=== PATIENT | female | born 1960 | race Caucasian/White ===

== ENCOUNTER 2023-03-20 16:30 | Emergency (ER) | payer OTHER, SELFPAY ==
[2023-03-20 16:32] VITALS: BP 151/98; PULSE 101; RESP 16; TEMP 36.8; O2SAT 97; BMI 30.4
--- NOTE | 2023-03-20 17:05 | EDS_ITS ---
HPI History of Present Illness HPI Narrative: Patient presents with pain in her left hip that has been getting progressively worse over the last 2 months. Patient states it came on gradually. Patient states it is constant. Patient describes her pain as aching. Patient states it is worse with ambulation and movement. Patient states he gets a little better with Epsom salt baths. Patient denies any paresthesias or weakness. Patient denies any trauma or injury. Patient states she has been taking Aleve with minimal relief. Chief Complaint: Lower Extremity Injury Informant: patient Onset/Context/Timing Onset: Month(s) (2) Context: Gradual Onset Timing: Continuous Quality of Pain: Aching Location: Left hip Worsened by: Ambulation Relieved by: Epsom salt baths Associated Symptoms Associated Symptoms: Negative for Parasthesia, Weakness or Loss of Funtion PFSH PFSH Medical History no medical history no medical history Home Medications hydrocodone-acetaminophen 5-325mg 5mg-325mg 1 tab PO Q6H PRN PRN Pain 3 days #10 TABLETS 03/20/23 [Rx Last Taken Unknown] Allergy/AdvReac Type Severity Reaction Status Date / Time No Known Allergies Allergy Verified 03/20/23 16:32 Surgical History (Updated 03/20/23 @ 17:[address] Kirill Mcgarry DO) History of colon resection History of hysterectomy Hx of inguinal herniorrhaphy Hx of resection of small bowel Social History Smoking Status: Never smoker ROS ROS ED Constitutional Constitutional ED: Denies chills or fever(s) Eyes Eyes: Denies blurry vision or change in vision ENT ENT ED: Denies rhinorrhea or sore throat Cardiovascular Cardiovascular: Denies chest pain or palpitations Respiratory/Chest Respiratory/Chest: Denies cough or dyspnea Gastrointestinal Gastrointestinal: Reports nausea; Denies vomiting Genitourinary Genitourinary ED: Denies dysuria or hematuria Musculoskeletal Musculoskeletal: Denies back pain or neck pain Integumentary Denies abscess or rash Neurologic Neurologic: Denies headache(s) or weakness Allergic/Immunologic Allergic/Immunologic ED: Denies mouth swelling or urticaria EXAM Physical Exam Const Vital Signs: 03/20/23 16:32 Temperature 98.2 F Temperature Source Temporal Pulse Rate 101 H Respiratory Rate 16 Blood Pressure 151/98 H Blood Pressure Mean 115 Pulse Ox 97 Oxygen Delivery Method Room Air Positive well nourished and well developed General Appearance ED: well developed and NAD HEENT Reports moist mucous membranes Neck full ROM and supple Extremity Extremity Narrative: There is tenderness over the anterior lateral aspect of the left hip. There is no bony crepitance or step-off. There is no obvious deformity noted. There is pain with internal and external rotation. There is some pain with resistive abduction and flexion. There is no calf tenderness or edema. Strength is 5/5 bilaterally in lower extremities. There are no sensory deficits noted. Pulses are equal bilaterally. Neuro oriented x3, CN's II-XII intact bilaterally, moves all extremities and no sensory deficits noted Sensorium / Orientation: alert Motor Exam: strength 5/5 throughout Psych mental status grossly normal MDM MDM MDM Narrative Medical decision making narrative: Differential diagnosis includes degenerative arthritis, occult fracture, and DVT. X-rays of the left hip will be obtained to assess for fracture and degenerative arthritis. Venous duplex of the left lower extremity will be obtained to assess for DVT. Radiography Diagnostic Testing: Clinical Impression(s) from Imaging Studies Hip/Pelvis X-Ray 03/20/23 17:56 IMPRESSION: No fracture Electronically Signed: Levon Gruber MD at 18:28 EST , X-rays of the left hip were obtained. There are 3 views. On my independent interpretation, there is no acute fracture. There are no degenerative changes noted. There is no soft tissue swelling noted. Radiologist also interpreted the x-rays and agrees. Venous duplex of the left lower extremity was obtained. There is no evidence of DVT. Treatment and Re-Evaluation Narrative: Patient was given a dose of morphine and Norflex. Patient states she is feeling somewhat better. Patient was given crutches. Patient was given a prescription for short course of [place]. Patient was instructed to continue using ice to the area. Patient was instructed to follow-up with her primary care physician in 5 to 7 days for further evaluation. Patient understood and was agreeable with the plan. All questions were answered. Discharge Plan Triage Chief Complaint: Lower Extremity Injury ED Provider: Kirill Mcgarry Dx/Rx/DC Orders Clinical Impression: Acute pain of left hip Instructions: ED Hip Strain Prescriptions: New hydrocodone-acetaminophen [hydrocodone-acetaminophen] 5-325 mg tablet 1 tab PO Q6H PRN PRN (Reason: Pain) 3 Days Qty: 10 0RF Primary Care Provider: Tiffany Pressley Referrals: Tiffany Pressley, [Primary Care Provider] - 5-7 Days Disposition Disposition: Home, Self Care
[2023-03-20] MEDS: Orphenadrine 60 MG/2 ML Ampul IM (17:45)
[2023-03-20] MEDS: Morphine 4 MG/ML Syringe IM (17:45)
--- NOTE | 2023-03-20 17:54 | US_ITS ---
STUDY: VENOUS DOPPLER ULTRASOUND - LEFT LOWER EXTREMITY REASON FOR EXAM: Female, 62 years old. LEFT HIP PAIN TECHNIQUE: Ultrasound evaluation of the deep vein system to include bone-scale imaging and compression was performed. Bone-scale imaging and Doppler sonographic evaluation, including duplex spectral analysis and qualitative color flow sonography, was performed. COMPARISON: None. FINDINGS: Common Femoral Vein: Normal compression, spontaneity and augmentation. Normal color Doppler. Common Femoral Vein/Greater Saphenous Junction: Normal compression, spontaneity and augmentation. Normal color Doppler. Deep Femoral Vein: Normal compression, spontaneity and augmentation. Normal color Doppler. Femoral Proximal: Normal compression, spontaneity and augmentation. Normal color Doppler. Femoral Middle: Normal compression, spontaneity and augmentation. Normal color Doppler. Femoral Distal: Normal compression, spontaneity and augmentation. Normal color Doppler. Popliteal Vein: Normal compression, spontaneity and augmentation. Normal color Doppler. Posterior Tibial Vein: Normal compression, spontaneity and augmentation. Normal color Doppler. Peroneal Vein: Normal compression, spontaneity and augmentation. Normal color Doppler. US/Venous Duplex Imag/Limited/Uni IMPRESSION: Normal venous Doppler ultrasound of the lower extremity. Electronically Signed: Levon Gruber MD at 20:36 EST ,
--- NOTE | 2023-03-20 17:56 | RAD_ITS ---
STUDY: X-RAY - PELVIS AND LEFT HIP REASON FOR EXAM: Female, 62 years old. Injury/Pain TECHNIQUE: 3 views of the pelvis and hip. COMPARISON: None. FINDINGS: There is a non-specific bowel gas pattern. Normal visualized soft tissue structures. Scoliosis. Normal bilateral iliac wings, sacroiliac joints and visualized sacrum. Normal bilateral superior and inferior pubic rami. Normal pubic symphysis. Normal bilateral ischial tuberosities. Normal visualized femoral head. Normal acetabulum. Normal hip joint. RAD/HIP, UNI W/ Pelvis 2-3 Views IMPRESSION: No fracture Electronically Signed: eLvon Gruber MD at 18:28 EST ,
--- NOTE | 2023-03-20 20:17 | ED.RN ---
Pt instructed not to leave waiting room until 2144 because of morphine. Pt agreeing with plan.
== END 2023-03-20 20:17 | disposition home or self-care (01) ==
PROVIDERS: Emergency Provider Emergency Medicine; PCP Family Medicine; Visit Provider Emergency Medicine
DX: M25.552 Pain in left hip (principal)
CPT/HCPCS: 73502; 93971; 96372; 99283

== ENCOUNTER → 2023-08-11 | Outpatient (CLI) | payer BC, SELFPAY ==
[2023-08-11 12:04] LABS: Absolute Lymphocyte Count 2.03 X10^3/uL (0.83-4.51); Basophil# 0.04 X10^3/uL; Basophil% 0.7 % (0-1); Eosinophils% 3.5 % (0-5); Hematocrit 41.3 % (37-47); Hemoglobin 13.4 g/dL (12.0-15.0); Lymphocyte # 2.03 X10^3/ul (0.83-4.51); Lymphocyte % 35.2 % (19-41); Mean Corp Hgb Conc 32.4 g/dL (32-36); Mean Corpuscular Volume 95.6 fL (81-99); Mean Platelet Vol. 9.7 fl (6.2-12.0); Monocyte# 0.46 X10^3/uL; NRBC Flagged by Analyzer 0 % (0-5); Neutrophil # 3.02 X10^3/uL (2.7-7.7); Neutrophil % 52.3 % (47-70); Platelet Count 323 K/mm3 (150-450); RBC Distribution Width CV 12.2 % (11.6-14.6); RBC Distribution Width SD 42.3 fl (35.1-43.9); Red Blood Count 4.32 M/mm3 (4.2-5.4); White Blood Count 5.8 K/mm3 (4.4-11.0)
[2023-08-11 12:27] LABS: AST(SGOT) 23 U/L (15-37); Alanine Aminotransfer ALT/SGPT 22 U/L (13-56); Albumin, Serum 3.4 g/dL (3.2-5.0); Alkaline Phosphatase 75 U/L (45-117); Anion Gap 9 (5-15); BUN 6 mg/dL (7-18); BUN/Creat Ratio 5.5 RATIO (10-20); Chloride 108 mmol/L (98-107); Cholesterol 344 mg/dL (200); EST Glomerular Filtration Rate 53 mL/min (>60); Est Glom Filt Rate - Afr Amer 65 mL/min (>60); Globulin 3.4 g/dL (2.2-4.2); Glucose 86 mg/dL (74-106); High Density Lipoprotein 56 mg/dL; Potassium 4.2 mmol/L (3.5-5.1); Protein, Total 6.8 g/dL (6.4-8.2); Sodium Level 142 mmol/L (136-145); Thyroid Stim Hormone (TSH) 1.97 uIU/mL (0.358-3.74); Triglycerides 323 mg/dL; Very Low Density Lipoprotein 65 mg/dL (5-40)
[2023-08-13 13:54] LABS: Vitamin D,25 Hydroxy 18.4 ng/mL
== END | disposition home or self-care (01) ==
PROVIDERS: PCP Family Medicine; Referring Provider Family Medicine; Visit Provider Family Medicine
DX: F32.A Depression, unspecified (principal); Z13.220 Encounter for screening for lipoid disorders; Z13.1 Encounter for screening for diabetes mellitus
CPT/HCPCS: 36415; 80053; 80061; 82306; 84443; 85025

== ENCOUNTER → 2023-12-31 | Outpatient (CLI) | payer BC, SELFPAY ==
[2023-12-31 10:02] LABS: Absolute Neutrophil Count 4.4 X10^3/uL (2.0-7.7); Basophil# 0.04 X10^3/uL; Basophil% 0.6 % (0-1); Eosinophil# 0.12 X10^3/uL; Eosinophils% 1.7 % (0-5); Hematocrit 40.3 % (37-47); Hemoglobin 13.5 g/dL (12.0-15.0); Lymphocyte % 29.6 % (19-41); Mean Corp Hgb Conc 33.5 g/dL (32-36); Mean Corpuscular Hgb 31.5 pg (27.0-32.0); Mean Corpuscular Volume 93.9 fL (81-99); Mean Platelet Vol. 9.3 fl (6.2-12.0); Monocyte% 5.6 % (0-10); NRBC Flagged by Analyzer 0 % (0-5); Neutrophil # 4.41 X10^3/uL (2.7-7.7); Neutrophil % 62.2 % (47-70); Platelet Count 315 K/mm3 (150-450); RBC Distribution Width CV 12.1 % (11.6-14.6); RBC Distribution Width SD 41.9 fl (35.1-43.9); Red Blood Count 4.29 M/mm3 (4.2-5.4); White Blood Count 7.1 K/mm3 (4.4-11.0)
[2023-12-31 10:09] LABS: Erythrocyte Sedimentation Rate 5 mm/hr (0-30)
[2023-12-31 10:45] LABS: AST(SGOT) 17 U/L (15-37); Alanine Aminotransfer ALT/SGPT 25 U/L (13-56); Albumin, Serum 3.4 g/dL (3.2-5.0); Alkaline Phosphatase 78 U/L (45-117); Amylase 33 U/L (25-115); Anion Gap 7 (5-15); BUN 10 mg/dL (7-18); BUN/Creat Ratio 10.1 RATIO (10-20); Calcium,Total 9.1 mg/dL (8.5-10.1); Chloride 106 mmol/L (98-107); Creatinine, Serum 0.99 mg/dL (0.55-1.02); EST Glomerular Filtration Rate 60 mL/min (>60); Est Glom Filt Rate - Afr Amer 73 mL/min (>60); Globulin 3.4 g/dL (2.2-4.2); Glucose 107 mg/dL (74-106); Lipase 31 U/L (13-75); Potassium 3.9 mmol/L (3.5-5.1); Protein, Total 6.8 g/dL (6.4-8.2); Sodium Level 139 mmol/L (136-145)
== END | disposition home or self-care (01) ==
LOC: MTLAB 07:42
PROVIDERS: PCP Family Medicine; Referring Provider Nurse Practitioner Adult Health; Visit Provider Nurse Practitioner Adult Health
DX: R10.32 Left lower quadrant pain (principal); K62.89 Other specified diseases of anus and rectum; R19.7 Diarrhea, unspecified; R11.0 Nausea; R53.83 Other fatigue
CPT/HCPCS: 36415; 80053; 82150; 83690; 83735; 85025; 85652

== ENCOUNTER → 2024-01-01 | Outpatient (CLI) | payer BC, SELFPAY | END | disposition home or self-care (01) | PROVIDERS: PCP Family Medicine; Referring Provider Nurse Practitioner Adult Health; Visit Provider Nurse Practitioner Adult Health | DX: R10.32 Left lower quadrant pain (principal); K62.89 Other specified diseases of anus and rectum; R19.7 Diarrhea, unspecified; R11.0 Nausea; R53.83 Other fatigue | CPT/HCPCS: 82274; 83630; 87177; 87209; 87493; 87506 ==

== ENCOUNTER → 2024-05-26 | Outpatient (CLI) | payer BC, SELFPAY ==
--- NOTE | 2024-05-26 10:13 | RAD_ITS ---
PROCEDURE: LUMBAR SPINE 2 OR 3 VIEWS 05/26/2024 REASON FOR EXAM: NEW PAIN WITH SCIATICA TECHNIQUE: 3 view(s) of the lumbar spine COMPARISON: None FINDINGS: Vertebrae: Pain vertebral body heights without findings. Discs: Advanced multilevel disc space narrowing with endplate osteophytes. Alignment: [id number] lumbar levoscoliosis. Mild leftward subluxation of L3 on L4. Facet arthrosis increases from superior to inferior. RAD/Lumbar Spine 2 or 3 Views IMPRESSION: ADVANCED DEGENERATIVE CHANGES OF THE LUMBAR SPINE. Reading Location: [facility]
--- NOTE | 2024-05-26 10:13 | RAD_ITS ---
PROCEDURE: HIP, UNI W/ PELVIS 2-3 VIEWS 05/26/2024 REASON FOR EXAM: PAIN, NEW TECHNIQUE: Three views of the left hip COMPARISON: None FINDINGS: Bones: Unremarkable. Joints: Mild degree of left hip joint space narrowing. Sclerosis of the symphysis pubis. Soft tissues: Calcified phleboliths in the left hemipelvis. Other: RAD/HIP, UNI W/ Pelvis 2-3 Views IMPRESSION: Mild degree of joint space narrowing of the left hip joint as well as narrowing and sclerosis of the symphysis pubis. Reading Location: [place] [id number]
[2024-05-26 13:01] LABS: Absolute Lymphocyte Count 2.04 X10^3/uL (0.83-4.51); Absolute Neutrophil Count 4.9 X10^3/uL (2.0-7.7); Basophil# 0.03 X10^3/uL; Basophil% 0.4 % (0-1); Eosinophil# 0.15 X10^3/uL; Hematocrit 39.9 % (37-47); Hemoglobin 13.1 g/dL (12.0-15.0); Lymphocyte # 2.04 X10^3/ul (0.83-4.51); Lymphocyte % 26.8 % (19-41); Mean Corp Hgb Conc 32.8 g/dL (32-36); Mean Corpuscular Volume 94.5 fL (81-99); Mean Platelet Vol. 9.9 fl (6.2-12.0); Monocyte# 0.42 X10^3/uL; Monocyte% 5.5 % (0-10); NRBC Flagged by Analyzer 0 % (0-5); Neutrophil # 4.94 X10^3/uL (2.7-7.7); Platelet Count 323 K/mm3 (150-450); RBC Distribution Width CV 12.3 % (11.6-14.6); RBC Distribution Width SD 42.7 fl (35.1-43.9); Red Blood Count 4.22 M/mm3 (4.2-5.4); White Blood Count 7.6 K/mm3 (4.4-11.0)
[2024-05-26 13:59] LABS: ALB/GLOB Ratio 1.6 RATIO (0.9-2.4); AST(SGOT) 27 U/L (<=31); Alanine Aminotransfer ALT/SGPT 32 U/L (<=34); Albumin, Serum 4.2 g/dL (3.4-4.8); Alkaline Phosphatase 78 U/L (35-104); Anion Gap 15 (5-15); BUN 13 mg/dL (4-19); Calcium,Total 9.6 mg/dL (7.6-11.0); Chloride 103 mmol/L (98-108); Cholesterol 328 mg/dL (<=200); Creatinine, Serum 1.11 mg/dL (0.70-1.20); EST Glomerular Filtration Rate 56 (>60); Globulin 2.6 g/dL (2.2-4.2); Glucose 94 mg/dL (70-99); High Density Lipoprotein 53 mg/dL; Low Density Lipoprotein Calc. 222 mg/dL; Potassium 3.9 mmol/L (3.3-5.1); Protein, Total 6.8 g/dL (5.9-8.4); Sodium Level 141 mmol/L (133-145); Triglycerides 265 mg/dL; Very Low Density Lipoprotein 53 mg/dL (5-40); cholesterol:hdl ratio screen 6.14
== END | disposition home or self-care (01) ==
PROVIDERS: PCP Family Medicine; Referring Provider Family Medicine; Visit Provider Family Medicine
DX: Z13.220 Encounter for screening for lipoid disorders (principal); R53.83 Other fatigue; R03.0 Elevated blood-pressure reading, without diagnosis of hypertension; M25.552 Pain in left hip; M54.50 Low back pain, unspecified
CPT/HCPCS: 36415; 72100; 73502; 80053; 80061; 82306; 84443; 85025

== ENCOUNTER → 2024-06-14 | Outpatient (CLI) | payer BC, SELFPAY ==
--- NOTE | 2024-06-14 10:25 | BD_ITS ---
PROCEDURE: DEXA BONE DENSITY STUDY 06/14/2024 REASON FOR EXAM: F, age 64 y/o . Postmenopausal. TECHNIQUE: DEXA scan of sites with data reported below. Scanner utilized: [employer] REFERENCE LINKS: [facility] Position[facility] COMPARISON: None FINDINGS: BMD and T-SCORES Lumbar spine: 1.332 g/cm2, T-score 2.6 Levels: L1 through L4 Left femoral neck: 0.934 g/cm2, T-score 0.8 Left total hip: 1.135 g/cm2, T-score 1.6 Right femoral neck: 0.911 g/cm2, T-score 0.6 Right total hip: 1.119 g/cm2, T-score 1.5 The World Health Organization has defined the following categories based on bone density: Normal bone density: T-score equal to or greater than -1.0 Osteopenia: T-score between -1.0 and -2.5 Osteoporosis: T-score equal to or less than -2.5 FRAX (or Comparable) Fracture Risk Assessment: 10 Year Probability of Fracture: Major Osteoporotic Fracture: 5.7% Hip Fracture: 0.1% (Note: FRAX is not to be reported in setting of normal range bone density, osteoporosis on DEXA, known history of osteoporosis, prior osteoporotic hip or vertebral fracture, or for any patient undergoing pharmacological treatment for bone loss.) The National Osteoporosis Foundation (NOF) recommends pharmacological treatment for patients with a FRAX 10-year risk of 3% or higher for a hip fracture, or 20% or higher for a major osteoporotic fracture, to prevent osteoporosis and reduce fracture risk. The patient does not meet the pharmacological treatment recommendations for prevention of osteoporosis. BD/Dexa Bone Density Study IMPRESSION: NORMAL T-SCORES. Recommend follow-up as clinically warranted. Reading Location: [id number]
== END | disposition home or self-care (01) ==
LOC: OPBD 10:17
PROVIDERS: PCP Family Medicine; Referring Provider Family Medicine; Visit Provider Family Medicine
DX: Z78.0 Asymptomatic menopausal state (principal); M54.40 Lumbago with sciatica, unspecified side; G47.10 Hypersomnia, unspecified
CPT/HCPCS: 77080

== ENCOUNTER → 2024-07-26 | Outpatient (CLI) | payer BC, SELFPAY ==
--- OUTSIDE RECORDS SUMMARY | 2024-07-26 10:11 | XMS RPT_ITS | CCD ---
Author Organization [facility] CliniSyid Care Team Providers Care Rn Navigator Name Role Phone HOMER CASTANEDA Unavailable Unavailable HOMER CASTANEDA Unavailable Unavailable Pending Provider Unavailable Unavailable Unavailable Unavailable Beto Pressley DO Primary Care Provider [phone] BETO PRESSLEY Primary Care Unavailable CHATA, LUISITO P Referring Unavailable BETO PRESSLEY Primary Care Unavailable CHATA, LUISITO P Referring Unavailable BETO PRESSLEY Primary Care Unavailable CHATA, LUISITO P Referring Unavailable CHATA LUISITO P Attending Unavailable BETO PRESSLEY Primary Care Unavailable Hector JAVED, Naz Mohan Primary Care Provider [phone] Rupinder JAVED, Pretty Primary Care Provider [phone] Pretty Bucio MD Attending Provider [phone] Pretty Bucio MD Referring Provider Elisabeth Jackson Attending Provider Nikolay JAVED, Dr. Landis Attending Provider TRASKA, BIANCA Attending Unavailable Rupinder, Chalon Primary Care Unavailable TRASKA, BIANCA Referring Unavailable Rupinder, Chalon Primary Care Unavailable TRASKA, BIANCA Referring Unavailable TRASKA, BIANCA Attending Unavailable Rupinder, Chalon Referring Unavailable Rupinder, Chalon Attending Unavailable Rupinder, Chalon Primary Care Unavailable Rupinder, Chalon Primary Care Unavailable Rupinder, Chalon Referring Unavailable Rupinder, Chalon Attending Unavailable Rupinder, Chalon Primary Care Unavailable Rupinder, Chalon Referring Unavailable Rupinder, Chalon Attending Unavailable TRASKA, IBANCA Attending Unavailable Rupinder, Chalon Primary Care Unavailable TRASKA, BIANCA Referring Unavailable Rupinder, Chalon Primary Care Unavailable Rupinder, Chalon Referring Unavailable Rupinder, Chalon Attending Unavailable Rupinder, Chalon Primary Care Unavailable Vidhi, Elisabeth Referring Unavailable Vidhi, Elisabeth Attending Unavailable Rupinder, Chalon Primary Care Unavailable Boby Lnik Attending Unavailable Rupinder, Chalon Primary Care Unavailable Rupinder, Chalon Referring Unavailable Vidhi, Elisabeth Attending Unavailable Rupinder, Chalon Primary Care Unavailable Vidhi, Elisabeth Referring Unavailable Vidhi, Elisabeth Attending Unavailable Allergies Allergy Classification Reported Allergen(s) Allergy Type Date of Onset Reaction(s) Facility (7 sources) doxycycline; Translations: [DOXYCYCLINE] Drug Allergy 3 Unknown, Other [facility] (7 sources) propoxyphene; Translations: [PROPOXYPHENE] Drug Allergy 4 [facility] (6 sources) Sulfonamides (Antibiotic); Translations: [SULFA (SULFONAMIDE ANTIBIOTICS)] Propensity to adverse reactions to drug (disorder) 0 Unknown [facility] (6 sources) PROPOXYPHENE N-ACETAMINOPHEN; Translations: [PROPOXYPHENE N-ACETAMINOPHEN] Propensity to adverse reactions to drug (disorder) 3 Rash [facility] (1 source) Sulfonamides (Antibiotic); Translations: [Sulfa Drugs] Allergy to drug (finding) [facility] Work Phone: (1 source) Sulfonamides (Antibiotic) Drug Intolerance 0 Other, Unknown [facility] Medications Current Medications Medication Drug Class(es) Dates Sig (Normalized) Sig (Original) enteric contrast (will be provided with radiology test) (1 source) Start: 07-29-2022 End: 07-30-2022 enteric contrast (will be provided with radiology test) For CT ABD/PEL W IVCON Routine order Administer, As Directed One Time Only, via Oral, Rectal, both Oral and Rectal, Enteric Tube, Stoma or Indwelling Catheter, Enteric Contrast as designated per enteric contrast guidelines 1 Each 0 07/29/2022 07/30/2022 Active Comment on above: For CT ABD/PEL W IVC ON Routine order Administer, As Directed One Time Only, via Oral, Rectal, both Oral and Rectal, Enteric Tube, Stoma or Indwelling Catheter, Enteric Contrast as designated per enteric contrast guidelines escitalopram 20 mg oral tablet (6 sources) Serotonin Reuptake Inhibitor Start: 03-07-2022 End: 04-01-2022 take 1 tablet by mouth once daily escitalopram (Lexapro) 20 MG tablet Take 1 tablet (20 mg) by mouth daily. 90 tablet 0 04/02/2022 Active Comment on above: Take 20 mg by mouth once daily. ibuprofen 200 mg oral capsule (5 sources) Nonsteroidal Anti-inflammatory Drug Start: 06-14-2024 take 1 capsule by mouth every six hours as needed Ibuprofen 200 mg capsule Active 200 mg PO EVERY 6 HOURS as needed June 14, 2024 12:00am ibuprofen (MOTRI N) 200 mg tablet Take 200-600 mg by mouth once daily as needed for Pain. 0 Active Comment on above: Take 200-600 mg by m outh once daily as needed for Pain. iv contrast (will be provided with radiology test) (1 source) Start: 07-30-19 End: 07-31-19 iv contrast (will be provided with radiology test) CT ABD/PEL -Inject, intravenously, once for 1 dose.No IV access, insert saline lock prior to the beginning of sedation, infusion, injection of imaging exam. Discontinue saline lock post exam. If Pt. has a central line or IVAD, may access for administration according to line specific nursing protocol. Once exam is complete flush line and de-access according to line specific nursing protocol in the CT contrast administration guidelines link. 1 Each 0 07/29/2022 07/30/2022 Active Comment on above: CT ABD/PEL -Inject, intravenously, once for 1 dose.No IV access, insert saline lock prior to the beginning of sedation, infusion, injection of imaging exam. Discontinue saline lock post exam. If Pt. has a central line or IVAD, may access for administration according to line specific nursing protocol. Once exam is complete flush line and de-access according to line specific nursing protocol in the CT contrast administration guidelines link. meloxicam 15 mg oral tablet (1 source) Nonsteroidal Anti-inflammatory Drug Start: 06-15-19 25 take 1 tablet by mouth once daily Meloxicam 15 mg tablet Active 15 mg PO daily June 14, 2024 12:00am take once day Completed/Discontinued Medications Medication Drug Class(es) Dates Sig (Normalized) Sig (Original) acetaminophen 325 mg / HYDROcodone bitartrate 5 mg oral tablet (3 sources) Opioid Agonist Start: 03-20-2023 End: 06-14-2024 Hydrocodone-Acetami nophen 5-325 mg tablet Discontinued 1 {tbl} PO EVERY 6 HOURS NEEDED as needed for Pain 11 11March 20, 2023 June 14, 2024 1:24pm Start: 03-20-2023 take 1 tablet by aida every six hours as needed Hydrocodone-Acetaminophen Active 1 TABLE T PO EVERY 6 HOURS NEEDED 11 11March 20, 2023 aspirin 81 mg oral tablet (4 sources) Platelet Aggregation Inhibitor, Nonsteroidal Anti-inflammatory Drug take 81 mg by mouth once daily ASPIRIN (ASPIR-81 ORAL) Take 81 mg by mouth once daily. 0 Active Comment on above: Take 81 mg by mouth once daily. DULoxetine 30 mg delayed release oral capsule (1 source) Serotonin and Norepinephrine Reuptake Inhibitor Start: 2016 take 1 capsule by mouth once daily DULoxetine HCl - 30 MG Oral Capsule Delayed Release Particles TAKE 1 CAPSULE BY MOUTH DAILY Quantity: 30 Refills: 0 Ordered: 03-Jul-2016 DO Start : 03-Jul-2016 Active hydrOXYzine hydrochloride 50 mg oral tablet (4 sources) Antihistamine take 1 tablet by mouth every eight hours as needed hydrOXYzine HCl (ATARAX) 50 mg tablet Take 50 mg by mouth three times daily as needed. 0 Active Comment on above: Take 50 mg by mouth three times daily as needed. Lactobacillus acidophilus (4 sources) take 2 tablets by mouth once daily LACTOBACILLUS ACIDOPHILUS (PROBIOTIC ACIDOPHILUS ORAL) Take 2 tablets by mouth once daily. 0 Active Comment on above: Take 2 tablets by mo [facility] once daily. lisinopril 5 mg oral tablet (4 sources) Angiotensin Converting Enzyme Inhibitor Start: 2016 take 1 tablet by mouth once daily lisinopril (PRINIVIL) 5 mg tablet Take 1 tablet by mouth once daily. 30 tablet 1 07/03/2016 Active Comment on above: Take 1 tablet by aida once daily. methscopolamine bromide 5 mg oral tablet (1 source) Anticholinergic Start: 2016 take 1 tablet by mouth twice daily Methscopolamine [place] 5 MG Oral Tablet TAKE 1 TABLET BY MOUTH TWICE DAILY Quantity: 60 Refills: 0 Ordered: 19-Feb-2017 DO Start : 27-Nov-2016 Active metoclopramide 10 mg oral tablet (4 sources) Dopamine-2 Receptor Antagonist Start: 2019 take 1 tablet by mouth every six hours as needed metoclopramide HCl (REGLAN) 10 mg tablet Take 1 tablet by mouth four times daily as needed (Nausea or Vomiting). 20 tablet 0 12/27/2019 Active Comment on above: Take 1 tablet by aida th four times daily as needed (Nausea or Vomiting). PARoxetine hydrochloride 30 mg oral tablet (1 source) Serotonin Reuptake Inhibitor Start: 2016 take 1 tablet by mouth once daily PARoxetine HCl - 30 MG Oral Tablet TAKE 1 TABLET BY MOUTH EVERY DAY Quantity: 30 Refills: 0 Ordered: 30-Oct-2016 DO Start : 26-Sep-2016 Active predniSONE 20 mg oral tablet (1 source) Start: 2021 take 2 tablets by mouth once daily, then take 1 tablet by mouth once daily at mealtime predniSONE 20 MG Oral Tablet 2 tablets daily for 4 days and then one tablet daily for 4 days with food. Quantity: 12 Refills: 0 Ordered: 10-Jul-2021 Bruce Keen MD Start : 10-Jul-2021 Active RABEprazole sodium 20 mg delayed release oral tablet (5 sources) Proton Pump Inhibitor Start: 2016 take 1 tablet by mouth once daily RABEprazole Sodium 20 MG Oral Tablet Delayed Release TAKE 1 TABLET BY MOUTH EVERY DAY Quantity: 30 Refills: 0 Ordered: 30-Oct-2016 DO Start : 29-Jul-2016 Active Comment on above: Take 20 mg by mouth once daily. simvastatin 20 mg oral tablet (4 sources) HMG-CoA Reductase Inhibitor Start: 2016 take 1 tablet by mouth once daily simvastatin (ZOCOR) 20 mg tablet Take 1 tablet by mouth once daily. 90 tablet 3 07/03/2016 Active Comment on above: Take 1 tablet by aida th once daily. Problems Active Problems Problem Classification Problem Date Documented Date Episodic/Chronic Abdominal hernia (3 sources) Left inguinal hernia ; Translations: [Unilateral inguinal hernia, without obstruction or gangrene, not specified as recurrent] Onset: 08-04-2022 Episodic Allergic reactions (1 source) Contact dermatitis due to Genus Toxicodendron; Translations: [Contact dermatitis and other eczema due to plants [except food]] Episodic Anxiety disorders (5 sources) Anxiety disorder; Translations: [Anxiety disorder, unspecified] Onset: 05-24-2012 11-22-2021 Chronic Disorders of lipid metabolism (5 sources) Hypercholesterolemia; Translations: [Pure hypercholesterolemia, unspecified] Onset: 08-14-2016 08-14-2016 Chronic Esophageal disorders (6 sources) Calles's esophagus with dysplasia, unspecified; Translations: [Calles's esophagus] Onset: 04-04-2014 08-14-2016 Chronic Essential hypertension (6 sources) Essential (primary) hypertension; Translations: [Essential hypertension] Onset: 07-03-2016 08-14-2016 Chronic Mood disorders (1 source) Severe recurrent major depression without psychotic features; Translations: [Major depressive disorder, recurrent severe without psychotic features] Onset: 03-21-2021 11-22-2021 Chronic Mood disorders (2 sources) Mood disorders; Translations: [Depression, unspecified] Onset: 08-19-2023 11-10-2021 Noninfectious gastroenteritis (5 sources) Lymphocytic colitis; Translations: [Other and unspecified noninfectious gastroenteritis and colitis] Onset: 02-19-2016 02-19-2016 Chronic Other non-traumatic joint disorders (3 sources) Hip pain; Translations: [Pain in left hip] 03-20-2023 Episodic Other screening for suspected conditions (not mental disorders or infectious disease) (1 source) Encounter for screening for lipoid disorders; Translations: [Encounter for screening for lipoid disorders] Onset: 06-01-2024 Episodic Other upper respiratory infections (2 sources) Sore throat symptom; Translations: [Acute pharyngitis] Episodic Residual codes; unclassified (1 source) Hypersomnia, unspecified; Translations: [Hypersomnia, unspecified] Onset: 07-15-2024 Chronic Residual codes; unclassified (1 source) Asymptomatic menopausal state; Translations: [Asymptomatic menopausal state] Onset: 06-20-2024 Episodic Spondylosis; intervertebral disc disorders; other back problems (2 sources) Degeneration of lumbar intervertebral disc; Translations: [Degenerative disc disease (DDD) of lumbar region with discogenic back pain and leg pa] 06-14-2024 Chronic Spondylosis; intervertebral disc disorders; other back problems (4 sources) Lumbar radiculopathy; Translations: [Radiculopathy, lumbar region] Onset: 06-14-2024 06-14-2024 Episodic Unclassified (1 source) Pure hypercholesterolemia, unspecified; Translations: [Pure hypercholesterolemia, unspecified] Onset: 08-14-2016 Unclassified (1 source) M51.362 - Other intervertebral disc degeneration, lumbar region with discogenic back pain and lower extremity pain,M54.16 - Radiculopathy, lumbar region Unclassified (1 source) Other intervertebral disc degeneration, lumbar region with discogenic back pain and lower extremity pain; Translations: [Other intervertebral disc degeneration, lumbar region with discogenic back pain and lower extremity pain] Onset: 06-24-2024 Unclassified (1 source) Low back pain, unspecified; Translations: [Low back pain, unspecified] Onset: 06-14-2024 Past or Other Problems Problem Classification Problem Date Documented Da te Episodic/Chronic Abdominal pain (5 sources) Left inguinal pain; Translations: [Left lower quadrant pain] Onset: 08-04-2022 Episodic Nonspecific chest pain (1 source) Other chest pain; Translations: [Other chest pain] Onset: 08-14-2016 Episodic Suicide and intentional self-inflicted injury (1 source) Toxic effect of carbon monoxide; Translations: [Toxic effect of carbon monoxide from unspecified source, intentional self-harm, initial encounter] Onset: 08-28-2020 11-22-2021 Episodic Results Test Name Value Interpretation Reference Range Facility Bone density reportOrdered B y: Katie Brady on 06-14-2024 Study report Skeletal system DXA [facility] Imaging Services [address] [place], [place] [address] Dexa Bone Density Study MR#: [id number] Acct: [id number] Name: CARMEL GUILLEN Rep #: [id number] : 1960 F 64 From: Aldo Brady DO PCP: Dr. Pretty Bucio MD Status: REG CL I Study:Dexa Bone Density Study Date of Exam: 06/14/24 Exam# [id number] Ordering Dr: Mariela Bucio MD PROCEDURE: DEXA BONE DENSITY STUDY 06/14/2024 REASON FOR EXAM: F, age 64 y/o . Postmenopausal. TECHNIQUE: DEXA scan of sites with data reported below. Scanner utilized: GenSpera [facility] Positions COMPARISON: None FINDINGS: BMD and T-SCORES Lumbar spine: 1.332 g/cm2, T-score 2.6 Levels: L1 through L4 Left femoral neck: 0.934 g/cm2, T-score 0.8 Left total hip: 1.135 g/cm2, T-score 1.6 Right femoral neck: 0.911 g/cm2, T-score 0.6 Right total hip: 1.119 g/cm2, T-score 1.5 The World Health Organization has defined the following categories based on bonedensity: Normal bone density: T-score equal to or greater than -1.0 Osteopenia: T-score between -1.0 and -2.5 Osteoporosis: T-score equal to or less than -2.5 FRAX (or Comparable) Fracture Risk Assessment: 10 Year Probability of Fracture: Major Osteoporotic Fracture: 5.7% Hip Fracture: 0.1% (Note: FRAX is not to be reported in setting of normal range bone density, osteoporosis on DEXA, known history of osteoporosis, prior osteoporotic hip or vertebral fracture, or for any patient undergoing pharmacological treatment for bone loss.) The National Osteoporosis Foundation (NOF) recommends pharmacological treatment for patients with a FRAX 10-year risk of 3% or higher for a hip fracture, or 20% or higher for a major osteoporotic fracture, to prevent osteoporosis and reduce fracture risk. The patient does not meet the pharmacological treatment recommendations for prevention of osteoporosis. BD/Dexa Bone Density Study IMPRESSION: NORMAL T-SCORES. Recommend follow-up as clinically warranted. Reading Location: [id number] CC: Dr. Pretty Bucio MD ~ Vrt Mechanic: Signed [facility] Cerv Spine 4 or 5 Viewson Cerv Spine 4 or 5 Views [facility] Imaging Services [address] [place], [place] [id number] Cerv Spine 4 or 5 Views MR#: [id number] Acct: [id number] Name: CARMEL GUILLEN Rep #: [id number] : 1960 F 64 From: Denzel Elise MD PCP: Dr. Pretty Bucio MD Status: DEP AMB Study: Cerv Spine 4 or 5 Views Date of Exam: 06/14/24 Exam# [id number] Ordering Dr: Elisabeth Mosher PROCEDURE: CERV SPINE 4 OR 5 VIEWS 06/14/2024 REASON FOR EXAM: CHRONIC PAIN TECHNIQUE: 4 views of the cervical spine. AP, lateral and flexion-extension COMPARISON: None available FINDINGS: Cervical spine is visualized on the lateral view from the skull base to the bottom of C7. C7-T1 disc space is not adequately seen. Straightening may represent positioning or spasm. No prevertebral soft tissue swelling. No fracture or malalignment visualized spine. Multilevel spondylosis/discogenic change with degenerative endplate/uncovertebral change with eoakzqgo-lf-yfiadf disc space narrowing C3 through C7. No evidence of instability. Visualized apices appear clear. RAD/Cerv Spine 4 or 5 Views IMPRESSION: Cervical spine is visualized on the lateral view from the skull base to the bottom of C7. C7-T1 disc space is not adequately seen. Multilevel spondylosis/discogenic change C3 through C7 as above. Straightening may represent positioning or spasm. Reading Location: [id number] CC: MATEO Linda; Dr. Pretty Bucio MD Vrt Mechanic: Signed Normal [facility] Dexa Bone Density Studyon Dexa Bone Density Study [facility] Imaging Services [address] [place] [id number] Dexa Bone Density Study MR#: [id number] Acct: [id number] Name: WILMERCARMEL M Rep #: [id number] : 1960 F 64 From: Katie Manzo PCP: Dr. Pretty Bucio MD Status: REG CLI Study: Dexa Bone Density Study Date of Exam: 06/14/24 Exam# [id number] Ordering Dr: Pretty Bucio MD PROCEDURE: DEXA BONE DENSITY STUDY 06/14/2024 REASON FOR EXAM: F, age 64 y/o . Postmenopausal. TECHNIQUE: DEXA scan of sites with data reported below. Scanner utilized: GenSpera REFERENCE LINKS: [facility] Adult Positions COMPARISON: None FINDINGS: BMD and T-SCORES Lumbar spine: 1.332 g/cm2, T-score 2.6 Levels: L1 through L4 Left femoral neck: 0.934 g/cm2, T-score 0.8 Left total hip: 1.135 g/cm2, T-score 1.6 Right femoral neck: 0.911 g/cm2, T-score 0.6 Right total hip: 1.119 g/cm2, T-score 1.5 The World Health Organization has defined the following categories based on bone density: Normal bone density: T-score equal to or greater than -1.0 Osteopenia: T-score between -1.0 and -2.5 Osteoporosis: T-score equal to or less than -2.5 FRAX (or Comparable) Fracture Risk Assessment: 10 Year Probability of Fracture: Major Osteoporotic Fracture: 5.7% Hip Fracture: 0.1% (Note: FRAX is not to be reported in setting of normal range bone density, osteoporosis on DEXA, known history of osteoporosis, prior osteoporotic hip or vertebral fracture, or for any patient undergoing pharmacological treatment for bone loss.) The National Osteoporosis Foundation (NOF) recommends pharmacological treatment for patients with a FRAX 10-year risk of 3% or higher for a hip fracture, or 20% or higher for a major osteoporotic fracture, to prevent osteoporosis and reduce fracture risk. The patient does not meet the pharmacological treatment recommendations for prevention of osteoporosis. BD/Dexa Bone Density Study IMPRESSION: NORMAL T-SCORES. Recommend follow-up as clinically warranted. Reading Location: [facility] CC: Dr. Pretty Bucio MD Vrt Mechanic: Signed Normal [facility] L/S Spine Bending Flex/[place] 06-14-2024 L/S Spine Bending Flex/Ext [facility] Imaging Services [address] [place] [id number] L/S Spine Bending Flex/Ext MR#: [id number] Acct: [id number] Name: CARMEL GUILLEN Rep #: [id number] : 1960 F 64 From: Christopher patel MD PCP: Dr. Pretty Bucio MD Status: DEP AMB Study: L/S Spine Bending Flex/Ext Date of Exam: 06/14 Exam# [id number] Ordering Dr: Elisabeth Mosher PROCEDURE: L/S SPINE BENDING FLEX/EXT 06/14/2024 REASON FOR EXAM: CHRONIC PAIN TECHNIQUE: Standing AP view(s) of the thoracic and lumbar spine. COMPARISON: None FINDINGS: Lumbar lordosis is maintained. Vertebral body heights are within normal limits. Multilevel loss of disc spaces throughout the lumbar spine. No malalignment on the flexion and extension images. Moderate multilevel degenerative changes. RAD/L/S Spine Bending Flex/Ext IMPRESSION: No acute findings. Multilevel moderate degenerative changes. Reading Location: TON CC: MATEO Linda; Dr. Pretty Bucio MD Vrt Mechanic: Signed Normal [facility] Orthopedic Visit Reporton Orthopedic Visit Report [facility] [address] [place] [address] OFFICE VISIT Date of Service: 06/14/24 MR#: [id number] Acct: [id number] Name: CARMEL GUILLEN Rep #: [id number] : 1960 Provider: MATEO Linda Age/Sex: 64/F Location: [id number] Status: Signed Intake Vital Signs 03/20/23 16:32 06/14/24 13:21 Height 5 ft 6 in 5 ft 6 in Weight: 205 lb 6 oz BMI 33.1 Intake Visit Reasons: LUMBAR SPINE Chief Complaint: Lumbar spine pain Accompanied by: Self Is patient in pain?: Yes Pain scale (1-10): 6 Allergies No Known Allergies Allergy (Verified 06/14/24 13:24) Medications ???Medication ???Instructions ???Recorded ???Confirmed ???Type ibuprofen 200 mg capsule 200 mg PO Q6H PRN 06/14/24 5 History meloxicam 15 mg tablet 15 mg PO QDAY #30 tabs 06/14/24 Rx Have you fallen in the past year?: No PFSH Medical History High cholesterol Surgical History Hx of resection of small bowel History of colon resection History of hysterectomy Hx of inguinal herniorrhaphy Social History Smoking Status: Never smoker HPI LUMBAR SPINE Details: This documentation accurately reflects the service provided and the decisions made by me, MATEO Linda 06/14/24 1321. Part of today???s visit was documented by Alireza Jama MA, acting as scribe. CARMEL GUILLEN is a 64 year old F here today for lumbar spine pain. Numbness and tingling started 6 months ago and has been worsening since that time. The pain is like a shooting and pulsing pain. Patient states that her fingers and toes go numb. At night she feels like an electric shock that goes down the legs. Left sided groin pain and pain, numbness, and tingling that goes down the entire leg. The left side seems to be worse than the right however she does have symptoms on both. Standing and walking makes the symptoms worse. She says that she will use a crutch periodically which makes her more stable. Patient denies any surgeries in the back. Hx of hysterectomy. Sitting does make the symptoms more tolerable but it does cause muscle stiffness. Working, or moving in general makes the pain worse. The patient also says that she feels like she has had some urinary urgency related to the low back pain due to feeling a generalized numbness however this is not a consistent issue. Patient denies any injections, or doing any physical therapy. Patient denies any diabetes, or blood thinners. Denies any heart or lung issues. Patient denies any smoking. Patient does have to concentrate on holding something, because her fingers get numb. She denies dropping any things out of her hands. The numbness and tingling that she gets in her arms is just an occasional issue and is not as consistent as still low back pain and radicular symptoms in the legs. She says she will also get a burning sensation in her arms in different locations at different times, this is in both arms. This issue is also equal bilaterally. Sometimes she has to hold on to things, because her balance isn't very good due to the numbness she feels in her legs. Ortho Exam Spine SPINE TESTING CERVICAL THORACIC LUMBAR Musculoskeletal Strength 0=absent - 5=normal Details: Neurological exam of the upper and lower extremities shows 5X5 power. Normal sensation across all dermatomes. No hyperreflexia. There is mild midline and paraspinal tenderness. Coding Level of Care Code Off vis,new,level 4 Diagnoses Degenerative disc disease (DDD) of lumbar region with discogenic back pain and leg pain M51.362 Lumbar radiculopathy M54.16 Assessment and Plan Assessment and Plan (1) Degenerative disc disease (DDD) of lumbar region with discogenic back pain and leg pain: Status: Acute (2) Lumbar radiculopathy: Status: Acute Orders: Orders L/S Spine Bending Flex/Ext Today M54.50 - Low back pain, unspecified Cerv Spine 4 or 5 Views Today M54.2 - Cervicalgia Spine Lumbar (Routine) Today M51.362 - Other intervertebral disc degeneration, lumbar region with discogenic back pain and lower extremity pain, M54.16 - Radiculopathy, lumbar region Referrals Physical Therapy Referral 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 Normal [facility] Absolute lymphocyte countOrd ered By: Pretty Bucio on 05-26-2024 Lymphocytes Auto (Unsp spec) [#/Vol] 2.04 10*3/uL 0.83-4.51 [facility] Absolute neutrophil countOrd ered By: Pretty Bucio on 05-26-2024 Neutrophils (Bld) [#/Vol] 4.9 10*3/uL 2.0-7.7 [facility] Anion gap in Serum or Plasma Ordered By: Pretty Bucio on 05-26-2024 Anion gap [Moles/Vol] 15 mmol/L 5-15 [facility] Automated lymphocyte count a s percentage of total leukocytesOrdered By: Pretty Bucio on 05-26-2024 Lymphocytes/100 WBC Auto (Unsp spec) 26.8 % 19- [facility] BUN/creatinine ratioOrdered By: Pretty Bucio on 05-26-2024 Urea nitrogen/Creatinine [Mass ratio] 12.0 mg/mg 10-20 [facility] Basophil percentageOrdered B y: Prtety Bucio on 05-26-2024 Basophils/100 WBC (Bld) 0.4 % 0-1 [facility] Bilirubin, totalOrdered By: Pretty Bucio on 05-26-2024 Bilirubin [Mass/Vol] 0.20 mg/dL 0.00-1.30 [facility] CBC W/Diff, Automatedon 05-10 Absolute Lymph 2.04 X10 3/uL Normal 0.83-4.51 [facility] Comment on above: Order Comment: Order Date: 05/26/24 Order Info: 0184-1 - CBCD Performed By: #### L 500.4050, L501.9520, L500.4100, L100.0100 #### [facility] [address] [place], [address] Absolute Neut 4.9 X10 3/uL Normal 2.0-7.7 [facility] Comment on above: Order Comment: Order Date: 05/26/24 Order Info: 0184-1 - CBCD Performed By: #### L 500.4050, L501.9520, L500.4100, L100.0100 #### [facility] [address] [place], [address] Basophils/100 WBC (Bld) 0.4 % Normal 0-1 [facility] Comment on above: Order Comment: Order Date: 05/26/24 Order Info: 0184-1 - CBCD Performed By: #### L 500.4050, L501.9520, L500.4100, L100.0100 #### [facility] [address] [place], [address] Eosinophils/100 WBC (Bld) 2.0 % Normal 0-5 [facility] Comment on above: Order Comment: Order Date: 05/26/24 Order Info: 0184- - CBCD Performed By: #### L 500.4050, L501.9520, L500.4100, L100.0100 #### [facility] [address] [place], [address] Erythrocyte distribution width (RBC) [Ratio] 12.3 % Normal 11.6-14.6 [facility] Comment on above: Order Comment: Order Date: 05/26/24 Order Info: 018- - CBCD Performed By: #### L 500.4050, L501.9520, L500.4100, L100.0100 #### [facility] [address] [place], [address] Hematocrit (Bld) [Volume fraction] 39.9 % Normal 37-47 [facility] Comment on above: Order Comment: Order Date: 05/26/24 Order Info: 0184 - CBCD Performed By: #### L 500.4050, L501.9520, L500.4100, L100.0100 #### [facility] [address] [place], [address] Hemoglobin (Bld) [Mass/Vol] 13.1 g/dL Normal 12.0-15.0 [facility] Comment on above: Order Comment: Order Date: 05/26/24 Order Info: 0184- - CBCD Performed By: #### L 500.4050, L501.9520, L500.4100, L100.0100 #### [facility] [address] [place], [address] IG% 0.300 Normal 0.0-0.9 [facility] Comment on above: Order Comment: Order Date: 05/26/24 Order Info: 0184- - CBCD Result Comment: IG% - Immature Granulocytes (promyelocytes, myelocytes and metamyelocytes) > 1% indicates that a LEFT SHIFT is Present. Performed By: #### L 500.4050, L501.9520, L500.4100, L100.0100 #### [facility] [address] [place], [address] Lymphocytes/100 WBC (Bld) 26.8 % Normal 19-41 [facility] Comment on above: Order Comment: Order Date: 05/26/24 Order Info: 0184-1 - CBCD Performed By: #### L 500.4050, L501.9520, L500.4100, L100.0100 #### [facility] [address] [place], [address] MCH (RBC) [Entitic mass] 31.0 pg Normal 27.0-32.0 [facility] Comment on above: Order Comment: Order Date: 05/26/24 Order Info: 0184- - CBCD Performed By: #### L 500.4050, L501.9520, L500.4100, L100.0100 #### [facility] [address] [place], [address] MCHC (RBC) [Mass/Vol] 32.8 g/dL Normal 32-36 [facility] Comment on above: Order Comment: Order Date: 05/26/24 Order Info: 0184- - CBCD Performed By: #### L 500.4050, L501.9520, L500.4100, L100.0100 #### [facility] [address] [place], [address] MCV (RBC) [Entitic vol] 94.5 fL Normal 81-99 [facility] Comment on above: Order Comment: Order Date: 05/26/24 Order Info: 0184-1 - CBCD Performed By: #### L 500.4050, L501.9520, L500.4100, L100.0100 #### [facility] [address] [place], [address] Monocytes/100 WBC (Bld) 5.5 % Normal 0-10 [facility] Comment on above: Order Comment: Order Date: 05/26/24 Order Info: 0184-1 - CBCD Performed By: #### L 500.4050, L501.9520, L500.4100, L100.0100 #### [facility] [address] [place], [address] Neutrophils/100 WBC (Bld) 65.0 % Normal 47-70 [facility] Comment on above: Order Comment: Order Date: 05/26/24 Order Info: 0184-1 - CBCD Performed By: #### L 500.4050, L501.9520, L500.4100, L100.0100 #### [facility] [address] [place], [address] Nucleated RBC (Bld) [#/Vol] 0 10*3/uL Normal 0-5 [facility] Comment on above: Order Comment: Order Date: 05/26/24 Order Info: 0184-1 - CBCD Performed By: #### L 500.4050, L501.9520, L500.4100, L100.0100 #### [facility] [address] [place], [address] Platelet mean volume (Bld) [Entitic vol] 9.9 fL Normal 6.2-12.0 [facility] Comment on above: Order Comment: Order Date: 05/26/24 Order Info: 0184-1 - CBCD Performed By: #### L 500.4050, L501.9520, L500.4100, L100.0100 #### [facility] [address] [place], [address] Platelets (Bld) [#/Vol] 323 10*3/uL Normal 150-450 [facility] Comment on above: Order Comment: Order Date: 05/26/24 Order Info: 0184-1 - CBCD Performed By: #### L 500.4050, L501.9520, L500.4100, L100.0100 #### [facility] [address] [place], [address] RBC (Bld) [#/Vol] 4.22 10*6/uL Normal 4.2-5.4 [facility] Comment on above: Order Comment: Order Date: 05/26/24 Order Info: 0184-1 - CBCD Performed By: #### L 500.4050, L501.9520, L500.4100, L100.0100 #### [facility] [address] [place], [address] RDW SD 42.7 fl Normal 35.1-43.9 [facility] Comment on above: Order Comment: Order Date: 05/26/24 Order Info: 0184-1 - CBCD Performed By: #### L 500.4050, L501.9520, L500.4100, L100.0100 #### [facility] [address] [place], [address] WBC (Bld) [#/Vol] 7.6 10*3/uL Normal 4.4-11.0 [facility] Comment on above: Order Comment: Order Date: 05/26/24 Order Info: 0184-1 - CBCD Performed By: #### L 500.4050, L501.9520, L500.4100, L100.0100 #### [facility] [address] [place], [address] Calculated very low density lipoprotein (VLDL) cholesterol measurementOrdered By: Pretty Bucio on 05-26-2024 Calculated very low density lipoprotein (VLDL) cholesterol measurement 53 mg/dL High 5-40 [facility] VLDL Cholesterol 53 mg/dL High 5-40 [facility] Carbon dioxide, total [Moles /volume] in Central venous bloodOrdered By: Pretty Bucio on 05-26-2024 CO2 [Moles/Vol] 23.0 mmol/L 21.0-32.0 [facility] Chloride assayOrdered By: Shae Bucio on 05-26-2024 Chloride [Moles/Vol] 103 mmol/L 98-108 [facility] Comprehensive Metabolic Prof ilon 05-26-2024 Albumin [Mass/Vol] 4.2 g/dL Normal 3.4-4.8 [facility] Comment on above: Order Comment: Order Date: 05/26/24 Order Info: 785- - CMP Order Info: - LIPID Order Info: [id number] - TSH Performed By: #### L 500.4050, L501.9520, L500.4100, L100.0100 #### [facility] [address] [place], [address] Albumin/Globulin [Mass ratio] 1.6 {ratio} Normal 0.9-2.4 [facility] Comment on above: Order Comment: Order Date: 05/26/24 Order Info: 785-02 - CMP Order Info: - LIPID Order Info: [id number] - TSH Performed By: #### L 500.4050, L501.9520, L500.4100, L100.0100 #### [facility] [address] [place], [place], [address] ALK PHOS 78 U/L Normal 35-104 [facility] Comment on above: Order Comment: Order Date: 05/26/24 Order Info: [id number] - CMP Order Info: - LIPID Order Info: [id number] - TSH Performed By: #### L 500.4050, L501.9520, L500.4100, L100.0100 #### [facility] [address] [place], [address] ALT [Catalytic activity/Vol] 32 U/L Normal <=34 [facility] Comment on above: Order Comment: Order Date: 05/26/24 Order Info: 0786-1 - CMP Order Info: [id number] - LIPID Order Info: 3015-04 - TSH Performed By: #### L 500.4050, L501.9520, L500.4100, L100.0100 #### [facility] [address] [place], [address] AST [Catalytic activity/Vol] 27 U/L Normal <=31 [facility] Comment on above: Order Comment: Order Date: 05/26/24 Order Info: 0786-1 - CMP Order Info: [id number] - LIPID Order Info: 3015-04 - TSH Performed By: #### L 500.4050, L501.9520, L500.4100, L100.0100 #### [facility] [address] [place], [address] Bilirubin [Mass/Vol] 0.20 mg/dL Normal 0.00-1.30 [facility] Comment on above: Order Comment: Order Date: 05/26/24 Order Info: 07 - CMP Order Info: - LIPID Order Info: [id number] - TSH Performed By: #### L 500.4050, L501.9520, L500.4100, L100.0100 #### [facility] [address] [place], [address] BUN/CRE 12.0 RATIO Normal 10-20 [facility] Comment on above: Order Comment: Order Date: 05/26/24 Order Info: 0786- - CMP Order Info: - LIPID Order Info: [id number] - TSH Performed By: #### L 500.4050, L501.9520, L500.4100, L100.0100 #### [facility] [address] [place], [address] Calcium [Mass/Vol] 9.6 mg/dL Normal 7.6-11.0 [facility] Comment on above: Order Comment: Order Date: 05/26/24 Order Info: 0786-1 - CMP Order Info: [id number] - LIPID Order Info: 3 - TSH Performed By: #### L 500.4050, L501.9520, L500.4100, L100.0100 #### [facility] [address] [place], [address] Chloride [Moles/Vol] 103 mmol/L Normal 98-108 [facility] Comment on above: Order Comment: Order Date: 05/26/24 Order Info: 0786-1 - CMP Order Info: [id number] - LIPID Order Info: 3015-3 - TSH Performed By: #### L 500.4050, L501.9520, L500.4100, L100.0100 #### [facility] [address] [place], [address] CO2 [Moles/Vol] 23.0 mmol/L Normal 21.0-32.0 [facility] Comment on above: Order Comment: Order Date: 05/26/24 Order Info: [id number] - CMP Order Info: - LIPID Order Info: 3 - TSH Performed By: #### L 500.4050, L501.9520, L500.4100, L100.0100 #### [facility] [address] [place], [address] Creatinine [Mass/Vol] 1.11 mg/dL Normal 0.70-1.20 [facility] Comment on above: Order Comment: Order Date: 05/26/24 Order Info: 0786 - CMP Order Info: [id number] - LIPID Order Info: 3 - TSH Performed By: #### L 500.4050, L501.9520, L500.4100, L100.0100 #### [facility] [address] [place], [address] GAP 15 Normal 5-15 [facility] Comment on above: Order Comment: Order Date: 05/26/24 Order Info: 0786-1 - CMP Order Info: [id number] - LIPID Order Info: [id number] - TSH Performed By: #### L 500.4050, L501.9520, L500.4100, L100.0100 #### [facility] [address] [place], [address] GFR/1.73 sq M.predicted among non-blacks MDRD (S/P/Bld) [Vol rate/Area] 56 mL/min/{1.73_m2} Low >60 [facility] Comment on above: Order Comment: Order Date: 05/26/24 Order Info: [id number] - CMP Order Info: [id number] - LIPID Order Info: [id number] - TSH Result Comment: mL/m in/1.73m2 CKD-EPI Creatinine Equation (2020) Performed By: #### L 500.4050, L501.9520, L500.4100, L100.0100 #### [facility] [address] [place], [address] Globulin (S) [Mass/Vol] 2.6 g/dL Normal 2.2-4.2 [facility] Comment on above: Order Comment: Order Date: 05/26/24 Order Info: 0786- - CMP Order Info: [id number] - LIPID Order Info: [id number] - TSH Performed By: #### L 500.4050, L501.9520, L500.4100, L100.0100 #### [facility] [address] [place], [address] Glucose [Mass/Vol] 94 mg/dL Normal 70-99 [facility] Comment on above: Order Comment: Order Date: 05/26/24 Order Info: 0786-1 - CMP Order Info: [id number] - LIPID Order Info: 3016-3 - TSH Performed By: #### L 500.4050, L501.9520, L500.4100, L100.0100 #### [facility] [address] [place], [address] Potassium [Moles/Vol] 3.9 mmol/L Normal 3.3-5.1 [facility] Comment on above: Order Comment: Order Date: 05/26/24 Order Info: 0786-1 - CMP Order Info: [id number] - LIPID Order Info: 3 - TSH Performed By: #### L 500.4050, L501.9520, L500.4100, L100.0100 #### [facility] [address] [place], [address] Sodium [Moles/Vol] 141 mmol/L Normal 133-145 [facility] Comment on above: Order Comment: Order Date: 05/26/24 Order Info: 0786-1 - CMP Order Info: [id number] - LIPID Order Info: [id number] - TSH Performed By: #### L 500.4050, L501.9520, L500.4100, L100.0100 #### [facility] [address] [place], [address] T PROT 6.8 g/dL Normal 5.9-8.4 [facility] Comment on above: Order Comment: Order Date: 05/26/24 Order Info: 0786- - CMP Order Info: [id number] - LIPID Order Info: [id number] - TSH Performed By: #### L 500.4050, L501.9520, L500.4100, L100.0100 #### [facility] [address] [place], [address] Urea nitrogen [Mass/Vol] 13 mg/dL Normal 4-19 [facility] Comment on above: Order Comment: Order Date: 05/26/24 Order Info: [id number] - CMP Order Info: [id number] - LIPID Order Info: 3 - TSH Performed By: #### L 500.4050, L501.9520, L500.4100, L100.0100 #### [facility] [address] [place], [address] Eosinophil percentageOrdered By: Pretty Bucio on 05-26-2024 Eosinophils/100 WBC (Bld) 2.0 % 0-5 [facility] Erythrocyte distribution wid th (RBC) [Ratio]Ordered By: Pretty Bucio on 05-26-2024 Erythrocyte distribution width (RBC) [Entitic vol] 42.7 fL 35.1-43.9 [facility] Erythrocyte distribution wid th ratioOrdered By: Pretty Bucio on 05-26-2024 Erythrocyte distribution width (RBC) [Ratio] 12.3 % 11.6-14.6 [facility] Erythrocyte distribution wid th standard deviationOrdered By: Pretty Bucio on 05-26-2024 Erythrocyte distribution width (RBC) [Ratio] 42.7 fl 35.1-43.9 [facility] GFR/1.73 sq M.predicted [place] non-blacks MDRD (S/P/Bld) [Vol rate/Area]Ordered By: Pretty Bucio on 05-26-2024 Estimated GFR (MDRD) Non-Af Amer 56 Low >60 [facility] Comment on above: mL/min/1.73m2 CKD-EP I Creatinine Equation (2020) Glomerular filtration rate ( GFR) estimation/1.73 sq m using serum, plasma, or whole bOrdered By: Pretty Bucio on 05-26-2024 GFR/1.73 sq M.predicted among non-blacks MDRD (S/P/Bld) [Vol rate/Area] 56 mL/min/{1.73_m2} Low >60 [facility] Comment on above: mL/min/1.73m2 CKD-EP I Creatinine Equation (2020) HIP, UNI W/ Pelvis 2-3 Views on 05-26-2024 HIP, UNI W/ Pelvis 2-3 Views [facility] Imaging Services [address] [place] [address] [id number] HIP, UNI W/ Pelvis 2-3 Views MR#: [id number] Acct: [id number] Name: CARMEL GUILLEN Rep #: [id number] : 1960 F 64 From: Anthony canales MD PCP: Dr. Pretty Bucio MD Status: REG CLI Study: HIP, UNI W/ Pelvis 2-3 Views Date of Exam: Exam# [id number] Ordering Dr: Pretty Bucio MD PROCEDURE: HIP, UNI W/ PELVIS 2-3 VIEWS 05/26/2024 REASON FOR EXAM: PAIN, NEW TECHNIQUE: Three views of the left hip COMPARISON: None FINDINGS: Bones: Unremarkable. Joints: Mild degree of left hip joint space narrowing. Sclerosis of the symphysis pubis. Soft tissues: Calcified phleboliths in the left hemipelvis. Other: RAD/HIP, UNI W/ Pelvis 2-3 Views IMPRESSION: Mild degree of joint space narrowing of the left hip joint as well as narrowing and sclerosis of the symphysis pubis. Reading Location: [facility] CC: Dr. Pretty Bucio MD Vrt Mechanic: Signed Normal [facility] Hematocrit Auto (Bld) [Volum e fraction]Ordered By: Pretty Bucio on 05-26-2024 Hematocrit (Bld) [Volume fraction] 39.9 % 37-47 [facility] Hemoglobin measurementOrdere d By: Pretty Bucio on 05-26-2024 Hemoglobin (Bld) [Mass/Vol] 13.1 g/dL 12.0-15.0 [facility] Immature granulocytes/100 WB C Auto (Bld)Ordered By: Pretty Bucio on 05-26-2024 Immature granulocytes/100 WBC (Bld) 0.300 % 0.0-0.9 [facility] Comment on above: IG% - Immature Granu locytes (promyelocytes, myelocytes and metamyelocytes) > 1% indicates that a LEFT SHIFT is Present. LDL calc ser/plasOrdered By: Pretty Bucio on 05-26-2024 Cholesterol in LDL [Mass/Vol] 222 mg/dL [facility] Comment on above: Uaetcgjobz=992-569 m g/dL & Higher Heue=913 mg/dL or greater LDL Cholesterol, Calculated 222 mg/dL [facility] Comment on above: Jykjfhpnct=176-502 m g/dL & Higher Ycig=341 mg/dL or greater Laboratory - Chemistry and C hemistry - challengeOrdered By: Pretty Bucio on 05-26-2024 AST [Catalytic activity/Vol] 27 U/L <32 [facility] Lipid Profileon 05-26-2024 CHOL:HDL 6.14 Normal [facility] Comment on above: Order Comment: Order Date: 05/26/24 Order Info: 0786-1 - CMP Order Info: [id number] - LIPID Order Info: [id number] - TSH Performed By: #### L 500.4050, L501.9520, L500.4100, L100.0100 #### [facility] [address] [place], [address] Cholesterol [Mass/Vol] 328 mg/dL High <=200 [facility] Comment on above: Order Comment: Order Date: 05/26/24 Order Info: 0786- - CMP Order Info: [id number] - LIPID Order Info: [id number] - TSH Result Comment: Chol esterol level, Desirable <200 mg/dL Borderline high cholesterol 200-239 mg/dL High cholesterol >=240 mg/dL Recommendations of the NCEP Adult Treatment Panel for the following risk-cutoff thresholds for the [place] population. Performed By: #### L 500.4050, L501.9520, L500.4100, L100.0100 #### [facility] [address] [place], [address] Cholesterol in HDL [Mass/Vol] 53 mg/dL Normal [facility] Comment on above: Order Comment: Order Date: 05/26/24 Order Info: 0786- - CMP Order Info: [id number] - LIPID Order Info: [id number] - TSH Result Comment: Priya onal Cholesterol Education Program (NCEP) guidelines: <40 mg/dL: Low HDL-cholesterol (major risk factor for CHD) >= 60 mg/dL: High HDL-cholesterol (negative risk factor for CHD) HDL-cholesterol is affected by a number of factors, e.g. smoking, exercise, hormones, sex and age. Performed By: #### L 500.4050, L501.9520, L500.4100, L100.0100 #### [facility] [address] [place], [address] Cholesterol in LDL [Mass/Vol] 222 mg/dL Normal [facility] Comment on above: Order Comment: Order Date: 05/26/24 Order Info: 0786-1 - CMP Order Info: [id number] - LIPID Order Info: [id number] - TSH Result Comment: Bord ktsnwd=537-966 mg/dL Higher Tptd=127 mg/dL or greater Performed By: #### L 500.4050, L501.9520, L500.4100, L100.0100 #### [facility] [address] [place], [address] Cholesterol in VLDL [Mass/Vol] 53 mg/dL High 5-40 [facility] Comment on above: Order Comment: Order Date: 05/26/24 Order Info: 0786-1 - CMP Order Info: [id number] - LIPID Order Info: [id number] - TSH Performed By: #### L 500.4050, L501.9520, L500.4100, L100.0100 #### [facility] [address] [place], [address] Triglyceride [Mass/Vol] 265 mg/dL High [facility] Comment on above: Order Comment: Order Date: 05/26/24 Order Info: [id number] - CMP Order Info: [id number] - LIPID Order Info: [id number] - TSH Result Comment: The drugs N-Acetylcysteine and Metamizole may falsely depress this assay. Normal range: <150 mg/dL Borderline High: 150-199 mg/dL High: 200-499 mg/dL Very High: >500 mg/dL Performed By: #### L 500.4050, L501.9520, L500.4100, L100.0100 #### [facility] [address] [place], [address] Lumbar Spine 2 or 3 Viewson 05-26-2024 Lumbar Spine 2 or 3 Views [facility] Imaging Services [address] [place] [address] Lumbar Spine 2 or 3 Views MR#: [id number] Acct: [id number] Name: MANAVOliverioCARMEL M Rep #: [id number] : 1960 F 64 From: Kwaku Alejandro MD PCP: Dr. Pretty Bucio MD Status: REG CLI Study: Lumbar Spine 2 or 3 Views Date of Exam: Exam# [id number] Ordering Dr: Pretty Bucio MD PROCEDURE: LUMBAR SPINE 2 OR 3 VIEWS 05/26/2024 REASON FOR EXAM: NEW PAIN WITH SCIATICA TECHNIQUE: 3 view(s) of the lumbar spine COMPARISON: None FINDINGS: Vertebrae: Pain vertebral body heights without findings. Discs: Advanced multilevel disc space narrowing with endplate osteophytes. Alignment: [id number] lumbar levoscoliosis. Mild leftward subluxation of L3 on L4. Facet arthrosis increases from superior to inferior. RAD/Lumbar Spine 2 or 3 Views IMPRESSION: ADVANCED DEGENERATIVE CHANGES OF THE LUMBAR SPINE. Reading [facility] CC: Dr. Pretty Bucio MD Vrt Mechanic: Signed Normal [facility] Lymphocytes Auto (Unsp spec) [#/Vol]Ordered By: Pretty Bucio on 05-26-2024 Lymphocytes (Bld) [#/Vol] 2.04 10*3/uL 0.83-4.51 [facility] Lymphocytes/100 WBC Auto (Un sp spec)Ordered By: Pretty Bucio on 05-26-2024 Lymphocytes/100 WBC (Bld) 26.8 % 19-41 [facility] MCV (mean corpuscular volume ) determinationOrdered By: Pretty Bucio on 05-26-2024 MCV (RBC) [Entitic vol] 94.5 fL 81-99 [facility] Mean corpuscular hemoglobin (MCH) determinationOrdered By: Pretty Bucio on 05-26-2024 MCH (RBC) [Entitic mass] 31.0 pg 27.0-32.0 [facility] Mean corpuscular hemoglobin concentration (MCHC) determinationOrdered By: Pretty Bucio on 05-26-2024 MCHC (RBC) [Mass/Vol] 32.8 g/dL 32-36 [facility] Mean platelet volume determi nationOrdered By: Pretty Bucio on 05-26-2024 Platelet mean volume (Bld) [Entitic vol] 9.9 fL 6.2-12.0 [facility] Monocyte percentageOrdered B y: Antwanfiorella Christensenke on 05-26-2024 Monocytes/100 WBC (Bld) 5.5 % 0-10 [facility] Neutrophil percentageOrdered By: Pretty Christensenke on 05-26-2024 Neutrophils/100 WBC (Bld) 65.0 % 47-70 [facility] Nucleated red blood cell per centageOrdered By: Antwanfiorella Rupinder on 05-26-2024 Nucleated RBC/100 WBC (Bld) [Ratio] 0 % 0-5 [facility] Platelet countOrdered By: Shae Bucio on 05-26-2024 Platelets (Bld) [#/Vol] 323 10*3/uL 150-450 [facility] Potassium (Unsp spec) [Mass/ Vol]Ordered By: Pretty Bucio on 05-26-2024 Potassium [Moles/Vol] 3.9 mmol/L 3.3-5.1 [facility] Potassium measurement (mass/ volume)Ordered By: Pretty Bucio on 05-26-2024 Potassium (Unsp spec) [Mass/Vol] 3.9 mmol/L 3.3-5.1 [facility] RBC Auto (Bld) [#/Vol]Ordere d By: Pretty Bucio on 05-26-2024 RBC (Bld) [#/Vol] 4.22 10*6/uL 4.2-5.4 [facility] Screening total cholesterol/ high density lipoprotein (HDL) cholesterol ratioOrdered By: Pretty Bucio on 05-26-2024 Cholesterol.total/Cho lesterol in HDL [Mass ratio] 6.14 {ratio} [facility] Serum creatinine measurement (mass/volume)Ordered By: Pretty Bucio on 05-26-2024 Creatinine [Mass/Vol] 1.11 mg/dL 0.70-1.20 [facility] Serum globulin measurementOr dered By: Pretty Bucio on 05-26-2024 Globulin (S) [Mass/Vol] 2.6 g/dL 2.2-4.2 [facility] Serum glucose measurement (m ass/volume)Ordered By: Pretty Bucio on 05-26-2024 Glucose [Mass/Vol] 94 mg/dL 70-99 [facility] Serum or plasma alanine chiu otransferase (ALT) measurementOrdered By: Pretty Bucio on 05-26-2024 ALT [Catalytic activity/Vol] 32 U/L <35 [facility] Serum or plasma albumin julio cesar urement (mass/volume)Ordered By: Pretty Bucio on 05-26-2024 Albumin [Mass/Vol] 4.2 g/dL 3.4-4.8 [facility] Serum or plasma albumin/glob ulin mass ratioOrdered By: Pretty Bucio on 05-26-2024 Albumin/Globulin [Mass ratio] 1.6 {ratio} 0.9-2.4 [facility] Serum or plasma alkaline nini sphatase measurementOrdered By: Pretty Bucio 05-26-2024 ALP [Catalytic activity/Vol] 78 U/L 35-104 [facility] Serum or plasma calcium julio cesar urement (mass/volume)Ordered By: Pretty Bucio 05-26-2024 Calcium [Mass/Vol] 9.6 mg/dL 7.6-11.0 [facility] Serum or plasma cholesterol in HDL measurement (mass/volume)Ordered By: Pretty Bucio on 05-26-2024 Cholesterol in HDL [Mass/Vol] 53 mg/dL >40 [facility] Comment on above: National Cholesterol Education Program (NCEP) guidelines:<40 mg/dL: Low HDL-cholesterol (major risk factor for CHD)>= 60 mg/dL: High HDL-cholesterol (negative risk factor for CHD)HDL-cholesterol is affected by a number of factors, e.g. smoking, exercise, hormones, sex and age. Serum or plasma cholesterol measurement (mass/volume)Ordered By: Pretty Bucio on 05-26-2024 Cholesterol [Mass/Vol] 328 mg/dL High <201 [facility] Comment on above: Cholesterol level, D esirable <200 mg/dLBorderline high cholesterol 200-239 mg/dLHigh cholesterol >=240 mg/dLRecommendations of the NCEP Adult Treatment Panel for the following risk-cutoff thresholds for the [place] population. Serum or plasma urea nitroge n measurement (mass/volume)Ordered By: Pretty Bucio on 05-26-2024 Urea nitrogen [Mass/Vol] 13 mg/dL 4-19 [facility] Sodium levelOrdered By: Antwan Bucio on 05-26-2024 Sodium [Moles/Vol] 141 mmol/L 133-145 [facility] TSH DL <= 0.005 mIU/L QnOrde red By: Pretty Bucio on 05-26-2024 Thyroid Stimulating Hormone (TSH) 1.430 uIU/mL 0.300-4.20 0 [facility] TSH Qn 1.430 uIU/mL 0.300-4.20 0 [facility] Thyroid Stim Hormone (TSH)on 05-26-2024 TSH 1.430 uIU/mL Normal 0.300-4.20 0 [facility] Comment on above: Order Comment: Order Date: 05/26/24 Order Info: [id number] - CMP Order Info: [id number] - LIPID Order Info: [id number] - TSH Performed By: #### L 500.4050, L501.9520, L500.4100, L100.0100 #### [facility] [address] [place], [place] [address], [place], [address] Total proteinOrdered By: Mariela ashley Rupinder on 05-26-2024 Protein [Mass/Vol] 6.8 g/dL 5.9-8.4 [facility] Triglycerides measurementOrd ered By: Pretty Bucio on 05-26-2024 Triglyceride [Mass/Vol] 265 mg/dL High <199 [facility] Comment on above: The drugs N-Acetylcy steine and Metamizole may falsely depress this assay. Normal range: <150 mg/dLBorderline High: 150-199 mg/dLHigh: 200-499 mg/dLVery High: >500 mg/dL Vitamin D, 25-hydroxyOrdered By: Pretty Bucio on 05-26-2024 Vitamin D 25-Hydroxy 30.0 ng/mL 30-100 [facility] Comment on above: Vitamin D StatusDefi ciency: <20 ng/mL (50nmol/L)Insufficiency: 20-30 ng/mL (50-75 nmol/L)Sufficiency: 30-100 ng/mL (75-250 nmol/L)Toxicity: >100 ng/mL (>250 nmol/L) Vitamin D,25 Hydroxyon 05-26 Vitamin D 25-OH 30.0 ng/mL Normal 30-100 [facility] Comment on above: Order Comment: Order Date: 05/26/24 Order Info: [id number] - CMP Order Info: [id number] - LIPID Order Info: [id number] - TSH Result Comment: Diana min D Status Deficiency: <20 ng/mL (50nmol/L) Insufficiency: 20-30 ng/mL (50-75 nmol/L) Sufficiency: 30-100 ng/mL (75-250 nmol/L) Toxicity: >100 ng/mL (>250 nmol/L) Performed By: #### L 500.4050, L501.9520, L500.4100, L100.0100 #### [facility] [address] [place], [address] White blood cell (WBC) count Ordered By: Pretty Bucio on 05-26-2024 WBC (Bld) [#/Vol] 7.6 10*3/uL 4.4-11.0 [facility] Miscellaneous Lab Procedureo n 01-08-2024 [facility] LAB TEST Normal [facility] Comment on above: Order Comment: Order Date: 05/26/24 Order Info: [id number] - CMP Order Info: [id number] - LIPID Order Info: [id number] - TSH Result Comment: STOO L CULTURE Salmonella/Shigella Screen Final Report Result 1 NO Salmonella or Shigella recovered. Campylobacter Culture Final Report Result 1 NO Campylobacter species isolated. E. coli Shiga Toxin EIA NEGATIVE TESTING PERFORMED AT [facility]. ORIGINAL REPORT ON FILE IN LAB CONTAINS ADDITIONAL TEST SITE INFORMATION. Performed By: #### L 500.4050, L501.9520, L500.4100, L100.0100 #### [facility] [address] [place], [address] Ova and Parasites 8623on OP OVA AND PARASITES EX AM, ROUTINE These results were obtained using wet preparation(s) and trichrome stained smear. This test does not include testing for Crytosporidium parvum, Cyclospora, or Microsporidia. One negative specimen does not rule out the possibility of a parasitic infection. _ TESTING PERFORMED AT [facility]. ORIGINAL REPORT ON FILE IN LAB CONTAINS ADDITIONAL TEST SITE INFORMATION. _ Ova/Parasite Exam NO OVA, CYSTS, OR PARASITES FOUND. Normal [facility] Comment on above: Performed By: #### L 500.4050, L501.9520, L500.4100, L100.0100 #### [facility] [address] [place], [address] CDIFF (PCR)on 01-01-2024 CDIFF STOOL Pending 027 027 [id number] Presumptive Negative *for epidemiolologic???use C. Diff PCR Negative- No toxigenic C. Diff Detected Normal [facility] Comment on above: Performed By: #### L 500.4050, L501.9520, L500.4100, L100.0100 #### [facility] [address] [place], [address] Stool Lactoferrin/WBCon 12-11 WBCST STOOL Normal Reference Range = Negative Fecal WBC Lactoferrin A Positive: Fecal WBC Lactoferrin present A Normal [facility] Comment on above: Performed By: #### L 500.4050, L501.9520, L500.4100, L100.0100 #### [facility] [address] [place], [address] Stool Occult Blood iFOBon STOB Negative Normal [facility] Comment on above: Performed By: #### L 500.4050, L501.9520, L500.4100, L100.0100 #### [facility] [address] [place], [address] Amylaseon 12-31-2023 SIVAKUMAR 33 U/L Normal 25-115 [facility] Comment on above: Performed By: #### L 500.4050, L501.9520, L500.4100, L100.0100 #### [facility] [address] [place], [address] CBC W/Diff, Automatedon 12-11 Absolute Lymph 2.10 X10 3/uL Normal 0.83-4.51 [facility] Comment on above: Performed By: #### L 500.4050, L501.9520, L500.4100, L100.0100 #### [facility] [address] [place], [address] Absolute Neut 4.4 X10 3/uL Normal 2.0-7.7 [facility] Comment on above: Performed By: #### L 500.4050, L501.9520, L500.4100, L100.0100 #### [facility] [address] [place], [address] Basophils/100 WBC (Bld) 0.6 % Normal 0-1 [facility] Comment on above: Performed By: #### L 500.4050, L501.9520, L500.4100, L100.0100 #### [facility] [address] [place], [address] Eosinophils/100 WBC (Bld) 1.7 % Normal 0-5 [facility] Comment on above: Performed By: #### L 500.4050, L501.9520, L500.4100, L100.0100 #### [facility] [address] [place], [address] Erythrocyte distribution width (RBC) [Ratio] 12.1 % Normal 11.6-14.6 [facility] Comment on above: Performed By: #### L 500.4050, L501.9520, L500.4100, L100.0100 #### [facility] [address] [place], [address] Hematocrit (Bld) [Volume fraction] 40.3 % Normal 37-47 [facility] Comment on above: Performed By: #### L 500.4050, L501.9520, L500.4100, L100.0100 #### [facility] [address] [place], [address] Hemoglobin (Bld) [Mass/Vol] 13.5 g/dL Normal 12.0-15.0 [facility] Comment on above: Performed By: #### L 500.4050, L501.9520, L500.4100, L100.0100 #### [facility] [address] [place], [address] IG% 0.300 Normal 0.0-0.9 [facility] Comment on above: Result Comment: IG% - Immature Granulocytes (promyelocytes, myelocytes and metamyelocytes) > 1% indicates that a LEFT SHIFT is Present. Performed By: #### L 500.4050, L501.9520, L500.4100, L100.0100 #### [facility] [address] [place], [address] Lymphocytes/100 WBC (Bld) 29.6 % Normal 19-41 [facility] Comment on above: Performed By: #### L 500.4050, L501.9520, L500.4100, L100.0100 #### [facility] [address] [place], [address] MCH (RBC) [Entitic mass] 31.5 pg Normal 27.0-32.0 [facility] Comment on above: Performed By: #### L 500.4050, L501.9520, L500.4100, L100.0100 #### [facility] [address] [place], [address] MCHC (RBC) [Mass/Vol] 33.5 g/dL Normal 32-36 [facility] Comment on above: Performed By: #### L 500.4050, L501.9520, L500.4100, L100.0100 #### [facility] [address] [place], [address] MCV (RBC) [Entitic vol] 93.9 fL Normal 81-99 [facility] Comment on above: Performed By: #### L 500.4050, L501.9520, L500.4100, L100.0100 #### [facility] [address] [place], [address] Monocytes/100 WBC (Bld) 5.6 % Normal 0-10 [facility] Comment on above: Performed By: #### L 500.4050, L501.9520, L500.4100, L100.0100 #### [facility] [address] [place], [address] Neutrophils/100 WBC (Bld) 62.2 % Normal 47-70 [facility] Comment on above: Performed By: #### L 500.4050, L501.9520, L500.4100, L100.0100 #### [facility] [address] [place], [address] Nucleated RBC (Bld) [#/Vol] 0 10*3/uL Normal 0-5 [facility] Comment on above: Performed By: #### L 500.4050, L501.9520, L500.4100, L100.0100 #### [facility] [address] [place], [address] Platelet mean volume (Bld) [Entitic vol] 9.3 fL Normal 6.2-12.0 [facility] Comment on above: Performed By: #### L 500.4050, L501.9520, L500.4100, L100.0100 #### [facility] [address] [place], [address] Platelets (Bld) [#/Vol] 315 10*3/uL Normal 150-450 [facility] Comment on above: Performed By: #### L 500.4050, L501.9520, L500.4100, L100.0100 #### [facility] [address] [place], [address] RBC (Bld) [#/Vol] 4.29 10*6/uL Normal 4.2-5.4 [facility] Comment on above: Performed By: #### L 500.4050, L501.9520, L500.4100, L100.0100 #### [facility] [address] [place], [address] RDW SD 41.9 fl Normal 35.1-43.9 [facility] Comment on above: Performed By: #### L 500.4050, L501.9520, L500.4100, L100.0100 #### [facility] [address] [place], [address] WBC (Bld) [#/Vol] 7.1 10*3/uL Normal 4.4-11.0 [facility] Comment on above: Performed By: #### L 500.4050, L501.9520, L500.4100, L100.0100 #### [facility] [address] [place], [address] Comprehensive Metabolic Prof ilon 12-31-2023 Albumin [Mass/Vol] 3.4 g/dL Normal 3.2-5.0 [facility] Comment on above: Performed By: #### L 500.4050, L501.9520, L500.4100, L100.0100 #### [facility] [address] [place], [address] Albumin/Globulin [Mass ratio] 1.0 {ratio} Normal 0.9-2.4 [facility] Comment on above: Performed By: #### L 500.4050, L501.9520, L500.4100, L100.0100 #### [facility] [address] [place], [address] ALK P 78 U/L Normal 45-117 [facility] Comment on above: Performed By: #### L 500.4050, L501.9520, L500.4100, L100.0100 #### [facility] [address] [place], [address] ALT [Catalytic activity/Vol] 25 U/L Normal 13-56 [facility] Comment on above: Performed By: #### L 500.4050, L501.9520, L500.4100, L100.0100 #### [facility] [address] [place], [address] AST [Catalytic activity/Vol] 17 U/L Normal 15-37 [facility] Comment on above: Performed By: #### L 500.4050, L501.9520, L500.4100, L100.0100 #### [facility] [address] [place], [address] Bilirubin [Mass/Vol] 0.40 mg/dL Normal 0.20-1.00 [facility] Comment on above: Result Comment: For patients on eltrombopag therapy, use of Dimension Morrill TBIL is not recommended. Performed By: #### L 500.4050, L501.9520, L500.4100, L100.0100 #### [facility] [address] [place], [address] BUN/CRE 10.1 RATIO Normal 10-20 [facility] Comment on above: Performed By: #### L 500.4050, L501.9520, L500.4100, L100.0100 #### [facility] [address] [place], [address] CA,Total 9.1 mg/dL Normal 8.5-10.1 [facility] Comment on above: Performed By: #### L 500.4050, L501.9520, L500.4100, L100.0100 #### [facility] [address] [place], [address] Chloride [Moles/Vol] 106 mmol/L Normal 98-107 [facility] Comment on above: Performed By: #### L 500.4050, L501.9520, L500.4100, L100.0100 #### [facility] [address] [place], [address] CO2 [Moles/Vol] 27.0 mmol/L Normal 21.0-32.0 [facility] Comment on above: Performed By: #### L 500.4050, L501.9520, L500.4100, L100.0100 #### [facility] [address] [place], [address] Creatinine [Mass/Vol] 0.99 mg/dL Normal 0.55-1.02 [facility] Comment on above: Result Comment: The validity of the calculated GFR GFRAA in patients over 70 years has not been determined. Clinical correlation is essential. Performed By: #### L 500.4050, L501.9520, L500.4100, L100.0100 #### [facility] [address] [place], [address] EST GFR - AA 73 mL/min Normal >60 [facility] Comment on above: Result Comment: Afri can [place] GFR Calc Performed By: #### L 500.4050, L501.9520, L500.4100, L100.0100 #### [facility] [address] [place], [address] GAP 7 Normal 5-15 [facility] Comment on above: Performed By: #### L 500.4050, L501.9520, L500.4100, L100.0100 #### [facility] [address] [place], [address] GFR/1.73 sq M.predicted among non-blacks MDRD (S/P/Bld) [Vol rate/Area] 60 mL/min/{1.73_m2} Normal >60 [facility] Comment on above: Result Comment: Non- GFR Calc Performed By: #### L 500.4050, L501.9520, L500.4100, L100.0100 #### [facility] [address] [place], [address] Globulin (S) [Mass/Vol] 3.4 g/dL Normal 2.2-4.2 [facility] Comment on above: Performed By: #### L 500.4050, L501.9520, L500.4100, L100.0100 #### [facility] [address] [place], [address] Glucose [Mass/Vol] 107 mg/dL High 74-106 [facility] Comment on above: Result Comment: Fast ing Glucose result from 100 to 125 mg/dL suggests IMPAIRED HOMEOSTASIS per A.D.A. criteria. Performed By: #### L 500.4050, L501.9520, L500.4100, L100.0100 #### [place] [facility] [address] [place], [address] Potassium [Moles/Vol] 3.9 mmol/L Normal 3.5-5.1 [facility] Comment on above: Performed By: #### L 500.4050, L501.9520, L500.4100, L100.0100 #### [facility] [address] [place], [address] Sodium [Moles/Vol] 139 mmol/L Normal 136-145 [facility] Comment on above: Performed By: #### L 500.4050, L501.9520, L500.4100, L100.0100 #### [facility] [address] [place], [address] T PROT 6.8 g/dL Normal 6.4-8.2 [facility] Comment on above: Performed By: #### L 500.4050, L501.9520, L500.4100, L100.0100 #### [facility] [address] [place], [address] Urea nitrogen [Mass/Vol] 10 mg/dL Normal 7-18 [facility] Comment on above: Performed By: #### L 500.4050, L501.9520, L500.4100, L100.0100 #### [facility] [address] [place], [address] Erythrocyte Sed Rateon 12-30 SED RATE 5 mm/hr Normal 0-30 [facility] Comment on above: Performed By: #### L 500.4050, L501.9520, L500.4100, L100.0100 #### [facility] [address] [place], [address] Lipaseon 12-31-2023 Lipase [Catalytic activity/Vol] 31 U/L Normal 13-75 [facility] Comment on above: Result Comment: Plea se note: LIPASE revised reference range effective 22. New Lipase methodology. Expected to produce lower values than the previous assay method. NEW Reference Range: 13 - 75 U/L Performed By: #### L 500.4050, L501.9520, L500.4100, L100.0100 #### [facility] [address] [place], [address] Magnesiumon 12-31-2023 Magnesium [Mass/Vol] 2.0 mg/dL Normal 1.6-2.6 [facility] Comment on above: Performed By: #### L 500.4050, L501.9520, L500.4100, L100.0100 #### [facility] [address] [place], [address] Vitamin D,25 Hydroxyon 08-12 Vitamin D 25-OH 18.4 ng/mL Normal [facility] Comment on above: Order Comment: Order Date: 08/11/23 Order Info: [id number] - VITD25 Result Comment: Diana min D 25(OH) Status Range Deficiency <20 ng/mL (50nmol/L) Insufficiency 20 - 30 ng/mL (50 - 75 nmol/L) Sufficiency 30 - 100 ng/mL (75 - 250 nmol/L) Toxicity >100 ng/mL (>250 nmol/L) Performed By: #### L 500.4050, L501.9520, L100.0100, L500.4100, L506.1000 #### [facility] [address] [place], [address] CBC W/Diff, Automatedon 0 Absolute Lymph 2.03 X10 3/uL Normal 0.83-4.51 [facility] Comment on above: Order Comment: Order Date: 08/11/23 Order Info: [id number] - CBCD Performed By: #### L 500.4050, L501.9520, L100.0100, L500.4100, L506.1000 #### [facility] [address] [place], [address] Absolute Neut 3.0 X10 3/uL Normal 2.0-7.7 [facility] Comment on above: Order Comment: Order Date: 08/11/23 Order Info: [id number] - CBCD Performed By: #### L 500.4050, L501.9520, L100.0100, L500.4100, L506.1000 #### [facility] [address] [place], [address] Basophils/100 WBC (Bld) 0.7 % Normal 0-1 [facility] Comment on above: Order Comment: Order Date: 08/11/23 Order Info: [id number] - CBCD Performed By: #### L 500.4050, L501.9520, L100.0100, L500.4100, L506.1000 #### [facility] [address] [place], [address] Eosinophils/100 WBC (Bld) 3.5 % Normal 0-5 [facility] Comment on above: Order Comment: Order Date: 08/11/23 Order Info: [id number] - CBCD Performed By: #### L 500.4050, L501.9520, L100.0100, L500.4100, L506.1000 #### [facility] [address] [place], [address] Erythrocyte distribution width (RBC) [Ratio] 12.2 % Normal 11.6-14.6 [facility] Comment on above: Order Comment: Order Date: 08/11/23 Order Info: [id number] - CBCD Performed By: #### L 500.4050, L501.9520, L100.0100, L500.4100, L506.1000 #### [facility] [address] [place], [address] Hematocrit (Bld) [Volume fraction] 41.3 % Normal 37-47 [facility] Comment on above: Order Comment: Order Date: 08/11/23 Order Info: [id number] - CBCD Performed By: #### L 500.4050, L501.9520, L100.0100, L500.4100, L506.1000 #### [facility] [address] [place], [address] Hemoglobin (Bld) [Mass/Vol] 13.4 g/dL Normal 12.0-15.0 [facility] Comment on above: Order Comment: Order Date: 08/11/23 Order Info: [id number] - CBCD Performed By: #### L 500.4050, L501.9520, L100.0100, L500.4100, L506.1000 #### [facility] [address] [place], [address] IG% 0.300 Normal 0.0-0.9 [facility] Comment on above: Order Comment: Order Date: 08/11/23 Order Info: [id number] - CBCD Result Comment: IG% - Immature Granulocytes (promyelocytes, myelocytes and metamyelocytes) > 1% indicates that a LEFT SHIFT is Present. Performed By: #### L 500.4050, L501.9520, L100.0100, L500.4100, L506.1000 #### [facility] [address] [place], [address] Lymphocytes/100 WBC (Bld) 35.2 % Normal 19-41 [facility] Comment on above: Order Comment: Order Date: 08/11/23 Order Info: [id number] - CBCD Performed By: #### L 500.4050, L501.9520, L100.0100, L500.4100, L506.1000 #### [facility] [address] [place], [address] MCH (RBC) [Entitic mass] 31.0 pg Normal 27.0-32.0 [facility] Comment on above: Order Comment: Order Date: 08/11/23 Order Info: 0184-1 - CBCD Performed By: #### L 500.4050, L501.9520, L100.0100, L500.4100, L506.1000 #### [facility] [address] [place], [address] MCHC (RBC) [Mass/Vol] 32.4 g/dL Normal 32-36 [facility] Comment on above: Order Comment: Order Date: 08/11/23 Order Info: 0184-1 - CBCD Performed By: #### L 500.4050, L501.9520, L100.0100, L500.4100, L506.1000 #### [facility] [address] [place], [address] MCV (RBC) [Entitic vol] 95.6 fL Normal 81-99 [facility] Comment on above: Order Comment: Order Date: 08/11/23 Order Info: 0184-1 - CBCD Performed By: #### L 500.4050, L501.9520, L100.0100, L500.4100, L506.1000 #### [facility] [address] [place], [address] Monocytes/100 WBC (Bld) 8.0 % Normal 0-10 [facility] Comment on above: Order Comment: Order Date: 08/11/23 Order Info: 0184-1 - CBCD Performed By: #### L 500.4050, L501.9520, L100.0100, L500.4100, L506.1000 #### [facility] [address] [place], [address] Neutrophils/100 WBC (Bld) 52.3 % Normal 47-70 [facility] Comment on above: Order Comment: Order Date: 08/11/23 Order Info: 0184-1 - CBCD Performed By: #### L 500.4050, L501.9520, L100.0100, L500.4100, L506.1000 #### [facility] [address] [place], [address] Nucleated RBC (Bld) [#/Vol] 0 10*3/uL Normal 0-5 [facility] Comment on above: Order Comment: Order Date: 08/11/23 Order Info: 0184-1 - CBCD Performed By: #### L 500.4050, L501.9520, L100.0100, L500.4100, L506.1000 #### [facility] [address] [place], [address] Platelet mean volume (Bld) [Entitic vol] 9.7 fL Normal 6.2-12.0 [facility] Comment on above: Order Comment: Order Date: 08/11/23 Order Info: 0184-1 - CBCD Performed By: #### L 500.4050, L501.9520, L100.0100, L500.4100, L506.1000 #### [facility] [address] [place], [address] Platelets (Bld) [#/Vol] 323 10*3/uL Normal 150-450 [facility] Comment on above: Order Comment: Order Date: 08/11/23 Order Info: 0184- - CBCD Performed By: #### L 500.4050, L501.9520, L100.0100, L500.4100, L506.1000 #### [facility] [address] [place], [address] RBC (Bld) [#/Vol] 4.32 10*6/uL Normal 4.2-5.4 [facility] Comment on above: Order Comment: Order Date: 08/11/23 Order Info: 0184-1 - CBCD Performed By: #### L 500.4050, L501.9520, L100.0100, L500.4100, L506.1000 #### [facility] [address] [place], [address] RDW SD 42.3 fl Normal 35.1-43.9 [facility] Comment on above: Order Comment: Order Date: 08/11/23 Order Info: 0184-1 - CBCD Performed By: #### L 500.4050, L501.9520, L100.0100, L500.4100, L506.1000 #### [facility] [address] [place], [address] WBC (Bld) [#/Vol] 5.8 10*3/uL Normal 4.4-11.0 [facility] Comment on above: Order Comment: Order Date: 08/11/23 Order Info: 0184-1 - CBCD Performed By: #### L 500.4050, L501.9520, L100.0100, L500.4100, L506.1000 #### [facility] [address] [place], [address] Comprehensive Metabolic Prof ilon 08-11-2023 Albumin [Mass/Vol] 3.4 g/dL Normal 3.2-5.0 [facility] Comment on above: Order Comment: Order Date: 08/11/23 Order Info: [id number] - CMP Order Info: [id number] - LIPID Order Info: 3016-3 - TSH Performed By: #### L 500.4050, L501.9520, L100.0100, L500.4100, L506.1000 #### [facility] [address] [place], [address] Albumin/Globulin [Mass ratio] 1.0 {ratio} Normal 0.9-2.4 [facility] Comment on above: Order Comment: Order Date: 08/11/23 Order Info: 0786-1 - CMP Order Info: [id number] - LIPID Order Info: 3016-3 - TSH Performed By: #### L 500.4050, L501.9520, L100.0100, L500.4100, L506.1000 #### [facility] [address] [place], [address] ALK P 75 U/L Normal 45-117 [facility] Comment on above: Order Comment: Order Date: 08/11/23 Order Info: 07- - CMP Order Info: [id number] - LIPID Order Info: 3 - TSH Performed By: #### L 500.4050, L501.9520, L100.0100, L500.4100, L506.1000 #### [facility] [address] [place], [address] ALT [Catalytic activity/Vol] 22 U/L Normal 13-56 [facility] Comment on above: Order Comment: Order Date: 08/11/23 Order Info: 785- - CMP Order Info: [id number] - LIPID Order Info: [id number] - TSH Performed By: #### L 500.4050, L501.9520, L100.0100, L500.4100, L506.1000 #### [facility] [address] [place], [address] AST [Catalytic activity/Vol] 23 U/L Normal 15-37 [facility] Comment on above: Order Comment: Order Date: 08/11/23 Order Info: 785-02 - CMP Order Info: [id number] - LIPID Order Info: [id number] - TSH Performed By: #### L 500.4050, L501.9520, L100.0100, L500.4100, L506.1000 #### [facility] [address] [place], [address] Bilirubin [Mass/Vol] 0.30 mg/dL Normal 0.20-1.00 [facility] Comment on above: Order Comment: Order Date: 08/11/23 Order Info: 0786- - CMP Order Info: [id number] - LIPID Order Info: 3 - TSH Result Comment: For patients on eltrombopag therapy, use of Dimension Morrill TBIL is not recommended. Performed By: #### L 500.4050, L501.9520, L100.0100, L500.4100, L506.1000 #### [facility] [address] [place], [address] BUN/CRE 5.5 RATIO Low 10-20 [facility] Comment on above: Order Comment: Order Date: 08/11/23 Order Info: 785- - CMP Order Info: [id number] - LIPID Order Info: [id number] - TSH Performed By: #### L 500.4050, L501.9520, L100.0100, L500.4100, L506.1000 #### [facility] [address] [place], [address] CA,Total 9.0 mg/dL Normal 8.5-10.1 [facility] Comment on above: Order Comment: Order Date: 08/11/23 Order Info: [id number] - CMP Order Info: - LIPID Order Info: [id number] - TSH Performed By: #### L 500.4050, L501.9520, L100.0100, L500.4100, L506.1000 #### [facility] [address] [place], [address] Chloride [Moles/Vol] 108 mmol/L High 98-107 [facility] Comment on above: Order Comment: Order Date: 08/11/23 Order Info: 07 - CMP Order Info: [id number] - LIPID Order Info: [id number] - TSH Performed By: #### L 500.4050, L501.9520, L100.0100, L500.4100, L506.1000 #### [facility] [address] [place], [address] CO2 [Moles/Vol] 25.0 mmol/L Normal 21.0-32.0 [facility] Comment on above: Order Comment: Order Date: 08/11/23 Order Info: 0786- - CMP Order Info: [id number] - LIPID Order Info: [id number] - TSH Performed By: #### L 500.4050, L501.9520, L100.0100, L500.4100, L506.1000 #### [facility] [address] [place], [address] Creatinine [Mass/Vol] 1.10 mg/dL High 0.55-1.02 [facility] Comment on above: Order Comment: Order Date: 08/11/23 Order Info: 0786-1 - CMP Order Info: [id number] - LIPID Order Info: 301-3 - TSH Result Comment: The validity of the calculated GFR GFRAA in patients over 70 years has not been determined. Clinical correlation is essential. Performed By: #### L 500.4050, L501.9520, L100.0100, L500.4100, L506.1000 #### [facility] [address] [place], [address] EST GFR - AA 65 mL/min Normal >60 [facility] Comment on above: Order Comment: Order Date: 08/11/23 Order Info: 0786- - CMP Order Info: [id number] - LIPID Order Info: [id number] - TSH Result Comment: Afri can Algerian GFR Calc Performed By: #### L 500.4050, L501.9520, L100.0100, L500.4100, L506.1000 #### [facility] [address] [place], [address] GAP 9 Normal 5-15 [facility] Comment on above: Order Comment: Order Date: 08/11/23 Order Info: 0786-1 - CMP Order Info: [id number] - LIPID Order Info: [id number] - TSH Performed By: #### L 500.4050, L501.9520, L100.0100, L500.4100, L506.1000 #### [facility] [address] [place], [address] GFR/1.73 sq M.predicted among non-blacks MDRD (S/P/Bld) [Vol rate/Area] 53 mL/min/{1.73_m2} Low >60 [facility] Comment on above: Order Comment: Order Date: 08/11/23 Order Info: [id number] - CMP Order Info: - LIPID Order Info: [id number] - TSH Result Comment: Non- GFR Calc Performed By: #### L 500.4050, L501.9520, L100.0100, L500.4100, L506.1000 #### [facility] [address] [place], [address] Globulin (S) [Mass/Vol] 3.4 g/dL Normal 2.2-4.2 [facility] Comment on above: Order Comment: Order Date: 08/11/23 Order Info: 785-02 - CMP Order Info: - LIPID Order Info: [id number] - TSH Performed By: #### L 500.4050, L501.9520, L100.0100, L500.4100, L506.1000 #### [facility] [address] [place], [address] Glucose [Mass/Vol] 86 mg/dL Normal 74-106 [facility] Comment on above: Order Comment: Order Date: 08/11/23 Order Info: [id number] - CMP Order Info: - LIPID Order Info: [id number] - TSH Performed By: #### L 500.4050, L501.9520, L100.0100, L500.4100, L506.1000 #### [facility] [address] [place], [address] Potassium [Moles/Vol] 4.2 mmol/L Normal 3.5-5.1 [facility] Comment on above: Order Comment: Order Date: 08/11/23 Order Info: 785-02 - CMP Order Info: [id number] - LIPID Order Info: [id number] - TSH Performed By: #### L 500.4050, L501.9520, L100.0100, L500.4100, L506.1000 #### [facility] [address] [place], [address] Sodium [Moles/Vol] 142 mmol/L Normal 136-145 [facility] Comment on above: Order Comment: Order Date: 08/11/23 Order Info: 785-02 - CMP Order Info: [id number] - LIPID Order Info: [id number] - TSH Performed By: #### L 500.4050, L501.9520, L100.0100, L500.4100, L506.1000 #### [facility] [address] [place], [address] T PROT 6.8 g/dL Normal 6.4-8.2 [facility] Comment on above: Order Comment: Order Date: 08/11/23 Order Info: 785-02 - CMP Order Info: [id number] - LIPID Order Info: [id number] - TSH Performed By: #### L 500.4050, L501.9520, L100.0100, L500.4100, L506.1000 #### [facility] [address] [place], [address] Urea nitrogen [Mass/Vol] 6 mg/dL Low 7-18 [facility] Comment on above: Order Comment: Order Date: 08/11/23 Order Info: 785-02 - CMP Order Info: [id number] - LIPID Order Info: [id number] - TSH Performed By: #### L 500.4050, L501.9520, L100.0100, L500.4100, L506.1000 #### [facility] [address] [place], [address] Lipid Profileon 08-11-2023 Cholesterol [Mass/Vol] 344 mg/dL High 200 [facility] Comment on above: Order Comment: Order Date: 08/11/23 Order Info: 07 - CMP Order Info: [id number] - LIPID Order Info: [id number] - TSH Result Comment: <200 mg/dL Desirable 200-240 mg/dL Borderline >240 mg/dL High Risk Performed By: #### L 500.4050, L501.9520, L100.0100, L500.4100, L506.1000 #### [facility] [address] [place], [address] Cholesterol in HDL [Mass/Vol] 56 mg/dL Normal [facility] Comment on above: Order Comment: Order Date: 08/11/23 Order Info: 0786-1 - CMP Order Info: [id number] - LIPID Order Info: [id number] - TSH Result Comment: The drugs N-Acetylcysteine and Metamizole may falsely depress this assay. Reference Range HDL <40 mg/dL Low HDL Cholesterol HDL >or= 60 mg/dL High HDL Cholesterol Performed By: #### L 500.4050, L501.9520, L100.0100, L500.4100, L506.1000 #### [facility] [address] [place], [address] Cholesterol in LDL [Mass/Vol] 223 mg/dL High 0-130 [facility] Comment on above: Order Comment: Order Date: 08/11/23 Order Info: 0786- - CMP Order Info: [id number] - LIPID Order Info: [id number] - TSH Performed By: #### L 500.4050, L501.9520, L100.0100, L500.4100, L506.1000 #### [facility] [address] [place], [address] Cholesterol in VLDL [Mass/Vol] 65 mg/dL High 5-40 [facility] Comment on above: Order Comment: Order Date: 08/11/23 Order Info: 0786-1 - CMP Order Info: [id number] - LIPID Order Info: [id number] - TSH Performed By: #### L 500.4050, L501.9520, L100.0100, L500.4100, L506.1000 #### [facility] [address] [place], [address] Triglyceride [Mass/Vol] 323 mg/dL High [facility] Comment on above: Order Comment: Order Date: 08/11/23 Order Info: 0786-1 - CMP Order Info: [id number] - LIPID Order Info: [id number] - TSH Result Comment: The drugs N-Acetylcysteine and Metamizole may falsely depress this assay. Serum Triglycerides Reference Interval Normal <150 mg/dL Borderline high 150 - 199 mg/dL High 200 - 499 mg/dL Very High > or = 500 mg/dL Performed By: #### L 500.4050, L501.9520, L100.0100, L500.4100, L506.1000 #### [facility] [address] [place], [place], [address] Thyroid Stim Hormone (TSH)on 08-11-2023 TSH 1.97 uIU/mL Normal 0.358-3.74 [facility] Comment on above: Order Comment: Order Date: 08/11/23 Order Info: 0786-1 - CMP Order Info: [id number] - LIPID Order Info: [id number] - TSH Performed By: #### L 500.4050, L501.9520, L100.0100, L500.4100, L506.1000 #### [facility] [address] [place], [address] [facility]NPNon [facility]-07-[address] [facility] CARMEL GUILLEN ([id number]) 1960 F Date Time Provider Department 08/07/22 LUISITO BRIZUELA During your visit today, we recorded the following information about you: Leida Mancia 08/07/2022 10:47 AM Addendum Pt calling for CT results from 08/04. Pt states that her symptoms are worse. She can barely walk. Not sure if it is muscular skeletal or if something else is going on. Results still state in process. I reached out to radiology and they are checking on the status of the final results. Leida Lunaes Georgie Calvin RN 08/07/2022 10:55 AM Signed Tried reaching out to patient to schedule follow up appointment with Dr. Brizuela for tomorrow 08/08/[address] images. No answer and unable to leave voicemail message.Georgie Calvin RN Allergies As of Date: 08/07/2022 Noted Allergy Reaction DARVOCET A500 (PROPOXYPHENE N-ROD*05/23/2012 2 - Rash DOXYCYCLINE 05/23/2012 16 - Unknown PROPOXYPHENE 10/03/2003 SULFA (SULFONAMIDE ANTIBIOTICS) 01/29/2010 16 - Unknown Date Reviewed: 08/01/2022 Reviewed by: Princess Jules, RT(R) - Fully Assessed Reason for Visit: Results [95] Prescriptions as of 08/07/2022 - escitalopram oxalate (LEXAPRO) 20 mg tablet Take 20 mg by mouth once daily. - hydrOXYzine HCl (ATARAX) 50 mg tablet Take 50 mg by mouth three times daily as needed. - metoclopramide HCl (REGLAN) 10 mg tablet Take 1 tablet by mouth four times daily as needed (Nausea or Vomiting). - ASPIRIN (ASPIR-81 ORAL) Take 81 mg by mouth once daily. - ibuprofen (MOTRIN) 200 mg tablet Take 200-600 mg by mouth once daily as needed for Pain. - LACTOBACILLUS ACIDOPHILUS (PROBIOTIC ACIDOPHILUS ORAL) Take 2 tablets by mouth once daily. - RABEprazole (ACIPHEX) 20 mg tablet Take 20 mg by mouth once daily. - simvastatin (ZOCOR) 20 mg tablet Take 1 tablet by mouth once daily. - lisinopril (PRINIVIL) 5 mg tablet Take 1 tablet by mouth once daily. 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 Address: [address] [place] [address] Performed By: #### C RET1 #### [facility] [id number] [address] [place] [address] [place] ESTIMATED GLOMERULAR FILTRATION RATE 77 mL/min/1.73m??? Normal >=60 [facility] Comment on above: Order Comment: Speci men Type: BLOOD SPECIMEN Ordering Facility: [facility] Address: [address] [place] [address] Result Comment: Bharti mated Glomerular Filtration Rate (eGFR) is calculated using the 2020 CKD-EPI creatinine equation. This equation utilizes serum creatinine, sex, and age as parameters. The creatinine assay has traceable calibration to isotope dilution-mass spectrometry. Refer to KDIGO guidelines for clinical interpretation. In patients with unstable renal function, e.g. those with acute kidney injury, the eGFR may not accurately reflect actual GFR. Performed By: #### C RET1 #### [facility] [id number] [address] [place] [address] [place] [address] [address] ABD/PEL W IVCONon 023 CT ABD/PEL W IVCON * * *Final Report* * * DATE OF EXAM: Aug 04 2022 3:30PM [facility] 0530 - CT ABD/PEL W IVCON / PROCEDURE REASON: multiple diagnoses * * * * Physician Interpretation * * * * EXAMINATION: CT ABDOMEN AND PELVIS WITH IV CONTRAST CLINICAL HISTORY: Left inguinal pain TECHNIQUE: CT of the abdomen and pelvis was performed using standard technique, scanning from just above the dome of the diaphragm to the symphysis pubis. MQ: CTAP_3 Contrast: IV: 100 ml of Omnipaque 350 Oral: 50 ml of Omni 240 10-25ml diluted with water CT Radiation dose: Integrated Dose-length product (DLP) for this visit = 536 mGy*cm. CT Dose Reduction Employed: Automated exposure control(AEC) and iterative recon COMPARISON: 12/27/2019. And 05/30/2014 CT scans RESULT: Liver: Stable incidental left hepatic lobe cyst. No developing focal hepatic mass. Biliary: No bile duct dilation. Gallbladder is unremarkable. Spleen: No mass. No splenomegaly. Pancreas: No mass or duct dilation. Adrenals: No mass. Kidneys: No suspicious mass or gross obstructive uropathy. GI tract: No dilation or wall thickening. Incidental duodenal diverticulum.. Stable surgical suture in the rectal region. Stable surgical suture in the left upper quadrant. Patulous small bowel in this region is again noted. Stable. No focal wall thickening or obstruction. The appendix appears normal. Lymph nodes: No abdominal or pelvic lymphadenopathy. Mesentery/Peritoneum: No ascites or mass. Retroperitoneum: No mass. Vasculature: - Abdominal aorta and iliac arteries: No aneurysm. - Celiac and SMA: Patent without stenosis. - Portal venous system (SMV, splenic vein, portal vein and branches): Patent. - Hepatic veins: Patent. Pelvis: No mass, ascites or fluid collection. Bones/Soft Tissues: Degenerative change and scoliosis Lower thorax: Minimal atelectasis or infiltrate at the left lung base. Automatic Transmission Mechanic (topogram) images: No additional findings. IMPRESSION: Minimal atelectasis or infiltrate at the left lung base No acute process in the abdomen or pelvis Vrt Mechanic: PSCB Transcribe Date/Time: Aug 07 2022 11:05A Dictated by : ASHLYN VARGAS MD This examination was interpreted and the report reviewed and electronically signed by: ASHLYN VARGAS MD on Aug 07 2022 11:15AM EST [id number] Normal [facility] CNOVon 07-29-2022 CNOV Office Visit (GENSWS ) CARMEL GUILLEN ([id number]) 1960 F Date Time Provider Department 07/29/22 8:15 AM LUISITO BRIZUELA During your visit today, we recorded the following information about you: Temperature Pulse Blood pressure Weight 97.6 degrees 83/minute 126/80 81.7 kg Height 1.664 m Luisito Brizuela III, MD 07/29/2022 9:20 AM Signed HISTORY AND PHYSICAL Carmel Guillen 1960 REFERRING PHYSICIAN: Beto Pressley DO CHIEF COMPLAINT: Consult (Consult possible left inguinal hernia. ) HPI: The patient is a 62 year old female with a complaint of left groin pain. Patient states that she moved into a new house couple months ago and started having some significant pain in the left groin area that has just been persistent she feels that something may be popping in and out. She has had no imaging as of yet. She was seen by her primary care doctor who thought she felt a recurrent hernia. Back in 2007 Dr. Luna had repaired a left inguinal hernia repair laparoscopically with 3D max mesh.. The patient is being seen by me today at the request of Dr. Beto Pressley DO for my opinion and advice regarding Left inguinal hernia (primary encounter diagnosis) Left groin pain. PAST MEDICAL HISTORY Diagnosis Date Calles's esophagus Depression Diverticulitis GERD (gastroesophageal reflux disease) Hemorrhoids Hiatal hernia Inguinal hernia Osteoarthritis of multiple joints PAST SURGICAL HISTORY Procedure Laterality Date DELIVERY ONLY , low cervical COLONOSCOPY 01/2016 lymphocytic colitis COLONOSCOPY 02/01/2015 Dr. Sander Maldonado COLPOSCOPY CERVIX UPPER/ADJACENT VAGINA 07/11/03 Colposcopy EGD 07/28/2016 HYSTERECTOMY HX 08/18 INGUINAL HERNIA REPAIR HX 09/18 lap IVONNE LIH PAST SURGICAL HISTORY OF uterine fibroid PAST SURGICAL HISTORY OF 07/11/[address] Haynes SMALL BOWEL 06/18 lap small bowel resection UNL LAPAR WEDGE RESECTION SIGM COLON 04/19 lap sigmoid resection Current Outpatient Medications Medication Sig escitalopram oxalate (LEXAPRO) 20 mg tablet Take 20 mg by mouth once daily. hydrOXYzine HCl (ATARAX) 50 mg tablet Take 50 mg by mouth three times daily as needed. ibuprofen (MOTRIN) 200 mg tablet Take 200-600 mg by mouth once daily as needed for Pain. iv contrast (will be provided with radiology test) CT ABD/PEL -Inject, intravenously, once for 1 dose.No IV access, insert saline lock prior to the beginning of sedation, infusion, injection of imaging exam. Discontinue saline lock post exam. If Pt. has a central line or IVAD, may access for administration according to line specific nursing protocol. Once exam is complete flush line and de-access according to line specific nursing protocol in the CT contrast administration guidelines link. enteric contrast (will be provided with radiology test) For CT ABD/PEL W IVCON Routine order Administer, As Directed One Time Only, via Oral, Rectal, both Oral and Rectal, Enteric Tube, Stoma or Indwelling Catheter, Enteric Contrast as designated per enteric contrast guidelines metoclopramide HCl (REGLAN) 10 mg tablet Take 1 tablet by mouth four times daily as needed (Nausea or Vomiting). (Patient not taking: Reported on 07/29/2022) ASPIRIN (ASPIR-81 ORAL) Take 81 mg by mouth once daily. (Patient not taking: Reported on 07/29/2022) LACTOBACILLUS ACIDOPHILUS (PROBIOTIC ACIDOPHILUS ORAL) Take 2 tablets by mouth once daily. (Patient not taking: Reported on 07/29/2022) RABEprazole (ACIPHEX) 20 mg tablet Take 20 mg by mouth once daily. (Patient not taking: Reported on 07/29/2022) simvastatin (ZOCOR) 20 mg tablet Take 1 tablet by mouth once daily. (Patient not taking: Reported on 07/29/2022) lisinopril (PRINIVIL) 5 mg tablet Take 1 tablet by mouth once daily. (Patient not taking: Reported on 07/29/2022) No current facility-administered medications for this visit. ALLERGIES: Darvocet A500 [Propoxyphene N-Acetaminophen], Doxycycline, Propoxyphene, and Sulfa (Sulfonamide Antibiotics) PERSONAL HISTORY: Social History Tobacco Use Smoking status: Never Smokeless tobacco: Never Vaping Use Vaping Use: Never used Substance Use Topics Alcohol use: Yes Alcohol/week: 17.5 standard drinks Types: 7 Cans of Beer (12oz) per week Comment: 1 light beer/day (7 beers/day - max) Drug use: No FAMILY HISTORY: FAMILY HISTORY Problem Relation Age of Onset Ischemic Heart Disease Father mi 52 Ischemic Heart Disease Mother mi 50 or 59? Thyroid Mother other (graves) Brother REVIEW OF SYMPTOMS: The review of systems data was entered by the nurse and reviewed by wa Nursing Notes: Vesna Li RN 07/29/2022 8:22 AM Signed REVIEW OF SYSTEMS: General: The patient NOTES fatigue, denies weight loss, NOTES weight gain, denies feeling hot, and denies feelings of cold. Eyes: The (more content not included)... Normal [facility] 36on 03-31-2022 36 Ordering provider: Carmen Sparks Date of last office visit: 03/21/21 Date of next office visit: n/a Patient has moved to [place] and is in process of finding a new PCP closer to her home. Patient is requesting refill until she is established with new physician. Updated/Validated preferred pharmacy: Yes [facility] - [place], [place] Patient instructed to contact the pharmacy prior to picking up the medication: Yes (1) Medication name: escitalopram (LEXAPRO) 20 MG tablet Medication dosage: 20 mg (Miligrams Monthly quantity needed: 30 How many day supply requestin days Medication route: oral (PO) Medication administration time(s): daily If taking medication PRN, reason for taking medication: N/A If this is a controlled substance do you receive this or any other controlled medication from any other doctor or facility: No Date of last refill (see medication tab): 09/06/21 Normal [facility] Office Visit (Urgent Care)on 07-10-2021 Follow-up visit Diagnoses/Problems Assessed Rhus dermatitis (692.6) (L25.5) Orders Rhus dermatitis Start: predniSONE 20 MG Oral Tablet; 2 tablets daily for 4 days and then one tablet daily for 4 days with food Rx By: Bruce Keen; Dispense: 0 Days ; #:12 Tablet; Refill: 0;For: Rhus dermatitis; GALE = N; Sent To: [facility] Patient Discussion/Summary Please see your primary care physician in 7 days. as needed May use Zyrtec or Benadryl by mouth and use Calamine lotion as needed for symptoms of itch. Seek follow-up medical care if symptoms worsen or do not resolve. Chief Complaint Chief Complaints Rash History of Present Illness 61-year-old female who 2 days ago was doing some weeding and subsequently developed an itchy rash involving her face, neck, back, and arms. No difficulty swallowing or breathing. She has had a prior history of poison ze type rashes. Review of systems is otherwise negative for constitutional, ear nose and throat, neck, heart, lungs, and abdomen. Review of Systems Constitutional: as noted in HPI. Active Problems Problems Acute streptococcal pharyngitis (034.0) (J02.0) Sore throat (462) (J02.9) Social History Problems Never smoker Allergies Medication Sulfa Drugs Recorded By: Lita Cruz; 05/01/2017 7:04:21 PM Current Meds Medication NameInstruction DULoxetine HCl - 30 MG Oral Capsule Delayed Release ParticlesTAKE 1 CAPSULE BY MOUTH DAILY Methscopolamine [place] 5 MG Oral TabletTAKE 1 TABLET BY MOUTH TWICE DAILY PARoxetine HCl - 30 MG Oral TabletTAKE 1 TABLET BY MOUTH EVERY DAY RABEprazole Sodium 20 MG Oral Tablet Delayed ReleaseTAKE 1 TABLET BY MOUTH EVERY DAY Vitals Vital Signs Recorded: 10Jul2021 05:42PM Hhzwhohrcol50.3 F Heart Rate63 Xeapzghscud14 Muolkzgc854 Mmhekjplm87 Height5 ft 4 in Fovvdw244 lb 14.22 oz BMI Tcjfrwpohu39.84 kg/m2 BSA Calculated1.68 Tobacco Usec) Screening not indicated PHQ-2 #1. Over the last 2 weeks have you felt down, depressed or hopeless? (If yes, answer PHQ-9 below)Yes PHQ-2 #2. Over the last 2 weeks have you felt little interest or pleasure in doing things? (If yes, answer PHQ-9 below)Yes Fall Screeninga) No falls within the last year O2 Aiflvmfwor88 Pain Scale5 PHQ-9 #1. Little interest or pleasure in doing things1-Several days PHQ-9 #2. Feeling down, depressed, or hopelesS1-Several days PHQ-9 #3. Trouble falling or staying asleep, or sleeping too much0-Not at all PHQ-9 #4. Feeling tired or having little energy0-Not at all PHQ-9 #5. Poor appetite or overeating0-Not at all PHQ-9 #6. Feeling bad about yourself or you are a failure or that you have let yourself or your family down1-Several days PHQ-9 #7. Trouble concentrating on things, such as reading the newspaper or watch television1-Several days PHQ-9 #8. Moving or speaking so slowly that other people could have noticed. Or the opposite-being so fidgety or restless that you have been moving around a lot more than usual1-Several days PHQ-9 #9. Thoughts that you would be better off , or of hurting yourself0-Not at all PHQ-9 Depression SeverityIn Remission (0-4) Physical Exam Patient appears in no apparent distress and is well-hydrated. Vital signs noted. The neck is supple with a normal swallow. Lungs are clear with no wheezing. Examination of the skin of the face and arms reveals clusters of erythematous papules, some in a linear pattern. There is some confluence involving the face. Signatures Electronically signed by : Bruce Keen MD; Jul 10 2021 5:57PM EST (Author) Normal [facility] Tobacco Screening.on 022 Adult depression screening assessment Yes [facility] Work Phone: Fall risk assessment a) No falls within the last year [facility] Work Phone: Tobacco use status CPHS c) Screening not indicated [facility] Work Phone: Tobacco Screening. 1-Several days [facility] Work Phone: Tobacco Screening. 0-Not at all [facility] Work Phone: ALLIED HEALTHon 12-27-2019 [facility] HNO ID: [id number] Author: CORINNE Cota (Ct) Service: Radiology Author Type: Clinical Candy Catcher Type: [facility] Filed: 12/27/2019 7:24 PM Note Text: Radiology Service Progress Note DATE OF SERVICE: December 27, 2019 TIME: 7:24 PM PATIENT IDENTITY VERIFICATION COMPLETED USING TWO (2) STANDARD IDENTIFIERS: Name and Date of confirmed by patient verbally and Name and Date of confirmed by identification band. FALL SCREENING: Has the patient had 2 falls in the last year or 1 fall with injury or currently using an Ambulatory Assistive Device (Walker, Cane, Wheelchair, Crutches, etc.)? Emergency Room Patient: Screened in ED PATIENT GENDER DATA: Male PATIENT RELEVANT IMPLANT DATA REVIEWED: Not Applicable ALLERGIES: Reviewed and unchanged CONTRAST ALLERGY: NO. EXAM: CT -CONTRAST INDUCED NEPHROPATHY RISK FACTORS: Not applicable CREATININE: Creatinine Date Value Ref Range Status 12/27/2019 0.89 0.58 - 0.96 mg/dL Final 08/26/2017 1.01 (H) 0.58 - 0.96 mg/dL Final 08/14/2016 0.95 0.58 - 0.96 mg/dL Final eGFR-All Other Races Date Value Ref Range Status 12/27/2019 >60 . Final Comment: eGFR (Estimated GFR) Units of measure: mL/min/1.73 meters squared eGFR is derived from the reexpressed MDRD Study equation using the following parameters: serum creatinine, age, gender and race. The creatinine assay has been calibrated to be traceable to IDMS. An eGFR <60 mL/min/1.73m2 for >3 months is consistent with chronic kidney disease. Refer to KDOQI guidelines for clinical interpretation. In patients with unstable renal function, e.g. those with acute kidney injury, the eGFR may not accurately reflect actual GFR. eGFR- Date Value Ref Range Status 12/27/2019 >60 Final P.O.C.T. RESULTS: N/A December 27, 2019 TREATMENT: N/A PERIPHERAL IV DATA: Inpatient - refer to [facility] documentation RADIOLOGY DEPARTMENT: CT; Exam(s) Completed: Abdomen/Pelvis SIGNATURE: CORINNE Cota PATIENT NAME: Carmel Guillen DATE: December 27, 2019 TIME: 7:24 PM Normal [facility] APTTon 12-27-2019 aPTT Coag (Bld) [Time] 27.6 s Normal 23.0-32.4 [facility] Comment on above: Result Comment: Unfr actionated Heparin Therapeutic Ranges: Standard Heparin Nomogram: 53 to 78 seconds (anti-Xa level of 0.3 to 0.7 U/ml) Low Dose/ACS Nomogram: 49 to 67 seconds (anti-Xa level of 0.2 to 0.5 U/ml) Stroke Treatment Nomogram: 49 to 67 seconds (anti-Xa level of 0.2 to 0.5 U/ml) Note: The APTT therapeutic range has been determined for the current lot of laboratory APTT reagent in use throughout the [facility]. Performed By: #### P TT, PT #### [facility] [address] [place] [address] CBC and Differentialon 12-26 Abs Baso 0.05 k/uL Normal <0.11 [facility] Comment on above: Performed By: #### L IPA, CMP, CBCDIF #### [facility] [address] [place] [address] Abs Buchanan 0.54 k/uL Normal <0.87 [facility] Comment on above: Performed By: #### L IPA, CMP, CBCDIF #### [facility] [address] [place] [address] Abs Neut 5.01 k/uL Normal 1.45-7.50 [facility] Comment on above: Performed By: #### L IPA, CMP, CBCDIF #### [facility] [address] [place] [address] Absolute nRBC <0.01 Normal <0.01 [facility] Comment on above: Performed By: #### L IPA, CMP, CBCDIF #### [facility] [address] [place] [address] Basophils/100 WBC (Bld) 0.5 % Normal [facility] Comment on above: Performed By: #### L IPA, CMP, CBCDIF #### [facility] [address] [place] [address] DTYPE Auto Diff Normal [facility] Comment on above: Performed By: #### L IPA, CMP, CBCDIF #### [facility] [address] [place] [address] Eosinophils (Bld) [#/Vol] 0.17 10*3/uL Normal <0.46 [facility] Comment on above: Performed By: #### L IPA, CMP, CBCDIF #### [facility] [address] [place] [address] Eosinophils/100 WBC (Bld) 1.9 % Normal [facility] Comment on above: Performed By: #### L IPA, CMP, CBCDIF #### [facility] [address] [place] [address] Erythrocyte distribution width (RBC) [Ratio] 12.0 % Normal 11.5-15.0 [facility] Comment on above: Performed By: #### L IPA, CMP, CBCDIF #### [facility] [address] [place] [address] Hematocrit (Bld) [Volume fraction] 43.7 % Normal 36.0-46.0 [facility] Comment on above: Performed By: #### L IPA, CMP, CBCDIF #### [facility] [address] [place] [address] Hemoglobin (Bld) [Mass/Vol] 14.1 g/dL Normal 11.5-15.5 [facility] Comment on above: Performed By: #### L IPA, CMP, CBCDIF #### [facility] [address] [place] [address] Lymphocytes (Bld) [#/Vol] 3.34 10*3/uL Normal 1.00-4.00 [facility] Comment on above: Performed By: #### L IPA, CMP, CBCDIF #### [facility] [address] [place] [address] Lymphocytes/100 WBC (Bld) 36.7 % Normal [facility] Comment on above: Performed By: #### L IPA, CMP, CBCDIF #### [facility] [address] [place] [address] MCH (RBC) [Entitic mass] 30.7 pG Normal 26.0-34.0 [facility] Comment on above: Performed By: #### L IPA, CMP, CBCDIF #### [facility] [address] [place] [address] MCHC (RBC) [Mass/Vol] 32.3 g/dL Normal 30.5-36.0 [facility] Comment on above: Performed By: #### L IPA, CMP, CBCDIF #### [facility] [address] [place] [address] MCV (RBC) [Entitic vol] 95.2 fL Normal 80.0-100.0 [facility] Comment on above: Performed By: #### L IPA, CMP, CBCDIF #### [facility] [address] [phone] Monocytes/100 WBC (Bld) 5.9 % Normal [facility] Comment on above: Performed By: #### L IPA, CMP, CBCDIF #### [facility] [address] [facility] [phone] Neutrophils/100 WBC (Bld) 55.0 % Normal [facility] Comment on above: Performed By: #### L IPA, CMP, CBCDIF #### [facility] [address] [phone] NRBCs 0.0 /100 WBC Normal 0 [facility] Comment on above: Performed By: #### L IPA, CMP, CBCDIF #### [facility] [address] [phone] Platelet mean volume (Bld) [Entitic vol] 9.4 fL Normal 9.0-12.7 [facility] Comment on above: Performed By: #### L IPA, CMP, CBCDIF #### [facility] [address] [phone] Platelets (Bld) [#/Vol] 391 10*3/uL Normal 150-400 [facility] Comment on above: Performed By: #### L IPA, CMP, CBCDIF #### [facility] [address] [phone] RBC (Bld) [#/Vol] 4.59 10*6/uL Normal 3.90-5.20 [facility] Comment on above: Performed By: #### L IPA, CMP, CBCDIF #### [facility] [address] [facility] [phone] WBC (Bld) [#/Vol] 9.11 10*3/uL Normal 3.70-11.00 [facility] Comment on above: Performed By: #### L IPA, CMP, CBCDIF #### [facility] [address] [phone] CT ABD/PEL W IVCONon 020 CT ABD/PEL W IVCON * * *Final Report* * * DATE OF EXAM: Dec 27 2019 7:23PM [facility] 0530 - CT ABD/PEL W IVCON / PROCEDURE REASON: Abd pain, diverticulitis suspected * * * * Physician Interpretation * * * * EXAMINATION: CT ABDOMEN AND PELVIS WITH IV CONTRAST CLINICAL HISTORY: Abd pain, diverticulitis suspected PAIN HX HYSTER, SIGMOID RESECTION TECHNIQUE: CT of the abdomen and pelvis was performed using standard technique, scanning from just above the dome of the diaphragm to the symphysis pubis. MQ: CTAP_3 Contrast: IV: 150 ml of Omnipaque 300 : ml of CT Radiation dose: Integrated Dose-length product (DLP) for this visit = 694 mGy*cm. CT Dose Reduction Employed: mAs-kVp adjusted based on patient size-age COMPARISON: February 08, 2016 RESULT: Liver: Tiny cysts or hemangiomas in the liver. Biliary: No bile duct dilation. No calcified gallstones are seen. Spleen: No mass. No splenomegaly. Pancreas: No mass or duct dilation. Adrenals: No mass. Kidneys: Possible tiny cortical cyst involving the lower pole of the left kidney. No left renal calculus or hydronephrosis. No right renal calculus, hydronephrosis, or renal lesion. GI tract: Diverticulosis of the colon. Surgical anastomotic line involving the sigmoid colon. Postsurgical change involving the bowel in the left mid abdomen. No acute inflammatory process identified involving the bowel. No evidence of bowel obstruction. Small lymph nodes adjacent to the proximal ascending colon. Lymph nodes: No abdominal or pelvic lymphadenopathy. Mesentery/Peritoneum: No ascites or mass. Retroperitoneum: No mass. Vasculature: The celiac axis and SMA are patent. The portal vein and branches, splenic vein, SMV, and hepatic veins are patent. Minimal atherosclerotic calcification involving the abdominal aorta. Pelvis: No free fluid or free air identified. Bladder is unremarkable in appearance. Fat-containing right inguinal hernia. No inguinal adenopathy or mass. Bones/Soft Tissues: Endplate osteophytes at multiple levels in the imaged thoracic and lumbar spine. Left-sided convex curvature of the lumbar spine. Lower thorax: Atelectasis in the left lung base. No pericardial effusion or pericardial thickening. Automatic Transmission Mechanic (topogram) images: No additional findings. IMPRESSION: No acute process identified involving the abdomen or pelvis. No evidence of bowel obstruction. New small lymph nodes adjacent to the proximal ascending colon which may be reactive in nature and related to an associated inflammatory or infectious process. Direct visualization of the ascending colon with colonoscopy is recommended if not recently performed. Stable appearing small cysts or hemangiomas in the liver. Vascular disease. Additional findings noted above. Vrt Mechanic: MICHAEL Transcribe Date/Time: Dec 27 2019 7:29P Dictated by : CAROLANN COTTRELL MD This examination was interpreted and the report reviewed and electronically signed by: CAROLANN COTTRELL MD on Dec 27 2019 7:35PM EST [id number] Normal [facility] Comp Metabolic Panelon 12-26 Albumin [Mass/Vol] 4.8 g/dL Normal 3.9-4.9 [facility] Comment on above: Performed By: #### L IPA, CMP, CBCDIF #### [facility] [address] [place] [address] ALP [Catalytic activity/Vol] 107 U/L Normal 34-123 [facility] Comment on above: Performed By: #### L IPA, CMP, CBCDIF #### [facility] [address] [place] [address] ALT [Catalytic activity/Vol] 19 U/L Normal 7-38 [facility] Comment on above: Performed By: #### L IPA, CMP, CBCDIF #### [facility] [address] [place] [address] Anion gap [Moles/Vol] 12 mmol/L Normal 9-18 [facility] Comment on above: Performed By: #### L IPA, CMP, CBCDIF #### [facility] [address] [place] [address] AST [Catalytic activity/Vol] 21 U/L Normal 13-35 [facility] Comment on above: Performed By: #### L IPA, CMP, CBCDIF #### [facility] [address] [place] [address] Bilirubin [Mass/Vol] 0.3 mg/dL Normal 0.2-1.3 [facility] Comment on above: Performed By: #### L IPA, CMP, CBCDIF #### [facility] [address] [place] [address] Calcium [Mass/Vol] 9.5 mg/dL Normal 8.5-10.2 [facility] Comment on above: Performed By: #### L IPA, CMP, CBCDIF #### [facility] [address] [facility] [phone] Chloride [Moles/Vol] 98 mmol/L Normal 97-105 [facility] Comment on above: Performed By: #### L IPA, CMP, CBCDIF #### [facility] [address] [facility] [phone] CO2 [Moles/Vol] 26 mmol/L Normal 22-30 [facility] Comment on above: Performed By: #### L IPA, CMP, CBCDIF #### [facility] [address] [phone] Creatinine [Mass/Vol] 0.89 mg/dL Normal 0.58-0.96 [facility] Comment on above: Performed By: #### L IPA, CMP, CBCDIF #### [facility] [address] [phone] eGFR- Amer. >60 Normal [facility] Comment on above: Performed By: #### L IPA, CMP, CBCDIF #### [facility] [address] GFR/1.73 sq M predicted among non-blacks MDRD (S/P/Bld) [Vol rate/Area] mL/min/{1.73_m2} Normal [facility] Comment on above: Result Comment: eGFR (Estimated GFR) Units of measure: mL/min/1.73 meters squared eGFR is derived from the reexpressed MDRD Study equation using the following parameters: serum creatinine, age, gender and race. The creatinine assay has been calibrated to be traceable to IDMS. An eGFR <60 mL/min/1.73m2 for >3 months is consistent with chronic kidney disease. Refer to KDOQI guidelines for clinical interpretation. In patients with unstable renal function, e.g. those with acute kidney injury, the eGFR may not accurately reflect actual GFR. Performed By: #### L IPA, CMP, CBCDIF #### [facility] [address] [facility] [phone] Glucose [Mass/Vol] 108 mg/dL High 74-99 [facility] Comment on above: Result Comment: The [place] [employer] (ADA) provides guidance for cutoff values for fasting glucose and random glucose. The ADA defines fasting as no caloric intake for at least 8 hours. Fasting plasma glucose results between 100 to 125 mg/dL indicate increased risk for diabetes (prediabetes). Fasting plasma glucose results greater than or equal to 126 mg/dL meet the criteria for diagnosis of diabetes. In the absence of unequivocal hyperglycemia, results should be confirmed by repeat testing. In a patient with classic symptoms of hyperglycemia or hyperglycemic crisis, random plasma glucose results greater than or equal to 200 mg/dL meet the criteria for diagnosis of diabetes. Reference: Standards of Medical Care in Diabetes 2016, [place] [employer]. Diabetes Care. 2016.39(Suppl 1). Performed By: #### L IPA, CMP, CBCDIF #### [facility] [address] [place] [address] Potassium [Moles/Vol] 3.4 mmol/L Low 3.7-5.1 [facility] Comment on above: Performed By: #### L IPA, CMP, CBCDIF #### [facility] [address] [place] [address] Protein [Mass/Vol] 7.8 g/dL Normal 6.3-8.0 [facility] Comment on above: Performed By: #### L IPA, CMP, CBCDIF #### [facility] [address] [place] [address] Sodium [Moles/Vol] 136 mmol/L Normal 136-144 [facility] Comment on above: Performed By: #### L IPA, CMP, CBCDIF #### [facility] [address] [place] [address] Urea nitrogen [Mass/Vol] 15 mg/dL Normal 7-21 [facility] Comment on above: Performed By: #### L IPA, CMP, CBCDIF #### [facility] [address] [place] [address] ED NOTEon 12-27-2019 ED NOTE HNO ID: [id number] Author: Damaris (Rn) MICHELLE Nesbitt Service: ? Author Type: Registered Nurse Type: ED Notes Filed: 12/27/2019 5:38 PM Note Text: Pt states she took herself off the paxil about 2 weeks ago and has been alittle lightheaded since. Pt states she had black tarry stools 3 days last week, started on fiber, and my bowels have been better since, they are more brown now. pt states with her ibs she always has diarrhea. [facility] ED NOTE HNO ID: [id number] Author: Zamzam (Rn) MICHELLE Duong Service: ? Author Type: Registered Nurse Type: ED Notes Filed: 12/27/2019 5:16 PM Note Text: Pt to ED c/o abd pain x 1 week, pt reports she did have some blood in BM last week, has increased fiber intake and has seen less blood in BM. [facility] ED PROV NOTEon 12-27-2019 ED PROV NOTE HNO ID: [id number] Author: Riley Carlos DO Service: Hospital Medicine Author Type: Physician Type: ED Provider Notes Filed: 12/27/2019 8:12 PM Note Text: ED Provider Note Patient Name: Carmel Guillen SERVICE DATE: 12/27/19 History Patient presents with: Abdominal Pain 59-year-old female with history of Calles's esophagus, diverticulitis s/p laparoscopic sigmoidectomy in 2010, hemorrhoids, and hiatal hernia who presents with epigastric abdominal pain and recent dark tarry stools. Patient states that last week (12/19 - 12/20) she had several dark tarry bowel movements. She took additional fiber supplements and her tarry stools resolved. She is now complaining of loose stools with mucous. Currently complaining of 10/10 in severity constant aching back pain that radiates to the epigastric area. The pain is worse with eating. Nothing makes the pain better. Denies chest and shoulder pain. Admits to one episode of palpitations last week which has resolved. She has been taking 200 to 400 mg of ibuprofen 5 days/week with minimal improvement of pain. States she has had decreased appetite for the past several days with nausea, no vomiting. Has had a headache and lightheadedness for the past week which coincides with her stopping her paroxetine. Denies feeling faint or having syncopal episodes. Most recent EGD was within the past several weeks, and she states the findings were normal. History provided by: Patient and medical records PAST MEDICAL HISTORY Diagnosis Date - Calles's esophagus - Diverticulitis - Hemorrhoids - Hiatal hernia PAST SURGICAL HISTORY Procedure Laterality Date - DELIVERY ONLY , low cervical - COLONOSCOPY 01/2016 lymphocytic colitis - COLONOSCOPY 02/01/2015 Dr. Sander Maldonado - COLPOSCOPY (VAGINOSCOPY) 07/11/03 Colposcopy - EGD 07/28/2016 - HYSTERECTOMY HX 08/18 - INGUINAL HERNIA REPAIR HX 09/18 lap IVONNE LIH - PAST SURGICAL HISTORY OF uterine fibroid - PAST SURGICAL HISTORY OF 07/11/[address] Haynes - SMALL BOWEL 06/18 lap small bowel resection - UNL LAPAR WEDGE RESECTION SIGM COLON 04/19 lap sigmoid resection FAMILY HISTORY Problem Relation Age of Onset - Ischemic Heart Disease Father mi 52 - Ischemic Heart Disease Mother mi 50 or 59? - Thyroid Mother - other (graves) Brother Social History Tobacco Use - Smoking status: Never Smoker - Smokeless tobacco: Never Used Substance and Sexual Activity - Alcohol use: Yes Alcohol/week: 17.5 standard drinks Types: 7 Cans of Beer (12oz) per week Comment: 1 light beer/day (7 beers/day - max) - Drug use: No - Sexual activity: Yes ALLERGIES Allergen Reactions - Darvocet A500 [Prop* Rash - Doxycycline Unknown - Propoxyphene - Sulfa (Sulfonamide * Unknown Review of Systems Constitutional: Negative for activity change, chills, diaphoresis and fever. HENT: Negative. Negative for dental problem, ear pain and sore throat. Eyes: Negative. Negative for photophobia, pain and visual disturbance. Respiratory: Negative. Negative for chest tightness and wheezing. Cardiovascular: Negative. Negative for chest pain. Gastrointestinal: Positive for abdominal pain, blood in stool, diarrhea and nausea. Negative for vomiting. Endocrine: Negative. Genitourinary: Negative. Negative for difficulty urinating, flank pain, frequency and urgency. Musculoskeletal: Negative. Negative for arthralgias, neck pain and neck stiffness. Skin: Negative. Negative for color change and rash. Allergic/Immunologic: Negative. Neurological: Positive for light-headedness and headaches. Negative for dizziness, seizures, syncope, weakness and numbness. Hematological: Negative. Negative for adenopathy. Psychiatric/Behavioral: Negative. Negative for agitation, behavioral problems, confusion and suicidal ideas. All other systems reviewed and are negative. Physical Exam BP 172/85[room air[ Pulse 76[room air[ Temp (Src) 97.5 (Temporal) Resp 16 Wt 190 lb (86.2kg) SpO2 99[room air]% O2 Therapy: Room Air Physical Exam Vitals signs and nursing note reviewed. Exam conducted with a cleaner and presser present. Constitutional: General: She is not in acute distress. Appearance: She is well-developed. HENT: Head: Normocephalic and atraumatic. Right Ear: External ear normal. Left Ear: External ear normal. Eyes: General: No scleral icterus. Right eye: No discharge. Left eye: No discharge. Conjunctiva/sclera: Conjunctivae normal. Pupils: Pupils are equal, round, and reactive to light. Neck: Musculoskeletal: Normal range of motion and neck supple. Trachea: No tracheal deviation. Cardiovascular: Rate and Rhythm: Normal rate and regular rhythm. Heart sounds: Normal heart sounds. No murmur. Pulmonary: Effort: Pulmonary effort is normal. No respiratory distress. Breath sounds: Normal breath sounds. Abdominal: General: Bowel sounds are normal. There is no distension. Palpations: Abdomen is soft. There is no mass. Tenderness: There is abdominal tenderness in the right upper quadrant, epigastric area and left upper quadrant. There is no guarding or rebound. Genitourinary: Rectum: Normal. Guaiac result negative. No external hemorrhoid or internal hemorrhoid. Comments: Rectal exam performed with female cleaner and presser via ocular, RN. Normal rectal tone. Brown stool in rectal vault. Hemoccult negative. Musculoskeletal: Normal range of motion. General: No tenderness. Skin: General: Skin is warm and dry. Findings: No rash. Neurological: Mental Status: She is alert and oriented to person, place, and time. GCS: GCS eye subscore is 4. GCS verbal subscore is 5. GCS motor subscore is 6. Cranial Nerves: No cranial nerve deficit. Sensory: No sensory deficit. Coordination: Coordination normal. Comments: Normal speech. No facial droop or asymmetry. 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 Moves all extremities with purpose. No focal motor or sensory deficits. No focal neurological deficits. Psychiatric: Mood and Affect: Mood normal. Behavior: Behavior normal. Diagnostic Testing ED Labs Ordered and Reviewed COMP METABOLIC PANEL - Abnormal; Notable for the following components: Result Value Ref Range Glucose 108 (*) 74 - 99 mg/dL Potassium 3.4 (*) 3.7 - 5.1 mmol/L All other components within normal limits CBC + DIFF LIPASE BLD PROTHROMBIN TIME/PT ACTIVATED PTT TROPONIN T URINALYSIS OCCULT BLD EXAM-DIAG Procedures ED Course / Clinical Impression Clinical Impressions as of Dec 26 2009 Epigastric abdominal pain Nausea Hypokalemia MDM / Disposition / Plan 59-year-old female presents with thoracic back pain radiating to the epigastric area and nausea. Reports she regularly uses NSAIDs. States she had black stools last week that have resolved. Possible peptic ulcer disease. Abdomen soft with epigastric tenderness on exam. Possible pancreatitis. Labs. Urinalysis. GI cocktail and Protonix. Zofran for nausea. Saline bolus. CT abdomen and pelvis to evaluate for acute intra-abdominal findings. Will reevaluate after initial work-up and treatment. Hemoglobin normal. Stool negative for blood. Troponin negative. EKG shows sinus rhythm with no acute injury pattern. Doubt acute coronary syndrome. Potassium borderline low at 3.4. Replace by mouth. CT pending. CT shows no acute process in the abdomen or pelvis. No bowel obstruction. Small lymph nodes adjacent to proximal ascending colon which may be reactive or related to inflammatory infectious process. Colonoscopy recommended if not recently performed. I discussed this radiographic finding with GI on-call Dr. Hamilton, who states patient can follow-up in the office. Symptoms minimally changed after treatment. Abdomen soft with mild epigastric tenderness on repeat abdominal exam. No peritonitis. Etiology of symptoms unclear. No evidence of active GI bleed, pancreatitis, or other acute intra-abdominal process. Given prescription for Reglan to take as needed for nausea. Referred to GI for follow-up. Advised to return for repeat evaluation in 12 hours or sooner with increasing or worsening abdominal pain, persistent vomiting, or other concerns. Patient agreeable with plan and verbalized understanding. Discharged home in stable condition. Additional Tests or Interventions: ECG EKG INTERPRETATION: Ordered and Reviewed Rhythm: Normal sinus rhythm Rate: 75 [place]: Normal axis and Left axis deviation Intervals: Normal TN interval QRS Complex: Normal ST Segment: Nonspecific ST-T changes (T wave inversion in lead III. Unchanged from prior EKG.) QT Interval: Normal Compared with Prior: Unchanged Interpretation performed by Riley Carlos, DO Disposition The patient was discharged and given RX. Counseled patient regarding lab results, radiology results and suspected diagnosis. As well as the need for follow-up. Discharged home with verbal and written instructions. They were instructed to return as needed for persistent or worsening symptoms or any new concerns. Medication(s) prescribed include Reglan. Condition at disposition is stable. SIGNATURE: Jennifer Ryan Ms Riley Carlos, DO 12/27/192011 Normal [facility] Lipaseon 12-27-2019 Lipase [Catalytic activity/Vol] 25 U/L Normal 16-61 [facility] Comment on above: Performed By: #### L IPA, CMP, CBCDIF #### [facility] [address] [facility] [phone] Occult Blood Diag.on 020 Occult Blood Diag. Negative Normal [facility] Comment on above: Performed By: #### O BDX ####[facility] Mrgtqpbmrv9216 [phone] Occult Blood Source: Stool Normal [facility] Comment on above: Performed By: #### O BDX ####[facility] [address]53[address] [phone] Protimeon 12-27-2019 PT Coag (PPP) [Time] 1.0 s Normal 0.9-1.3 [facility] Comment on above: Result Comment: Diana min K Antagonist (VKA) Therapeutic Range: INR 2 to 3 (Target INR of 2.5) Note: For patients treated with VKA drugs, such as warfarin, the [place] [employer] 2012 Guideline recommends a therapeutic INR range of 2 to 3 (target INR of 2.5). This recommendation includes high-risk patients with antiphospholipid syndrome with previous arterial or venous thromboembolism, current-generation mechanical or bioprosthetic aortic heart valve replacement. Note: Patients with mechanical aortic valve replacement and additional risk factors for thromboembolic events (atrial fibrillation, previous thromboembolism, LV dysfunction, hypercoagulable conditions) or an older generation mechanical AVR (i.e., ball in-Cage) or any mechanical MVR should have a INR therapeutic range of 2.5 to 3.5 (target INR of 3). Latrell GH, et al. Chest 2012, 141:7S-47S [place]yenne RA, et al. [facility] 2017, 70: 252-289 Performed By: #### P TT, PT #### [facility] [address] [facility] [phone] PT Coag (PPP) [Time] 10.2 s Normal 9.7-13.0 [facility] Comment on above: Performed By: #### P TT, PT #### [facility] [address] [place] [phone] Troponin Ton 12-27-2019 Troponin T.cardiac [Mass/Vol] ug/L Normal 0.000-0.02 9 [facility] Comment on above: Performed By: #### T NT ####[facility] [address] [place] [address] Urinalysison 12-27-2019 Bilirubin, Urine Negative Normal Negative [facility] Comment on above: Performed By: #### U A, UAMIC ####[facility] [address] [place] [address] Clarity (U) Clear Normal Clear [facility] Comment on above: Performed By: #### U A, UAMIC ####[facility] [address] [place] [address] Color (U) Yellow Normal Yellow [facility] Comment on above: Performed By: #### U A, UAMIC ####[facility] [address] [place] [address] Glucose Ql (U) Negative Normal Negative [facility] Comment on above: Performed By: #### U A, UAMIC ####[facility] [address] [place] [address] Hemoglobin/Blood,Ur Negative Normal Negative [facility] Comment on above: Performed By: #### U A, UAMIC ####[facility] [address] [place] [address] Ketones Ql (U) Negative Normal Negative [facility] Comment on above: Performed By: #### U A, UAMIC ####[facility] [address] [place] [address] Leukest 1+ Critically abnormal Negative [facility] Comment on above: Performed By: #### U A, UAMIC ####[facility] [address] [place] [address] Nitrite Ql (U) Negative Normal Negative [facility] Comment on above: Performed By: #### U A, UAMIC ####[facility] [address] [place] [id number] pH (Bld) 6.0 Normal 5.0-8.0 [facility] Comment on above: Performed By: #### U A, UAMIC ####[facility] [address] [place] [address] Protein (U) [Mass/Vol] Negative Normal Negative [facility] Comment on above: Performed By: #### U A, UAMIC ####[facility] [address] [place] [address] Specific Collins, Ur 1.025 Normal 1.005-1 .03 0 [facility] Comment on above: Performed By: #### U A, UAMIC ####[facility] [address] [place] [address] Urobilinogen Qn (U) 0.2 E.U./dL Normal 0.2-1.0 [facility] Comment on above: Performed By: #### U A, UAMIC ####[facility] [address] [place] [address] Urine Microscopic (FOR LAB U SE ONLY)on 12-27-2019 Bacteria LM.HPF (Urine sed) [#/Area] Few Critically abnormal 0 [facility] Comment on above: Performed By: #### U A, UAMIC ####[facility] [address] [place] [address] Cast SEE COMMENT Normal 0 [facility] Comment on above: Result Comment: 0 Performed By: #### U A, UAMIC ####[facility] [address] [place] [address] Epithelial cells LM.HPF (Urine sed) [#/Area] SEE COMMENT Normal [facility] Comment on above: Result Comment: 5-10 Squamous Epithelial Cells Performed By: #### U A, UAMIC ####[facility] [address] [place] [address] RBC (U) [#/Vol] 0-3 Normal 0-3 [facility] Comment on above: Performed By: #### U A, UAMIC ####[facility] [address] [place] [address] WBC (Bld) [#/Vol] 0-5 Normal 0-5 [facility] Comment on above: Performed By: #### U A, UAMIC ####[facility] [address] [place] [address] C STOOLon 10-24-2019 C STOOL [facility] pt of Laboratory Services [address] [place] [phone] Name: CARMEL GUILLEN : 1960 Admitting Provider: Gender: Female Financial [phone] Number: Location: Lab DropOff Admit 10/22/2019 Date: Discharge 10/22/2019 Date: Microbiology PROCEDURE: C STOOL SOURCE: STOOL BODY SITE: COLLECTED DATE/TIME: 10/22/2019 11:26 EDT RECEIVED DATE/TIME: 10/22/2019 13:53 EDT START DATE/TIME: 10/22/2019 13:53 EDT FREE TEXT SOURCE: ORDERING PHYSICIAN: TREY SCHMIDT FINAL REPORTS Final Report [] Verified Date/Time: 10/24/2019 08:56 EDT Normal Enteric Brenda isolated. Negative for Salmonella and Shigella Negative for Aeromonas and Yersinia Negative for Campylobacter antigen via Immunoassay Stool negative for Shiga toxins 1 and 2 L=Low, H= High, *= Abnormal, C=Critical, f=Footnote, c=Corrected, i=Interp Data Name: CARMEL GUILLEN Print Date/ 10/24/2019 08:56 EDT Time: Normal [facility] Comment on above: Performed By: #### 1 [id number] #### [facility] [address] [place] [address] Shoe Laster: MD EHSAN SalgadoECfiorella 10-23-2019 [facility] Present [facility] Comment on above: Order Comment: EHEC added on by Discern Expert to check for Shigatoxin 1 and 2. Performed By: #### 7 [id number] #### [facility] [address] [place] [address] Shoe Laster: Tyler Bruce MD ST-1 Negative [facility] Comment on above: Order Comment: EHEC added on by Discern Expert to check for Shigatoxin 1 and 2. Performed By: #### 7 [id number] #### [facility] [address] [place] [address] Shoe Laster: Tyler Bruce MD ST-2 Negative [facility] Comment on above: Order Comment: EHEC added on by Discern Expert to check for Shigatoxin 1 and 2. Performed By: #### 7 [id number] #### [facility] [address] [place] [address] Shoe Laster: Tyler Bruce MD O AND P RTon 10-23-2019 Cryptosporidium Antigen Negative [facility] Comment on above: Performed By: #### 5 [id number], [id number] #### [facility] [address] [place] [address] Shoe Laster: Tyler Bruce MD Giardia Antigen Negative [facility] Comment on above: Performed By: #### 5 [id number], [id number] #### [facility] [address] [place] [address] Shoe Laster: Tyler Bruce MD OP INT QC Present [facility] Comment on above: Performed By: #### 5 [id number], [id number] #### [facility] [address] [place] [address] Shoe Laster: Tyler Bruce MD C ST WBCon 10-22-2019 WBC (Bld) [#/Vol] [facility] pt of Laboratory Services [address] [place] [phone] Name: CARMEL GUILLEN : 1960 Admitting Provider: Gender: Female Financial [phone] Number: Location: Lab DropOff Admit 10/22/2019 Date: Discharge Date: Microbiology PROCEDURE: C ST WBC SOURCE: STOOL BODY SITE: COLLECTED DATE/TIME: 10/22/2019 11:35 EDT RECEIVED DATE/TIME: 10/22/2019 13:53 EDT START DATE/TIME: 10/22/2019 13:53 EDT FREE TEXT SOURCE: ORDERING PHYSICIAN: TREY SCHMIDT STAINS GS [] Verified Date/Time: 10/22/2019 15:02 EDT No White Blood Cells seen. Mixed fecal brenda. L=Low, H= High, *= Abnormal, C=Critical, f=Footnote, c=Corrected, i=Interp Data Name: CARMEL GUILLEN Print Date/ 10/22/2019 15:02 EDT Time: Normal [facility] Comment on above: Performed By: #### 4 [id number] #### [facility] [address] [place], [place] [id number] Shoe Laster: Tyler Bruce MD CDIFF TOXon 10-22-2019 C. Difficile Toxin Negative Normal [facility] Comment on above: Result Comment: Clos tridium difficile toxin assay is now performed via real-time and reverse transcritption Polymerase Chain Reaction (RTPCR) and (PCR) assays. Performed By: #### 1 [id number] #### [facility] Services [address] [place], [place] [id number] Shoe Laster: Tyler Bruce MD ST OCCSCRon 10-22-2019 Screen for Stool Occult Blood Negative Normal Negative [facility] Comment on above: Performed By: #### 5 [id number], [id number] #### [facility] General Laboratory Services [address] [place] [address] Shoe Laster: Tyler Bruce MD AUTO DIFFon 10-21-2019 Basophils (Bld) [#/Vol] 0.04 x1000 Normal 0.00-0.20 [facility] Comment on above: Performed By: #### 1 01886, [id number], [id number] #### [facility] Services [address] [place] [address] Shoe Laster: Tyler Bruce MD Basos % 0.4 % Normal [facility] Comment on above: Performed By: #### 1 , [id number], [id number] #### [facility] Services [address] [place] [address] Shoe Laster: Tyler Bruce MD Eos Count 0.19 x1000 Normal 0.00-0.50 [facility] Comment on above: Performed By: #### 1 , [id number], [id number] #### [facility] [address] [place] [address] Shoe Laster: Tyler Bruce MD Eosinophils/100 WBC (Bld) 2.2 % Normal [facility] Comment on above: Performed By: #### 1 , [id number], [id number] #### [facility] Services [address] [place], [place] [address] Shoe Laster: Tyler Bruce MD Lymphocytes (Bld) [#/Vol] 2.75 x1000 Normal 1.20-4.80 [facility] Comment on above: Performed By: #### 1 , [id number], [id number] #### [facility] Services [address] [place] [address] Shoe Laster: Tyler Bruce MD Lymphocytes/100 WBC (Bld) 31.7 % Normal [facility] Comment on above: Performed By: #### 1 , [id number], [id number] #### [facility] Services [address] [place] [address] Shoe Laster: Tyler Bruce MD [place]anan Count 0.58 x1000 Normal 0.10-1.00 [facility] Comment on above: Performed By: #### 1 78469, [id number], [id number] #### [facility] [address] [place] [address] Shoe Laster: Tyler Bruce MD Monocytes/100 WBC (Bld) 6.8 % Normal [facility] Comment on above: Performed By: #### 1 , [id number], [id number] #### [facility] [address] [place] [address] Shoe Laster: Tyler Bruce MD Neutrophils (Bld) [#/Vol] 5.11 x1000 Normal 1.40-8.80 [facility] Comment on above: Performed By: #### 1 , [id number], [id number] #### [facility] [address] [place] [address] Shoe Laster: Tyler Bruce MD Neutrophils/100 WBC (Bld) 58.9 % Normal [facility] Comment on above: Performed By: #### 1 81747, [id number], 656091 #### [facility] [address] [place] [address] Shoe Laster: Tyler Bruce MD COMPMETn 10-21-2019 Albumin/Globulin [Mass ratio] 1.0 {ratio} Normal [facility] Comment on above: Performed By: #### 1 48460, [id number], [id number] #### [facility] [address] [place] [address] Shoe Laster: Tyler Bruce MD GFR AA >60 Normal [facility] Comment on above: Result Comment: Afri can [place] GFR Calc Medical judgement is necessary to interpret GFR. The calculated GFR may not accurately reflect renal status in patients >70 years, women, acutely ill hospitalized patients and patients with acute renal failure or known renal disease. The MDRD GFR formula is valid only for adults greater than 18 years of age. Note: Creatinine clearance (not GFR) should be used for drug dosing. Performed By: #### 1 61371, [id number], [id number] #### [facility] [address] [place] [address] Shoe Laster: Tyler Bruce MD GFR/1.73 sq M predicted among non-blacks MDRD (S/P/Bld) [Vol rate/Area] 54 mL/min/1.73m? Normal [facility] Comment on above: Result Comment: Non GFR Calc Medical judgement is necessary to interpret GFR. The calculated GFR may not accurately reflect renal status in patients >70 years, women, acutely ill hospitalized patients and patients with acute renal failure or known renal disease. The MDRD GFR formula is valid only for adults greater than 18 years of age. Note: Creatinine clearance (not GFR) should be used for drug dosing. Performed By: #### 1 01289, [id number], [id number] #### [facility] [address] [place] [address] Shoe Laster: Tyler Bruce MD Globulin (S) [Mass/Vol] 3.5 g/dL Normal [facility] Comment on above: Performed By: #### 1 28207, [id number], 115269 #### [facility] [address] [place] [address] Shoe Laster: Tyler Bruce MD Osmolality [Osmolality] 285 mOsm/kg Normal 275-295 [facility] Comment on above: Performed By: #### 1 , [id number], [id number] #### [facility] [address] [place] [address] Shoe Laster: Tyler Bruce MD Urea nitrogen/Creatinine [Mass ratio] 12.4 mg/mg Normal [facility] Comment on above: Performed By: #### 1 18923, [id number], [id number] #### [facility] [address] [place] [address] Shoe Laster: Tyler Bruce MD Albumin [Mass/Vol] 3.5 g/dL Normal 3.4-5.0 [facility] Comment on above: Performed By: #### 1 00139, [id number], 034862 #### [facility] [address] [place] [address]698 Shoe Laster: Tyler Bruce MD Alk Phos 108 unit/L Normal 45-117 [facility] Comment on above: Performed By: #### 1 , [id number], [id number] #### [facility] [address] [place] [address] 89183 Shoe Laster: Tyler Bruce MD Bilirubin [Mass/Vol] 0.22 mg/dL Normal 0.20-1.00 [facility] Comment on above: Result Comment: Use of this assay is not recommended for patients undergoing treatment with eltrombopag due to the potential for falsely elevated results. Performed By: #### 1 77471, [id number], 225804 #### [facility] [address] [place] [address]679 Shoe Laster: Tyler Bruce MD Calcium [Mass/Vol] 9.1 mg/dL Normal 8.5-10.5 [facility] Comment on above: Performed By: #### 1 20677, [id number], 626193 #### [facility] [address] [place] [address] Shoe Laster: Tyler Bruce MD Chloride [Moles/Vol] 110 mmol/L High 100-109 [facility] Comment on above: Performed By: #### 1 71974, 4053430, 796517 #### [facility] [address] [place] [address] 53347 Shoe Laster: Tyler Bruce MD CO2, venous 26.5 mmol/L Normal 21.0-32.0 [facility] Comment on above: Performed By: #### 1 12402, [id number], 651476 #### [facility] [address] [place] [address] Shoe Laster: Tyler Bruce MD Creatinine [Mass/Vol] 1.0 mg/dL Normal 0.6-1.0 [facility] Comment on above: Performed By: #### 1 95652, [id number], [id number] #### [facility] [address] [place] [address] 23976 Shoe Laster: Tyler Bruce MD Glucose [Mass/Vol] 123 mg/dL High 72-100 [facility] Comment on above: Result Comment: Joaquina puncture should occur prior to sulfasalazine administration due to the potential for falsely depressed results. Venipuncture should occur prior to sulfapyridine administration due to the potential falsely elevated results. Baseline assay values before administration of sulfasalazine and sulfapyridine therapy would not be affected. Performed By: #### 1 [id number], [id number], [id number] #### [facility] [address] [place], [place] [id number] Shoe Laster: Tyler Bruce MD GOT 14 unit/L Low 15-37 [facility] Comment on above: Result Comment: Joaquina puncture should occur prior to sulfasalazine and/or sulfapyridine administration due to the potential for falsely depressed results. Baseline assay values before administration of sulfasalazine and sulfapyridine therapy would not be affected. Performed By: #### 1 72726, [id number], [id number] #### [facility] [address] [place] [address] Shoe Laster: Tyler Bruce MD GPT 21 unit/L Normal 13-56 [facility] Comment on above: Result Comment: Joaquina puncture should occur prior to sulfasalazine and/or sulfapyridine administration due to the potential for falsely depressed results. Baseline assay values before administration of sulfasalazine and sulfapyridine therapy would not be affected. Performed By: #### 1 01805, [id number], [id number] #### [facility] [address] [place] [address] Shoe Laster: Tyler Bruce MD Potassium [Moles/Vol] 4.4 mmol/L Normal 3.5-5.1 [facility] Comment on above: Performed By: #### 1 75961, [id number], 720989 #### [facility] [address] [place] [address] Shoe Laster: Tyler Bruce MD Protein [Mass/Vol] 7.0 g/dL Normal 6.0-8.5 [facility] Comment on above: Performed By: #### 1 , [id number], [id number] #### [facility] [address] [place] [address] Shoe Laster: Tyler Bruce MD Sodium [Moles/Vol] 142 mmol/L Normal 135-145 [facility] Comment on above: Performed By: #### 1 , [id number], 864351 #### [facility] [address] [place] [address] Shoe Laster: Tyler Bruce MD Urea nitrogen [Mass/Vol] 13 mg/dL Normal 10-20 [facility] Comment on above: Performed By: #### 1 52093, [id number], 237597 #### [facility] [address] [place] [address] Shoe Laster: Tyler Bruce MD HEMOon 10-21-2019 DIFF? No Normal [facility] Comment on above: Performed By: #### 1 23545, [id number], [id number] #### [facility] [address] [place] [address] Shoe Laster: Tyler Bruce MD Erythrocyte distribution width (RBC) [Ratio] 12.7 % Normal 11.5-14.5 [facility] Comment on above: Performed By: #### 1 92292, 6363246, 039737 #### [facility] [address] [place] [address] Shoe Laster: Tyler Bruce MD Hematocrit (Bld) [Volume fraction] 39.1 % Normal 36.0-46.0 [facility] Comment on above: Performed By: #### 1 , [id number], [id number] #### [facility] [address] [place], [place] [address] Shoe Laster: Tyler Bruce MD Hemoglobin (Bld) [Mass/Vol] 13.2 g/dL Normal 12.0-16.0 [facility] Comment on above: Performed By: #### 1 , [id number], [id number] #### [facility] [address] [place], [place] [address] Shoe Laster: Tyler Bruce MD MCH (RBC) [Entitic mass] 31.6 pg Normal 27.0-34.0 [facility] Comment on above: Performed By: #### 1 , [id number], [id number] #### [facility] [address] [place] [address] Shoe Laster: Tyler Bruce MD MCHC (RBC) [Mass/Vol] 33.8 g/dL Normal 32.0-37.0 [facility] Comment on above: Performed By: #### 1 , [id number], [id number] #### [facility] [address] [place], [place] [address] Shoe Laster: Tyler Bruce MD MCV (RBC) [Entitic vol] 93.5 fL Normal 80.0-100.0 [facility] Comment on above: Performed By: #### 1 , 8389180, [id number] #### [facility] [address] [place], [place] [address] Shoe Laster: Tyler Bruce MD Nucleated RBC (Bld) [#/Vol] 0 /100WBC Normal [facility] Comment on above: Performed By: #### 1 , 7891890, 689765 #### [facility] [address] [place], [place] [address] Shoe Laster: Tyler Bruce MD Platelet mean volume (Bld) [Entitic vol] 8.0 fL Normal 7.4-10.4 [facility] Comment on above: Performed By: #### 1 16129, 1037761, 501453 #### [facility] [address] [place] [address] Shoe Laster: Tyler Bruce MD Platelets (Bld) [#/Vol] 351 x1000 Normal 150-450 [facility] Comment on above: Performed By: #### 1 03157, 5221875, 532001 #### [facility] [address] [place] [address] Shoe Laster: Tyler Bruce MD RBC (Bld) [#/Vol] 4.19 x10 Low 4.20-5.40 [facility] Comment on above: Result Comment: Note : RBC morphology is normal unless otherwise stated. Evaluation performed only if differential is requested. Performed By: #### 1 73794, [id number], 878993 #### [facility] [address] [place] [address] Shoe Laster: Tyler Bruce MD WBC (Bld) [#/Vol] 8.7 10*3/uL Normal [facility] Comment on above: Performed By: #### 1 59459, [id number], 244635 #### [facility] [address] [place] [address] Shoe Laster: Tyler Bruce MD WBC (Bld) [#/Vol] 8.7 x10 Normal 4.5-11.0 [facility] Comment on above: Performed By: #### 1 11433, [id number], 924732 #### [facility] [address] [place] [address] Shoe Laster: Tyler Bruce MD CASE MGT INIT MAMADOUfiorella 2016 CASE MGT INIT MAMADOU HNO ID: [id number] thor: Tran (Rn) ANDREA Condonervice: Care ManagementAuthor Type: Registered NurseType: Care Mgt Initial AssessmentFiled: 08/14/2016 12:32 PMNote Text:CARE MANAGEMENT: ASSESSMENT AND DISCHARGE PLANSERVICE DATE: 08/14/2016SERVICE TIME: 12:15 pmPRIMARY CARE PHYSICIAN:Joshua Gamboa, [facility] DOTHANhone: [phone] STATUS: ObservationMet with patient at the bedside to discuss post acute care planning. Pt madan 56 year old female who presented to the emergency department with chestpain.Introduced self to patient and explained TCC role. Pt states she liveswith her and 16 year old daughter in [place], [place]. [place] when she experienced chest pain so drove herself to theemergency department. Pt states she was independent prior to this hospitalstay, she denies using any medical equipment in the home. Pt shared shealso has a 33 year old daughter in the area and 2 grandchildren.No skilled needs have been identified at this time. TCC will continue tofollow during hospital stay.POTENTIAL DISCHARGE PLANSNo Services IndicatedPatient/Representat augustine Stated Goals: I'm supposed to babysit tonightNeeds Prior to Discharge: Discharge PrescriptionsHealth Insurance: CignaLiving Arrangement: HomeLives With: Spouse and DaughterFinancial Resources: Employed: Full timePrimary Contact:Extended Emergency Contact InformationPrimary Emergency Contact: Richard Guillen: [address] [place] [address]Evbg Hrlgvnoc: SpouseSupportive: YesOther Important Patient Contacts: Pt mentioned her adult daughter wholives in the areaCAREGIVER ASSESSMENT:Caregiver is ready, willing and able to meet the patient's needs asrecommended by the inter-professional team? No Caregiver NeededPatient's transition needs and plan for meeting these needs: Pt willtransition to her home with no skilled needsDoes the patient have an acute stroke diagnosis, or has the patient had astroke during this admission? NoADVANCE DIRECTIVES:Does Patient Have Advance Directives? No, pt states they are in theprocess of completing AD paper workDoes Patient Have Concerns About Advance Directives? NoPRIOR TO ADMISSION:Baseline Mental Status: Alert AND Oriented, Person, Place , Time andSituationFunctional Status: IndependentDoes Patient Currently Receive Any Community Services or Home Care? NoneEquipment Prior to Admission: NoneHEALTH:Health Issues Impacting Discharge Plan: Calles's esophagusHealth Literacy Issues: NoPSYCHOSOCIAL:Is the Patient Psychosocially Complex? NoFamily/Patient Understanding of Illness/Diagnosis: yes, pt voiced herunderstandingMedication Adherence:Do you forget to take your medications? I do not forget to take mymedicationHave you ever stopped taking medications because you felt worse? None ofthe timeHave you ever taken less of your medication than what was prescribed byyour doctor? None of the timeIn the past 3 months, have you had issues obtaining one or more of yourmedications? None of the timeAre you interested in bedside delivery of your medications? YesFood Concerns:In the Last Month, Have You had Trouble Getting Food? No trouble gettingfoodDuring the Last Month, Have You Worried Whether Your Food Would Run OutBefore You Had Enough Money to Buy More? NoPsychosocial Needs: NoneUTILIZATION:Last Admission Date: Previous admit date: 05/01/2010Is this Within the Past 30 days? NoHas the Patient Been in a Longterm Facility in the Past 30 days? NoFREEDOM OF CHOICE EXPLAINED:N/KIRSTIE COMMUNICATION:Primary Care Physician: Joshua Gamboa Ob states her will provide transportation home at the time ofdischarge.SIGNATURE: Tran Condon RN PATIENT NAME: Carmel DobsonATE: August 14, 2016 : 12:19 PM PAGER/CONTACT #: [phone] Normal [facility] CBC and Differentialon 08-14 Abs Baso 0.02 k/uL Normal 0.00-0.10 [facility] Abs Buchanan 0.47 k/uL Normal 0.00-0.86 [facility] Abs Neut 5.05 k/uL Normal 1.45-7.50 [facility] Basophils/100 WBC Auto (Bld) 0.3 % Normal [facility] DTYPE Auto Diff Normal [facility] Eosinophils 0.04 10*3/uL Normal 0.00-0.45 [facility] Eosinophils/100 leukocytes 0.5 % Normal [facility] Erythrocyte distribution width Auto Ratio (RBC) 14.1 % Normal 11.5-15.0 [facility] Erythrocytes (RBC) 3.89 10*6/uL Low 3.90-5.20 [facility] Erythrocytes (RBC) 0.0 /100 WBC Normal 0 [facility] Erythrocytes (RBC) 0.00 10*6/uL Normal [facility] Hematocrit (HCT) 36.0 % Normal 36.0-46.0 [facility] Hemoglobin mass conc (Bld) 11.6 g/dL Normal 11.5-15.5 [facility] Lymphocytes 2.35 10*3/uL Normal 1.00-4.00 [facility] Lymphocytes/100 leukocytes 29.6 % Normal [facility] MCH 29.8 pG Normal 26.0-34.0 [facility] MCHC mass conc (RBC) 32.2 g/dL Normal 30.5-36.0 [facility] MCV 92.5 fL Normal 80.0-100.0 [facility] Monocytes/100 leukocytes 5.9 % Normal [facility] Neutrophils/100 WBC Auto (Bld) 63.7 % Normal [facility] Platelet mean volume (PMV) 8.8 fL Low 9.0-12.7 [facility] Platelets 299 10*3/uL Normal 150-400 [facility] WBC (Leukocytes) 7.93 10*3/uL Normal 3.70-11.00 [facility] CNDSon 08-14-2016 [facility] HNO ID: [id number] thor: Homer Fischere: [facility] MedicineAuthor Type: PhysicianType: Discharge SummariesFiled: 08/14/2016 5:28 PMNote Text:DISCHARGE SUMMARY (Less than 48 hr stay)PATIENT NAME: Carmel Ordonez: [id number] Information Admission Information ADMIT DATE: 08/14/2016DISCHARGE DATE: 08/14/2016[facility] Doctor: Homer Shah Care Provider: Brett Rahman Medical Team Members: Treatment Team:Attending Provider: Homer Jones CONDITION AT DISCHARGE: StableREASON I WAS IN THE HOSPITAL: evaluation of chest painSUMMARY OF WHAT HAPPENED WHILE I WAS IN THE HOSPITAL: you were ruled outfor an acute cardiac eventOTHER PROBLEMS/DIAGNOSIS:Principal Problem (Resolved): Chest painActive Problems: Calles esophagus Essential hypertension HypercholesteremiaOPERATIONS PERFORMED WHILE IN THE HOSPITAL: NoneIMPORTANT TEST/PROCEDURES:No procedures performedTEST RESULTS NOT AVAILABLE AT THIS TIME:No pending results Discharge Disposition Discharge Disposition: Home With Self CareActivity When You Leave the Hospital Resume pre-hospital activityDiet Instructions Resume your pre-hospital dietFollow Up Appointments Follow-Up Appointment When: In 2 weeksJoshua [phone] [facility] [id number] Requested ReferralAdditional Provider to Provider Information:Principal Problem (Resolved): Chest pain POA: YesDetails: CE neg x 3, no changes on teleActive Problems: Calles esophagus POA: YesDetails: recent dilation, possible spasm that responded to NTG Essential hypertension POA: YesDetails: cont meds Hypercholesteremia POA: YesDetails: cont medsFOLLOW-UP APPOINTMENTS ALREADY SCHEDULED WITH A [facility] PROVIDERNo future appointments.DISCHARGE MEDICATION: Current Discharge Medication ListCONTINUE these medications which have NOT CHANGEDpredniSONE (DELTASONE) 10 mgTake 10 mg by mouth once daily.PARoxetine (PAXIL) 30 mgTake 30 mg by mouth once daily.ASPIRIN (ASPIR-81 ORAL) 81 mgTake 81 mg by mouth once daily.ibuprofen (MOTRIN) 200-600 mgTake 200-600 mg by mouth once daily as needed for Pain.LACTOBACILLUS ACIDOPHILUS (PROBIOTIC ACIDOPHILUS ORAL) 2 tabletsTake 2 tablets by mouth once daily.RABEprazole (ACIPHEX) 20 mgTake 20 mg by mouth once daily.simvastatin (ZOCOR) 20 mgTake 20 mg by mouth once daily.Qty: 90 tablet Refills: 3lisinopril (ZESTRIL, PRINIVIL) 5 mgTake 5 mg by mouth once daily.Qty: 30 tablet Refills: 1all physician services, admit and discharge were performed on the samedate of service.SIGNATURE: Homer Castaneda MD PAGER/CONTACT #:DATE: August 14, 2016TIME: 5:27 PM Normal [facility] Comp Metabolic Panelon 08-14 Alanine aminotransferase (ALT) 26 U/L Normal 7-38 [facility] Albumin 4.0 g/dL Normal 3.9-4.9 [facility] Alkaline phosphatase (ALP) 56 U/L Normal 32-117 [facility] Anion gap 13 mmol/L Normal 9-18 [facility] Aspartate aminotransferase (AST) 19 U/L Normal 13-35 [facility] Bilirubin (total) 0.3 mg/dL Normal 0.2-1.3 [facility] Calcium 8.8 mg/dL Normal 8.6-10.0 [facility] Chloride 99 mmol/L Normal 97-105 [facility] CO2 26 mmol/L Normal 22-30 [facility] Creatinine 0.95 mg/dL Normal 0.58-0.96 [facility] eGFR (non-black) mL/min/{1.73_m2} [facility] Comment on above: Result Comment: eGFR (Estimated GFR) Units of measure: mL/min/1.73 meters squaredeGFR is derived from the reexpressed MDRD Study equation using the following parameters: serum creatinine, age, gender and race. The creatinine assay has been calibrated to be traceable to IDMS.An eGFR <60 mL/min/1.73m2 for >3 months is consistent with chronic kidney disease. Refer to KDOQI guidelines for clinical interpretation.In patients with unstable renal function, e.g. those with acute kidney injury, the eGFR may not accurately reflect actual GFR. Glucose mass conc 126 mg/dL High 74-99 [facility] Comment on above: Result Comment: The [place] Diabetes Association (ADA) provides guidance for cutoff values for fasting glucose and random glucose. The ADA defines fasting as no caloric intake for at least 8 hours. Fasting plasma glucose results between 100 to 125 mg/dL indicate increased risk for diabetes (prediabetes).Fasting plasma glucose results greater than or equal to 126 mg/dL meet the criteria for diagnosis of diabetes. In the absence of unequivocal hyperglycemia, results should be confirmed by repeat testing. In a patient with classic symptoms of hyperglycemia or hyperglycemic crisis, random plasma glucose results greater than or equal to 200 mg/dL meet the criteria for diagnosis of diabetes.Reference: Standards of Medical Care in Diabetes 2016, [place] [employer] Association. Diabetes Care. 2016.39(Suppl 1). Potassium molar conc 3.9 mmol/L Normal 3.7-5.1 [facility] Protein 6.2 g/dL Low 6.3-8.0 [facility] Sodium 138 mmol/L Normal 136-144 [facility] Urea nitrogen 24 mg/dL High 7-21 [facility] ED NOTEon 08-14-2016 ED NOTE HNO ID: [id number] thor: Aria (Rn) ANDREA Magañaervice: (none)Author Type: Registered NurseType: ED NotesFiled: 08/14/2016 10:11 AMNote Text:Report given to ange gayle . Skin is pink warm and dry. Respirations areeven and easy GCS=15. Sinus per monitor denies pain Lungs sounds clear.ABD nd +BS. 0 edema. IV site grade 0. . Care released to transport foradmission. Pt relays to transport that she does NOT want to be admittedto the hospital. Educated on chest pains and cardiac enzymes and leavingAMA. Dr Rao aware and bedside with pt, Normal [facility] ED NOTE HNO ID: [id number] thor: Tyrone (Rn) Sofia Chandlerice: (none)Author Type: Registered NurseType: ED NotesFiled: 08/14/2016 8:09 AMNote Text:Patient states onset of mid sternal chest pain this am at 0730 at workwhile talking on the phone . Pain radiates to left jaw and arm. Patientstates 7/10 pressure pain. Denies sob. [facility] ED PROV NOTEon 08-14-2016 ED PROV NOTE HNO ID: [id number] thor: Philip Rao III, MDService: (none)Author Type: PhysicianType: ED Provider NotesFiled: 08/14/2016 3:21 PMNote Text:ED Provider NotePatient Name: Carmel Ordonez: [id number] DATE: 08/14/16HistoryPatient presents with:Chest PainHPIThis is a 56-year-old female presents for complaints of midsternal chestpain which started this a.m. at 7:30 in the morning while talking on thephone. Patient reports that this radiates to the left arm in jaw. She isnever had similar pain like this before. She reports the pain is 7 out of10 and is a all, achy pressure. She reports that she has been diagnosedwith Calles's esophagus but no established coronary artery diseasehistory. She reports this is not like her GERD that she's had in thepast. Unsure of the last time she had a stress test.PAST MEDICAL HISTORYDiagnosis Date- Calles's esophagus- Diverticulitis- Hemorrhoids- Hiatal herniaPAST SURGICAL HISTORYNo date: DELIVERY ONLY Comment: , low pmaucxhb86/2016: COLONOSCOPY Comment: lymphocytic colitis07/11/03: COLPOSCOPY (VAGINOSCOPY) Comment: Colposcopy08/18: HYSTERECTOMY HX09/18: INGUINAL HERNIA REPAIR HX Comment: lap IVONNE LIHNo date: PAST SURGICAL HISTORY OF Comment: uterine fibroid07/11/03: PAST SURGICAL HISTORY OF Comment: cervical biopsy wnl Dr. Haynes06/18: SMALL BOWEL Comment: lap small bowel resection04/19: UNL LAPAR WEDGE RESECTION SIGM COLON Comment: lap sigmoid resectionFAMILY HISTORY Ischemic Heart Disease Father Comment: mi 52 Ischemic Heart Disease Mother Comment: mi 50 or 59? 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 Negative for activity change,appetite change, chills and fever.HENT: Negative for congestion, dental problem, hearing loss, mouth sores,tinnitus, trouble swallowing and voice change.Eyes: Negative for photophobia and visual disturbance.Respiratory: Positive for chest tightness. Negative for apnea, cough,choking and shortness of breath.Cardiovascular: Positive for chest pain. Negative for leg swelling.Gastrointestinal: Negative for abdominal distention, abdominal pain, analbleeding and diarrhea.Endocrine: Negative for polyphagia and polyuria.Genitourinary: Negative for decreased urine volume, difficulty urinatingand menstrual problem.Musculoskeletal: Negative for arthralgias and back pain.Skin: Negative for color change and pallor.Neurological: Positive for light-headedness. Negative for dizziness,seizures, syncope and headaches.Psychiatric/Behavi oral: Negative for agitation and behavioral problems.Physical ExamBP 126/82 Pulse 78 Temp (Src) 98.2 (Oral) Resp 18 Ht 5' 5 (1.65m) Wt 190 lb 0.6 oz (86.2kg) SpO2 99% BMI 31.62 kg/(m2).Physical ExamConstitutional: She is oriented to person, place, and time. No distress.HENT:Head: Normocephalic and atraumatic.Right Ear: External ear normal.Left Ear: External ear normal.Mouth/Throat: No oropharyngeal exudate.Eyes: Pupils are equal, round, and reactive to light. Right eye exhibitsno discharge. Left eye exhibits no discharge.Neck: Normal range of motion. No JVD present. No tracheal deviationpresent. No thyromegaly present.Cardiovascular: Normal rate, regular rhythm and normal heart sounds. Examreveals no gallop and no friction rub.No murmur heard.Pulmonary/Chest: Effort normal. No stridor. No respiratory distress. Shehas no wheezes. She has no rales.Abdominal: Soft. She exhibits no distension. There is no tenderness. Thereis no rebound.Musculoskeletal: She exhibits no edema, tenderness or deformity.Neurological: She is alert and oriented to person, place, and time. Shehas normal reflexes. No cranial nerve deficit. Coordination normal.Skin: Skin is warm. No rash noted. She is not diaphoretic. No erythema.Nursing note and vitals reviewed.Diagnostic TestingED Labs Ordered and ReviewedCBC + AUTO DIFF (AV,EU,FV,HL,JUDY,MM,SP) - Abnormal; Notable for thefollowing: Result Value Ref Range RBC 3.89 (*) 3.90 - 5.20 m/uL MPV 8.8 (*) 9.0 - 12.7 fL All other components within normal limitsCOMPREHENSIVE METABOLIC PANEL (AV,EU,FV,HL,JUDY,MM,SP) - Abnormal; Notablefor the following: Protein, Total 6.2 (*) 6.3 - 8.0 g/dL Glucose 126 (*) 74 - 99 mg/dL BUN 24 (*) 7 - 21 mg/dL All other components within normal limitsMAGNESIUM BLOOD (AV,EU,FV,HL,JUDY,MM,SP)TROPON IN T (AV,EU,FV,HL,JUDY,MM,SP)Proced uresMedical Decision Making / ED CourseED CourseEncounter Diagnosis ICD-10-CM1. Other chest pain R07.892. 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 Essential hypertension I104. Hypercholesteremia E78.12Kwpr3 year old female presents to the ED with chest pain.EKG interpreted: Ventricular rate 78. QRS duration 82. QTC 437. Noobvious ST elevation. No obvious ST depression. Clinical interpretationnonspecific EKG.Differential Diagnosis includes but is not limited to: ACS vs. Sarcoidosisvs. Pleuritis vs. COPD vs. Pulmonary HTN vs. GERD vs. Pericarditis vs.pain vs. Esophagitis vs. Rib pain vs. PE vs. Dissection vs. Panic attackvs. Trauma vs. ZosterPlan: labs, imaging, symptom control, [id number]-[id number]: Patient's pain improved with nitroglycerin here. Iscurrently a 0 out of 10. Troponin negative. Labs otherwise unremarkable. Certainly could be esophageal spasm but need to rule the possibility of acardiac event with further testing. All labs and imaging werepersonally reviewed by myself.Clinical suspicion for dissection low.Philip Rao III, MD08/14/16 1521 Normal [facility] HISTORY PHYSICALon HISTORY PHYSICAL HNO ID: [id number] thor: Homer Metzger: [facility] MedicineAuthor Type: PhysicianType: HANDPFiled: 08/14/2016 11:44 AMNote Text:[facility] MEDICINEHISTORY AND PHYSICAL EXAMSERVICE DATE: 08/14/2016SERVICE TIME: 11:42 AMPrimary Care Physician: Joshua Gamboa MDNIGHT AND WEEKEND COVERAGE:Days: [phone], please page me for patient issues.SUBJECTIVECHIEF COMPLAINT: chest painHPI: This is a 56 year old female who presents with sx of chest painradiating to neck. Had recent dilation of esoph due to long standing hxof Barretts. No other associated sx with the chest pain. Does have a famhx.PAST MEDICAL HISTORYDiagnosis Date- Calles's esophagus- Diverticulitis- Hemorrhoids- Hiatal herniaPAST SURGICAL HISTORYNo date: DELIVERY ONLY Comment: , low ssdljvyx89/2016: COLONOSCOPY Comment: lymphocytic colitis07/11/03: COLPOSCOPY (VAGINOSCOPY) Comment: Colposcopy08/18: HYSTERECTOMY HX8: INGUINAL HERNIA REPAIR HX Comment: lap IVONNE LIHNo date: PAST SURGICAL HISTORY OF Comment: uterine fibroid07/11/03: PAST SURGICAL HISTORY OF Comment: cervical biopsy wnl Dr. Haynes06/18: SMALL BOWEL Comment: lap small bowel resection04/19: UNL LAPAR WEDGE RESECTION SIGM COLON Comment: lap sigmoid resectionFAMILY HISTORY Ischemic Heart Disease Father Comment: mi 52 Ischemic Heart Disease Mother Comment: mi 50 or 59? Thyroid Mother graves [OTHER] BrotherSocial HistorySubstance Use Topics- Smoking status: Never Smoker- Smokeless tobacco: Never Used- Alcohol use 10.5 oz/week 7 Cans of Beer (12oz) per week Comment: 1 light beer/day (7 beers/day - max)MEDICATIONS: ReviewedALLERGIESAllergen Reactions- Darvocet A500 [Prop* Rash- Doxycycline Unknown- Propoxyphene- Sulfa (Sulfonamide * UnknownREVIEW OF SYSTEM:GENERAL: No weight loss, malaise or feversRESPIRATORY: Negative for cough, hemoptysis, wheezing, COPD, dyspnea orshortness of breathCARDIOVASCULAR: See HPIGI: No nausea, vomiting, or diarrheaGU: No history of dysuria, frequency or incontinenceMUSCULOSKELETAL: Negative for joint pain or swelling, back pain or musclepainOBJECTIVEPHYSICAL EXAM: BP 126/82 Pulse 78 Temp (Src) 98.2 (Oral) Resp 18 Ht 5' 5 (1.65m) Wt 190 lb 0.6 oz (86.2kg) SpO2 99% BMI 31.62kg/(m2).GENERAL: Alert, no distress, cooperativeLUNGS: Lungs clear to auscultation, Good diaphragmatic excursionCARDIAC: Normal S1 and S2; no rubs, murmurs, or gallopsABDOMEN: Abdomen soft, non-tender, BS normal, No masses or organomegalyEXTREMITIES: Extremities normal, no deformities, edema, clubbing or skindiscoloration. Good capillary refill., No ulcersThe remainder of the physical exam is noncontributory.DATA:Diagnos tic tests reviewed for today's visit:Most recent labs and imaging results.ASSESSMENT/PLANPrinc ipal Problem: Chest pain POA: Yes Assessment AND Plan: cycle CE, tele, EKGsActive Problems: Calles esophagus POA: Yes Assessment AND Plan: recent dilation as outpatient Essential hypertension POA: Yes Assessment AND Plan: cont meds Hypercholesteremia POA: Yes Assessment AND Plan: cont statinVTE Prophylaxis: Other bilat knee compressionDisposition: HomePlan of care discussed with: Patient and RNSIGNATURE: Homer Castaneda MD PATIENT NAME: Carmel DobsonATE: August 14, 2016 : 11:42 AM PAGER/CONTACT #: [id number] Normal [facility] Magnesiumon 08-14-2016 Magnesium 2.1 mg/dL Normal 1.7-2.3 [facility] NURSING PROGon 08-14-2016 NURSING PROG HNO ID: [id number] thor: Melissa (Rn) Sofia De Los Santosice: (none)Author Type: Registered NurseType: Nursing Progress NoteFiled: 08/14/2016 7:23 PMNote Text: Nursing Progress NotePatient Name: Carmel JohnsN: [id number] Location: [place] [address]/[id number] ___Daily Note: Patient discharged to home, discussed dischargeinstructions/medica tions/ and follow up appts with pt. Pt denies any sob,dizziness, or chest pain. Pt will follow up with PCP within the next week.Discharge paperwork signed by pt, and left unit at 1918. Pt refusedwheelchair, ambulated well independently.This note was completed by: Melissa De Los Santos RN [facility] NURSING PROG HNO ID: [id number] thor: Melissa (Rn) Adam De Los Santos: (none)Author Type: Registered NurseType: Nursing Progress NoteFiled: 08/14/2016 10:59 AMNote Text: Nursing Progress NotePatient Name: Carmel ThomasonJonoN: [id number] Location: [id number]/MP-[id number] ___Daily Note: Patient arrived onto unit via wheelchair from ER at 1041. Ptis alert and oriented x 3, states chest pressure is a 2/10, pressure tojaw/L arm is 1/10, pt states she does have a headache since given Nitro.Pt states she had esophogeal dilation and biopsies obtained/performed on07/28/16.This note was completed by: Melissa De Los Santos RN [facility] PLAN OF CAREon 08-14-2016 PLAN OF CARE HNO ID: [id number] thor: Delma Waldrop (Pharmacist)Service: PharmacyAuthor Type: PharmacistType: Plan of CareFiled: 08/14/2016 11:44 AMNote Text:MEDICATION HISTORY AND MEDICATION RECONCILIATIONPatient Name:.Carmel Josue NatN: [id number]: 2Source of history:Patient: Reliability of source: Appears mostlyreliable, clearly identified: Medication name, Medication dose,Medication route, Medication frequency and Timing of last dose with theexception of Aciphex and Pharmacy records: [phone] Nonadherence Identified: No barriers notedThe above information represents the best possible medication history: YesReconciliation completed? Yes Discussed with LIP, plans to add aspirinand paroxetine based on updated medication historyAdditional comments:Patient denies other OTCs, herbal products, supplements (see below)Medications Added:Rabeprazole, prednisone, probiotic, aspirin, ibuprofen, and paroxetineMedications Discontinued (Reason):Duloxetine (stopped due to side effects) and pantoprazole (therapy changedby physician)Current Short-Term Medications:Prednisone (patient has 9 more days of therapy)Allergies: ALLERGIESAllergen Reactions- Darvocet A500 [Prop* Rash- Doxycycline Unknown- Propoxyphene- Sulfa (Sulfonamide * UnknownPreferred Pharmacy: [facility] 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 08/14/2016at 0900 YesASPIRIN (ASPIR-81 ORAL) Take 81 mg by mouth once daily. 08/13/2016 at 0900Yesibuprofen (ADVIL) 200 mg tablet Take 200-600 mg by mouth once daily asneeded for Pain. Unknown at Unknown time YesLACTOBACILLUS ACIDOPHILUS (PROBIOTIC ACIDOPHILUS ORAL) Take 2 tablets bymouth once daily. 08/13/2016 at 0900 YesRABEprazole (ACIPHEX) 20 mg tablet Take 20 mg by mouth once daily.08/14/2016 at 0600 Yessimvastatin (ZOCOR) 20 mg tablet Take 1 tablet by mouth once daily.08/13/2016 at 2100 Yeslisinopril (PRINIVIL) 5 mg tablet Take 1 tablet by mouth once daily.08/14/2016 at 0600 YesSid Cardona 2016 11:36 AM Normal [facility] PROGRESSon 08-14-2016 PROGRESS HNO ID: [id number] thor: Anna Oh (Rt): RadiologyAuthor Type: TechnicianType: Progress NotesFiled: 08/14/2016 8:58 AMNote Text: Radiology Service Progress NotePATIENT NAME: Carmel JohnsN: [id number] OF SERVICE: August 14, 2016TIME: 8:57 AMPATIENT IDENTITY VERIFICATION COMPLETED USING TWO (2) METHODS: Patientconfirmed name verbally and Date of .PATIENT GENDER DATA: Female. status: : NoBreastfeeding status: NO.PATIENT RELEVANT IMPLANT DATA REVIEWED: Not ApplicableRADIOLOGY DEPARTMENT: General X-ray: Exam(s) Completed: Chest X-RayportPERIPHERAL IV DATA: Not applicableSIGNED BY: Minh Yeboah 2016 8:57 AM [facility] Troponin Ton 08-14-2016 Troponin T.cardiac mass conc ug/L Normal 0.000-0.[address] [place] [address] Troponin T.cardiac mass conc ug/L Normal 0.000-0.02 9 [facility] Troponin T.cardiac mass conc ug/L Normal 0.000-0.02 9 [facility] XR CHEST AP/PA 1V PORTon XR CHEST AP/PA 1V PORT * * *Final Report* * *DATE OF EXAM: Aug 14 2016 8:56AM VHX [id number] - XR CHEST AP/PA 1V PORT / REASON: Chest pain * * * * Physician Interpretation * * * * EXAMINATION: CHEST RADIOGRAPH (PORTABLE SINGLE VIEW AP)Exam Date/Time: 08/14/2016 8:56 AMIndication: Chest painM: XCP_4Comparison: There are no similar previous exams available for comparison.RESULT:Lines, tubes, and devices: None.Lungs and pleura: The lungs are free of airspace opacities. No pleural effusion or pneumothorax is seen.Cardiomediastinal silhouette: Stable cardiomediastinal silhouette.IMPRESSION:No acute process seenTranscriptionist: PSCHemalatha Transcribe Date/Time: Aug 14 2016 8:56ADictated by : SARANYA DALE MDThis examination was interpreted and the report reviewed and electronically signed by: SARANYA DALE MD on Aug 14 2016 9:02AM EST Normal [facility] Vital Signs Date Time Vital Sign Value Performing Clinician Facility 06-14-2024 13:21-0400 Body height 167.64 cm Pretty Bucio MD Work Phone: [facility] 06-14-2024 13:21-0400 Body mass index (BMI) [Ratio] 33.1 kg/m2 Pretty Bucio MD Work Phone: [facility] 06-14-2024 13:21-0400 Body weight 93.15 kg Pretty Bucio MD Work Phone: [facility] 03-20-2023 16:32-0500 Body height 167.64 cm [facility] 03-20-2023 16:32-0500 Body mass index (BMI) [Ratio] 30.4 kg/m2 [facility] 03-20-2023 16:32-0500 Body temperature 98.2 [degF] [facility] 03-20-2023 16:32-0500 Body weight 85.72 kg [facility] 03-20-2023 16:32-0500 Diastolic blood pressure 98 mm[Hg] [facility] 03-20-2023 16:32-0500 Heart rate 101 /min [facility] 03-20-2023 16:32-0500 Respiratory rate 16 /min [facility] 03-20-2023 16:32-0500 SaO2% (BldA) [Mass fraction] 97 % [facility] 03-20-2023 16:32-0500 Systolic blood pressure 151 mm[Hg] [facility] 07-29-2022 08:13-0400 Body height 166.4 cm Luisito Brizuela MD Work Phone: [facility] 07-29-2022 08:13-0400 Body temperature 97.59 [degF] Luisito Brizuela MD Work Phone: [facility] 07-29-2022 08:13-0400 Body weight 81.74 kg Luisito Brizuela MD Work Phone: [facility] 07-29-2022 08:13-0400 Diastolic blood pressure 80 mm[Hg] Luisito Brizuela MD Work Phone: [facility] 07-29-2022 08:13-0400 Heart rate 83 /min Luisito Brizuela MD Work Phone: [facility] 07-29-2022 08:13-0400 SaO2% (BldA) [Mass fraction] 99 % Luisito Brizuela MD Work Phone: [facility] 07-29-2022 08:13-0400 Systolic blood pressure 126 mm[Hg] Luisito Brizuela MD Work Phone: [facility] 07-10-2021 17:42-0400 Body height 162.56 cm Bruce Keen MD Work Phone: [facility] Work Phone: 07-10-2021 17:42-0400 Body mass index (BMI) [Ratio] 23.84 kg/m2 Bruce Keen MD Work Phone: [facility] Work Phone: 07-10-2021 17:42-0400 Body surface area Derived from formula 1.68 m2 Bruce Keen MD Work Phone: [facility] Work Phone: 07-10-2021 17:42-0400 Body temperature 97.3 [degF] Bruce Keen MD Work Phone: [facility] Work Phone: 07-10-2021 17:42-0400 Body weight 63 kg Bruce Keen MD Work Phone: [facility] Work Phone: 07-10-2021 17:42-0400 Diastolic blood pressure 82 mm[Hg] Bruce Keen MD Work Phone: [facility] Work Phone: 07-10-2021 17:42-0400 Heart rate 63 /min Bruce Keen MD Work Phone: [facility] Work Phone: 07-10-2021 17:42-0400 Respiratory rate 16 /min Bruce Keen MD Work Phone: [facility] Work Phone: 07-10-2021 17:42-0400 SaO2% (BldA) [Mass fraction] 97 % Bruce Keen MD Work Phone: [facility] Work Phone: 07-10-2021 17:42-0400 Systolic blood pressure 118 mm[Hg] Bruce Keen MD Work Phone: [facility] Work Phone: 07-10-2021 17:42-0400 5 1 Bruce Keen MD Work Phone: [facility] Work Phone: Comment on above: Pain[employer] Encounters Encounter Date Encounter Type Care Provider Facility Start: 07-26-2024 ambulatory Chalon Rupinder Facility:[facility] Start: 07-02-2024 ambulatory Chalon Rupinder Facility:[facility] Start: 06-27-2024 ambulatory Pretty Bucio Facility:[facility] Start: 06-14-2024 End: 06-14-2024 Patient encounter procedure Elisabeth GALINDO -[facility] Work Phone: Start: 06-14-2024 End: 06-14-2024 ambulatory Pretty Bucio Facility:[facility] Start: 06-14-2024 End: 06-14-2024 ambulatory Pretty Bucio MD Work Phone: [facility] Work Phone: Start: 06-14-2024 End: 06-14-[address] Pretty Bucio MD -Outpatient [facility] Densitometry Work Phone: Start: 06-14-2024 End: 06-14-2024 ambulatory Pretty Bucio Facility:[facility] Start: 05-26-2024 End: 05-26-2024 ambulatory Pretty Bucio MD Work Phone: [facility] Work Phone: Start: 05-26-2024 End: 05-26-[address] Pretty Bucio MD -Laboratory, [facility] Start: 05-26-2024 End: 05-26-2024 ambulatory Pretty Bucio Facility:[facility] Start: 01-21-2024 ambulatory BIANCA ALMANZAR Facilit y:[facility] Start: 01-01-2024 End: 01-01-2024 ambulatory BIANCA ALMANZAR Facility:[facility] Start: 12-31-2023 End: 12-31-2023 ambulatory Pretty Bucio Facility:[facility] Start: 08-11-2023 End: 08-11-2023 ambulatory Pretty Bucio Facility:[facility] Start: 03-20-2023 End: 03-20-2023 Emergency department patient visit [facility]-Emergency Department Work Phone: Start: 08-07-2022 Telephone encounter Luisito desai MD Work Phone: General Surgery Comment on above: Results Start: 08-04-2022 End: 08-05-2022 ambulatory BETO Josue KHLOE Facility:[facility] Start: 08-04-2022 End: 08-04-2022 Subsequent hospital visit by physician Ct [facility] Wstr (I-Stat) Work Phone: Cat Scan Comment on above: Left inguinal hernia [K40.90] Start: 07-29-2022 End: 07-30-2022 ambulatory LUISITO BRIZUELA Facility:[facility] Start: 07-29-2022 End: 07-29-2022 Patient encounter procedure Luisito Brizuela MD Work Phone: General Surgery Comment on above: Left inguinal hernia (Primary Dx); Left groin pain Start: 03-31-2022 Refill Shyanne Sparks PA-C Work Phone: [facility] Start: 07-10-2021 Office outpatient ne w 30 minutes Bruce Keen MD Work Phone: [facility] Work Phone: Start: 08-14-2016 End: 08-14-[address] [facility] Procedures Date Procedure Procedure Detail Performing Clinician Start: 06-14-2024 X-ray of cervical spine Pretty Bucio MD Work Phone: Start: 06-14-2024 X-ray of lumbosacral spine Pretty Bucio MD Work Phone: Start: 06-14-2024 Dual energy X-ray absorptiometry Pretty Bucio MD Work Phone: Start: 05-26-2024 Plain x-ray of pelvi s and lower extremity Pretty Bucio MD Work Phone: Start: 05-26-2024 X-ray of lumbar spin e, two or three views Pretty Bucio MD Work Phone: Start: 05-26-2024 Vitamin D, 25-hydrox y measurement Pretty Bucio MD Work Phone: Comment on above: Vitamin D StatusDefi ciency: <20 ng/mL (50nmol/L)Insufficiency: 20-30 ng/mL (50-75 nmol/L)Sufficiency: 30-100 ng/mL (75-250 nmol/L)Toxicity: >100 ng/mL (>250 nmol/L) Start: 03-20-2023 Plain x-ray of pelvi s and lower extremity Start: 08-04-2022 Ct abdomen & pelvis w/contrast material Luisito Brizuela MD Work Phone: Start: 07-05-2020 Lipid 1996 panel - S stacy or Plasma Shyanne Sparks PA-C Work Phone: Start: 07-05-2020 Mammography Shyanne pulido PA-C Work Phone: Start: 02-25-2016 Lipid 1996 panel - S stacy or Plasma Ct (I-Stat) Work Phone: Start: 02-06-2016 Mammography Luisito scott MD Work Phone: Start: 12-24-2015 Colonoscopy Luisito scott MD Work Phone: Plan of Treatment Date Care Activity Detail Author Start: 07-05-2025 Lipid panel Lipid Panel [facility] Start: 06-14-2024 Patient referral [facility] Work Phone: Start: 08-17-2023 DIABETES SCREEN DIABETES SCREEN [facility] Start: 08-17-2023 Diabetes Screening Diabetes Screenin g [facility] Start: 03-20-2023 [facility] Start: 10-10-2022 Covid-19 Vaccine ( season) Covid-19 Vaccine ( season) [facility] Start: 10-10-2022 Influenza vaccination C [facility] Start: 07-29-2022 End: 09-28-2022 CREATININE BLD CREATININE BLD Lab Routine Left inguinal hernia Left groin pain Expected: 07/29/2022, Expires: 09/28/2022 [facility] Work Phone: Comment on above: Expected: 07/29/2022 , Expires: 09/28/2022 Start: 02-09-2022 DEPRESSION ASSESSMENT DEPRESSION ASS ESSMENT [facility] Start: 10-10-2021 Influenza vaccination Influenza Vacc ine (#1) [facility] Start: 07-05-2021 Screening for malign ant neoplasm of breast Mammogram [facility] Start: 2021 RSV Vaccine (1 - 1-d ose 60+ series) RSV Vaccine (1 - 1-dose 60+ series) [facility] Start: 02-24-2021 Lipid 1996 panel - S stacy or Plasma Lipid Screening [facility] Start: 02-24-2021 LIPID SCREEN LIPID SCREEN [facility] Start: 07-27-2020 COVID-19 VACCINE (3 - Booster for Pfizer series) COVID-19 VACCINE (3 - Booster for Pfizer series) [facility] Start: 04-01-2020 Zoster Vaccines (2 of 2) Zoste r Vaccines (2 of 2) [facility] Start: 02-05-2017 Mammography [facility] Start: 12-23-2016 Colonoscopy COLONOSCOPY [facility] Start: 12-23-2016 COLORECTAL CANCER SCREENING COLORECTAL CANCER SCREENING [facility] Start: 04-16-2011 SHINGRIX VACCINE (1 of 2) SHINGRIX VACCINE (1 of 2) [facility] Start: 2006 COLOGUARD (FIT-DNA) COLOGUARD (FIT-D NA) [facility] Start: [address] COLONOGRAPHY [facility] Start: 2006 FECAL OCCULT BLOOD FECAL OCCULT BLOO D [facility] Start: 2006 SIGMOIDOSCOPY SIGMOIDOSCOPY [facility] Start: 04-16-1991 HPV TESTING HPV TESTING [facility] Start: 1982 PAP TESTING PAP TESTING [facility] Start: 1980 DTaP/Tdap/Td Vaccine s (1 - Tdap) DTaP/Tdap/Td Vaccines (1 - Tdap) [facility] Start: 1980 Urine microalbumin profile [facility] Start: 04-16-1979 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 MOHAN DISEASE VISIT ANNUAL PCP TEAM CHRONIC DISEASE VISIT [facility] Start: 04-16-1979 BP CONTROLLED (<130/80) BP CONTROLLE D (<130/80) [facility] Start: 04-16-1979 HEPATITIS C SCREENING HEPATITIS C SC REENING [facility] Start: 04-16-1979 HIV SCREENING HIV SCREENING [facility] Start: 1962 MMR Vaccines (1 of 1 - Standard series) MMR Vaccines (1 of 1 - Standard series) [facility] Start: 1961 Hepatitis B Vaccines (1 of 3 - 3-dose series) Hepatitis B Vaccines (1 of 3 - 3-dose series) [facility] Start: 1961 HIV screening HIV Screening [facility] Start: 1960 Screening for malign ant neoplasm of colon [facility] End: 08-28-2023 Ct abdomen & pelvis w/contrast material CT ABD/PEL W IVCON Radiology Routine Left inguinal hernia Left groin pain 1 Occurrences starting 07/29/2022 until 08/28/2023 [facility] Work Phone: Comment on above: 1 Occurrences starti ng 07/29/2022 until 08/28/2023 MR Lumbar spine [facility] Patient Education ED Hip Strain [facility] Work Phone: Patient referral [facility] Work Phone: [facility] Immunizations Immunization Date Immunization Notes Care Provider Fa [facility] 02-05-2020 zoster vaccine recombinant Shyanne Sparks PA-C Work Phone: [facility] 02-19-2016 influenza, seasonal, injectable Luisito Brizuela MD Work Phone: [facility] 02-19-2016 influenza virus vacc ine, unspecified formulation Shyanne Sparks PA-C Work Phone: [facility] Payers Date Payer Category Payer Self-pay 2023 Unknown [id number] 2021 Private Health Insurance [id number] 2021 Private Health Insurance [id number] Unknown [id number] Unknown [id number] Unknown [id number] Unknown [id number] Unknown [id number] 462 Unknown [id number] 462 Unknown [id number] Unknown [id number] 462 Unknown [id number] 462 Unknown [id number] 462 Unknown [id number] Unknown [id number] 462 Social History Date Type Detail Facility Start: 07-29-2022 End: 08-04-2022 Never smoker Never smoker [facility] Work Phone: Start: 07-29-2022 End: 03-20-2023 Tobacco smoking status NHIS Never smoked tobacco [facility] Start: 07-29-2022 Tobacco use and exposure Smokeless tobacco non-user [facility] Start: 07-29-2022 Alcohol intake Current drinke r of alcohol (finding) [facility] Start: 04-04-2015 Alcohol Comment 1 light beer/d ay (7 beers/day - max) [facility] Start: 1960 Sex Assigned At Not on file [facility] Start: 07-29-2022 End: 08-04-2022 Tobacco use panel [facility] National Score (1-100), lower number is lower risk 65 [facility] Start: 03-20-2023 Tobacco smoking stat us NHIS Unknown if ever smoked [facility] Start: 1960 Sex Assigned At Female [facility] Start: 01-28-2022 Alcohol intake Lifetime non-d jm (finding) [facility] Start: 06-01-2024 Sex Female (finding) [facility] Functional Status Date Assessment Result Facility 07-10-2021 PHQ-9 [id number] In Remission (0-4 ) [facility] Work Phone: Clinical Notes 04-04-2014 to 06-14-2024 Note Date & Type Note Facility 06-14-2024 Evaluation note Diagnosis Onset Date Resolution Degenerative disc disease (DDD) of lumbar region with discogenic back pain acute June 14, 2024 1: 18pm Lumbar radiculopathy acute June 14, 2024 1:18pm [facility] Work Phone: 1(282) 867-247204-17-2025 Radiology Diagnostic study note [facility] Imaging Services [address] [place], [place] [address] Lumbar Spine 2 or 3 Views MR#: [id number] Acct: [id number] Name: CARMEL GUILLEN Rep #: [id number] : 1960 F 64 From: Gloria Alejandro MD PCP: Dr. Pretty Bucio MD Status: REG CL I Study:Lumbar Spine 2 or 3 Views Date of Exam: 05/26/24 Exam# [id number] Ordering Dr: Mariela Bucio MD PROCEDURE: LUMBAR SPINE 2 OR 3 VIEWS 05/26/2024 REASON FOR EXAM: NEW PAIN WITH SCIATICA TECHNIQUE: 3 view(s) of the lumbar spine COMPARISON: None FINDINGS: Vertebrae: Pain vertebral body heights without findings. Discs: Advanced multilevel disc space narrowing with endplate osteophytes. Alignment: [id number] lumbar levoscoliosis. Mild leftward subluxation of L3 on L4. Facet arthrosis increases from superior to inferior. RAD/Lumbar Spine 2 or 3 Views IMPRESSION: ADVANCED DEGENERATIVE CHANGES OF THE LUMBAR SPINE. Reading Location: [facility] CC: Dr. Pretty Bucio MD ~ Vrt Mechanic: Signed [facility]04-17-2025 Radiology Diagnostic study note [facility] Imaging Services [address] [facility] [place] [id number] HIP, UNI W/ Pelvis 2-3 Views MR#: [id number] Acct: [id number] Name: CARMEL GUILLEN Rep #: [id number] : 1960 F 64 From: Brian Castrejon MD PCP: Dr. Pretty Bucio MD Status: REG CL I Study:HIP, UNI W/ Pelvis 2-3 Views Date of Ex am: 05/26/24 Exam# [id number] Ordering Dr: Mariela Bucio MD PROCEDURE: HIP, UNI W/ PELVIS 2-3 VIEWS 05/26/2024 REASON FOR EXAM: PAIN, NEW TECHNIQUE: Three views of the left hip COMPARISON: None FINDINGS: Bones: Unremarkable. Joints: Mild degree of left hip joint space narrowing. Sclerosis of the symphysis pubis. Soft tissues: Calcified phleboliths in the left hemipelvis. Other: RAD/HIP, UNI W/ Pelvis 2-3 Views IMPRESSION: Mild degree of joint space narrowing of the left hip joint as well as narrowing and sclerosis of the symphysis pubis. Reading Location: [facility] CC: Dr. Pretty Bucio MD ~ Vrt Mechanic: Signed [facility]06-29-2023 Miscellaneous Notes* Telephone Encounter - Georgie Calvin RN - 08/07/2022 10:54 AM EDT Tried reaching out to patient to schedule follow up appointment with Dr. Brizuela for tomorrow 08/08/[address] images. No answer and unable to leave voicemail message.Georgie Calvin RN * Telephone Encounter - Leida Mancia - 08/07/2022 10:02 AM EDT Pt calling for CT results from 08/04. Pt states that her symptoms are worse. She can barely walk. Not sure if it is muscular skeletal or if something else is going on. Results still state in process. I reached out to radiology and they are checking on the status of the final results. Leida Mancia documented in this [facility] [place] NoteHNO ID: [id number] Author: RT Lidia(R) Service: ? Author Type: Candy Catcher Type: Progress Notes Filed: 08/04/2022 4:13 PM Note Text: Radiology Service Progress Note DATE OF SERVICE: August 04, 2022 TIME: 4:12 PM PATIENT IDENTITY VERIFICATION COMPLETED USING TWO (2) STANDARD IDENTIFIERS: Name and Date of confirmed by patient verbally. FALL SCREENING: Has the patient had 2 falls in the last year or 1 fall with injury or currently using an Ambulatory Assistive Device (Walker, Cane, Wheelchair, Crutches, etc.)? No PATIENT GENDER DATA: Female. status: : No status: NO. PATIENT RELEVANT IMPLANT DATA REVIEWED: Yes ALLERGIES: Reviewed and unchanged CONTRAST ALLERGY: NO. EXAM: CT -CONTRAST INDUCED NEPHROPATHY RISK FACTORS: Patient age > 60 years CREATININE: Creatinine Date Value Ref Range Status 08/04/2022 0.86 0.58 - 0.96 mg/dL Final 08/16/2020 0.89 0.58 - 0.96 mg/dL Final 12/27/2019 0.89 0.58 - 0.96 mg/dL Final Estimated Glomerular Filtration Rate Date Value Ref Range Status 08/04/2022 77 >=60 mL/min/1.73m? Final Comment: Estimated Glomerular Filtration Rate (eGFR) is calculated using the 2020 CKD-EPI creatinine equation. This equation utilizes serum creatinine, sex, and age as parameters. The creatinine assay has traceable calibration to isotope dilution-mass spectrometry. Refer to KDIGO guidelines for clinical interpretation. In patients with unstable renal function, e.g. those with acute kidney injury, the eGFR may not accurately reflect actual GFR. eGFR- Date Value Ref Range Status 08/16/2020 >60 Final P.O.C.T. RESULTS: POC done: Yes, See Lab Tab August 04, 2022 TREATMENT: N/A PERIPHERAL IV DATA: Ambulatory: A peripheral IV was started in the Left antecubital site with a Angio cath: 22 gauge. RADIOLOGY DEPARTMENT: CT; Exam(s) Completed: Abdomen/Pelvis SIGNATURE: RT Dori(R) PATIENT NAME: Carmel Guillen DATE: August 04, 2022 TIME: 4:12 [facility]06-26-2023 History of Present illness Narrative* Princess Morales RT(R) - 08/04/2022 3:00 PM EDT Radiology Service Progress Note DATE OF SERVICE: August 04, 2022 TIME: 4:12 PM PATIENT IDENTITY VERIFICATION COMPLETED USING TWO (2) STANDARD IDENTIFIERS: Name and Date of confirmed by patient verbally. FALL SCREENING: Has the patient had 2 falls in the last year or 1 fall with injury or currently using an Ambulatory Assistive Device (Walker, Cane, Wheelchair, Crutches, etc.)? No PATIENT GENDER DATA: Female. status: : No status: NO. PATIENT RELEVANT IMPLANT DATA REVIEWED: Yes ALLERGIES: Reviewed and unchanged CONTRAST ALLERGY: NO. EXAM: CT -CONTRAST INDUCED NEPHROPATHY RISK FACTORS: Patient age > 60 years CREATININE: Creatinine Date Value Ref Range Status 08/04/2022 0.86 0.58 - 0.96 mg/dL Final 08/16/2020 0.89 0.58 - 0.96 mg/dL Final 12/27/2019 0.89 0.58 - 0.96 mg/dL Final Estimated Glomerular Filtration Rate Date Value Ref Range Status 08/04/2022 77 >=60 mL/min/1.73m Final Comment: Estimated Glomerular Filtration Rate (eGFR) is calculated using the 2020 CKD-EPI creatinine equation. This equation utilizes serum creatinine, sex, and age as parameters. The creatinine assay has traceable calibration to isotope dilution- mass spectrometry. Refer to KDIGO guidelines for clinical interpretation. In patients with unstable renal function, e.g. those with acute kidney injury, the eGFRmay not accurately reflect actual GFR. eGFR- Date Value Ref Range Status 08/16/2020 >60 Final P.O.C.T. RESULTS: POC done: Yes, See Lab Tab August 04, 2022 TREATMENT: N/A PERIPHERAL IV DATA: Ambulatory: A peripheral IV was started in the Left antecubital site with a Angio cath: 22 gauge. RADIOLOGY DEPARTMENT: CT; Exam(s) Completed: Abdomen/Pelvis SIGNATURE: RT Dori(R) PATIENT NAME: Carmel Guillen DATE: August 04, 2022 TIME: 4:12 PM documented in this encounterSelect [facility] [place]23 NoteHNO ID: [id number] Author: Luisito Brizuela MD Service: ? Author Type: Physician Type: Progress Notes Filed: 07/29/2022 9:20 AM Note Text: HISTORY AND PHYSICAL Carmel Josue Wilmer 1960 REFERRING PHYSICIAN: Beto Pressley DO CHIEF COMPLAINT: Consult (Consult possible left inguinal hernia. ) HPI: The patient is a 62 year old female with a complaint of left groin pain. Patient states that she moved into a new house couple months ago and started having some significant pain in the left groin area that has just been persistent she feels that something may be popping in and out. She has had no imaging as of yet. She was seen by her primary care doctor who thought she felt a recurrent hernia. Back in 2007 Dr. Luna had repaired a left inguinal hernia repair laparoscopically with 3D max mesh.. The patient is being seen by me today at the request of Dr. Beto Pressley DO for my opinion and advice regarding Left inguinal hernia (primary encounter diagnosis) Left groin pain. PAST MEDICAL HISTORY Diagnosis Date Calles's esophagus Depression Diverticulitis GERD (gastroesophageal reflux disease) Hemorrhoids Hiatal hernia Inguinal hernia Osteoarthritis of multiple joints PAST SURGICAL HISTORY Procedure Laterality Date DELIVERY ONLY , low cervical COLONOSCOPY 01/2016 lymphocytic colitis COLONOSCOPY 02/01/2015 Dr. Sander Maldonado COLPOSCOPY CERVIX UPPER/ADJACENT VAGINA 07/11/03 Colposcopy EGD 07/28/2016 HYSTERECTOMY HX 08/18 INGUINAL HERNIA REPAIR HX 09/18 lap IVONNE LIH PAST SURGICAL HISTORY OF uterine fibroid PAST SURGICAL HISTORY OF 07/11/[address] Haynes SMALL BOWEL 06/18 lap small bowel resection UNL LAPAR WEDGE RESECTION SIGM COLON 04/19 lap sigmoid resection Current Outpatient Medications Medication Sig escitalopram oxalate (LEXAPRO) 20 mg tablet Take 20 mg by mouth once daily. hydrOXYzine HCl (ATARAX) 50 mg tablet Take 50 mg by mouth three times daily as needed. ibuprofen (MOTRIN) 200 mg tablet Take 200-600 mg by mouth once daily as needed for Pain. iv contrast (will be provided with radiology test) CT ABD/PEL -Inject, intravenously, once for 1 dose.No IV access, insert saline lock prior to the beginning of sedation, infusion, injection of imaging exam. Discontinue saline lock post exam. If Pt. has a central line or IVAD, may access for administration according to line specific nursing protocol. Once exam is complete flush line and de-access according to line specific nursing protocol in the CT contrast administration guidelines link. enteric contrast (will be provided with radiology test) For CT ABD/PEL W IVCON Routine order Administer, As Directed One Time Only, via Oral, Rectal, both Oral and Rectal, Enteric Tube, Stoma or Indwelling Catheter, Enteric Contrast as designated per enteric contrast guidelines metoclopramide HCl (REGLAN) 10 mg tablet Take 1 tablet by mouth four times daily as needed (Nausea or Vomiting). (Patient not taking: Reported on 07/29/2022) ASPIRIN (ASPIR-81 ORAL) Take 81 mg by mouth once daily. (Patient not taking: Reported on 07/29/2022) LACTOBACILLUS ACIDOPHILUS (PROBIOTIC ACIDOPHILUS ORAL) Take 2 tablets by mouth once daily. (Patient not taking: Reported on 07/29/2022) RABEprazole (ACIPHEX) 20 mg tablet Take 20 mg by mouth once daily. (Patient not taking: Reported on 07/29/2022) simvastatin (ZOCOR) 20 mg tablet Take 1 tablet by mouth once daily. (Patient not taking: Reported on 07/29/2022) lisinopril (PRINIVIL) 5 mg tablet Take 1 tablet by mouth once daily. (Patient not taking: Reported on 07/29/2022) No current facility-administered medications for this visit. ALLERGIES: Darvocet A500 [Propoxyphene N-Acetaminophen], Doxycycline, Propoxyphene, and Sulfa (Sulfonamide Antibiotics) PERSONAL HISTORY: Social History Tobacco Use Smoking status: Never Smokeless tobacco: Never Vaping Use Vaping Use: Never used Substance Use Topics Alcohol use: Yes Alcohol/week: 17.5 standard drinks Types: 7 Cans of Beer (12oz) per week Comment: 1 light beer/day (7 beers/day - max) Drug use: No FAMILY HISTORY: FAMILY HISTORY Problem Relation Age of Onset Ischemic Heart Disease Father mi 52 Ischemic Heart Disease Mother mi 50 or 59? Thyroid Mother other (graves) Brother REVIEW OF SYMPTOMS: The review of systems data was entered by the nurse and reviewed by wa Nursing Notes: Vesna Li RN 07/29/2022 8:22 AM Signed REVIEW OF SYSTEMS: General: The patient NOTES fatigue, denies weight loss, NOTES weight gain, denies feeling hot, and denies feelings of cold. Eyes: The patient denies glaucoma, denies eye injury/surgery, wears glasses or contacts. Ear/Nose/Throat: The patient NOTES allergies, denies hayfever, denies ear infections, and denies bloody noses. Cardiovascular: The patient denies chest pain, denies heart disease, denies high blood pressure (more content not included)...[facility]06-20-2023 Nurse Note* Vesna Li RN - 07/29/2022 8:21 AM EDT REVIEW OF SYSTEMS: General: The patient NOTES fatigue, denies weight loss, NOTES weight gain, denies feeling hot, and denies feelings of cold. Eyes: The patient denies glaucoma, denies eye injury/surgery, wears glasses or contacts. Ear/Nose/Throat: The patient NOTES allergies, denies hayfever, denies ear infections, and denies bloody noses. Cardiovascular: The patient denies chest pain, denies heart disease, denies high blood pressure,denies cardiac stent, denies prior heart attack, denies irregular heart beat, denies high cholesterol, denies poor circulation, denies heart failure, other cardiac issues, denies claudication, denies cold feet, denies peripheral arterial stent. Respiratory: The patient denies tuberculosis, denies pneumonia, denies frequent cough, denies pulmonary embolism, denies shortness of breath, and denies coughing up blood. Gastrointestinal: The patient denies difficulty swallowing, NOTES acid reflux, denies ulcers, denies vomiting, denies jaundice/hepatitis, denies gallbladder problems, denies black or tarry stools, NOTES hemorrhoids, denies bleeding from rectum, NOTES diverticulitis, denies constipation, NOTES diarrhea, NOTES loss of stool control, and NOTES hernias. Kidney/Bladder: The patient denies kidney stones, denies urine infections, and denies bloody urine. Skin: The patient denies a history of skin cancer, denies bleeding/changing moles, and denies a history of skin rash. Neurologic: The patient denies a history of epilepsy/convulsions, denies headaches, denies head/spinal injuries, and denies stroke/TIA. Psychiatric: The patient NOTES psychiatric medications, NOTES depression, and denies voices, deniessubstance abuse. Endocrine: The patient denies thyroid disorders, denies diabetes, and denies hormonal problems. Hematologic: The patient denies a history of bruising, denies bleeding, and denies anemia, denies blood clots. Infections: The patient NOTES a history of measles and mumps, denies rheumatic fever, and denies sexually transmitted diseases. Musculoskeletal: The patient denies back pain/injury, denies back problems, denies sciatica, deniesknee/foot trouble, NOTES arthritis, or denies gout. When was patient's last Mammogram screening? Unknown Last Colonoscopy: 2017 Vesna Li RN documented in this encounterSelect [facility] [place]23 History of Present illness Narrative* Luisito Brizuela MD - 07/29/2022 8:16 AM EDT HISTORY AND PHYSICAL Carmel Guillen 1960 REFERRING PHYSICIAN: Beto Pressley DO CHIEF COMPLAINT: Consult (Consult possible left inguinal hernia. ) HPI: The patient is a 62 year old female with a complaint of left groin pain. Patient states that she moved into a new house couple months ago and started having some significant pain in the left groin area that has just been persistent she feels that something may be popping in and out. She has had no imaging as of yet. She was seen by her primary care doctor who thought she felt a recurrent hernia. Back in 2007 Dr. Luna had repaired a left inguinal hernia repair laparoscopically with 3D max mesh.. The patient is being seen by me today at the request of Dr. Beto Pressley DO for my opinion andadvice regarding Left inguinal hernia (primary encounter diagnosis) Left groin pain. PAST MEDICAL HISTORY Diagnosis Date Calles's esophagus Depression Diverticulitis GERD (gastroesophageal reflux disease) Hemorrhoids Hiatal hernia Inguinal hernia Osteoarthritis of multiple joints PAST SURGICAL HISTORY Procedure Laterality Date DELIVERY ONLY , low cervical COLONOSCOPY 01/2016 lymphocytic colitis COLONOSCOPY 02/01/2015 Dr. Sander Maldonado COLPOSCOPY CERVIX UPPER/ADJACENT VAGINA 07/11/03 Colposcopy EGD 07/28/2016 HYSTERECTOMY HX 08/18 INGUINAL HERNIA REPAIR HX 09/18 lap IVONNE LIH PAST SURGICAL HISTORY OF uterine fibroid PAST SURGICAL HISTORY OF 07/11/[address] Haynes SMALL BOWEL 06/18 lap small bowel resection UNL LAPAR WEDGE RESECTION SIGM COLON 04/19 lap sigmoid resection Current Outpatient Medications Medication Sig escitalopram oxalate (LEXAPRO) 20 mg tablet Take 20 mg by mouth once daily. hydrOXYzine HCl (ATARAX) 50 mg tablet Take 50 mg by mouth three times daily as needed. ibuprofen (MOTRIN) 200 mg tablet Take 200-600 mg by mouth once daily as needed for Pain. iv contrast (will be provided with radiology test) CT ABD/PEL -Inject, intravenously, once for 1 dose.No IV access, insert saline lock prior to the beginning of sedation, infusion, injection of imaging exam. Discontinue saline lock post exam. If Pt. has a central line or IVAD, may access for administration according to line specific nursing protocol. Once exam is complete flush line and de-accessaccording to line specific nursing protocol in the CT contrast administration guidelines link. enteric contrast (will be provided with radiology test) For CT ABD/PEL W IVCON Routine order Administer, As Directed One Time Only, via Oral, Rectal, both Oral and Rectal, Enteric Tube, Stoma or Indwelling Catheter, Enteric Contrast as designated per enteric contrast guidelines metoclopramide HCl (REGLAN) 10 mg tablet Take 1 tablet by mouth four times daily as needed (Nausea or Vomiting). (Patient not taking: Reported on 07/29/2022) ASPIRIN (ASPIR-81 ORAL) Take 81 mg by mouth once daily. (Patient not taking: Reported on 07/29/2022) LACTOBACILLUS ACIDOPHILUS (PROBIOTIC ACIDOPHILUS ORAL) Take 2 tablets by mouth once daily. (Patientnot taking: Reported on 07/29/2022) RABEprazole (ACIPHEX) 20 mg tablet Take 20 mg by mouth once daily. (Patient not taking: Reported on07/29/2022) simvastatin (ZOCOR) 20 mg tablet Take 1 tablet by mouth once daily. (Patient not taking: Reported on 07/29/2022) lisinopril (PRINIVIL) 5 mg tablet Take 1 tablet by mouth once daily. (Patient not taking: Reported on 07/29/2022) No current facility-administered medications for this visit. ALLERGIES: Darvocet A500 [Propoxyphene N-Acetaminophen], Doxycycline, Propoxyphene, and Sulfa (Sulfonamide Antibiotics) PERSONAL HISTORY: Social History Tobacco Use Smoking status: Never Smokeless tobacco: Never Vaping Use Vaping Use: Never used Substance Use Topics Alcohol use: Yes Alcohol/week: 17.5 standard drinks Types: 7 Cans of Beer (12oz) per week Comment: 1 light beer/day (7 beers/day - max) Drug use: No FAMILY HISTORY: FAMILY HISTORY Problem Relation Age of Onset Ischemic Heart Disease Father mi 52 Ischemic Heart Disease Mother mi 50 or 59? Thyroid Mother other (graves) Brother REVIEW OF SYMPTOMS: The review of systems data was entered by the nurse and reviewed by wa Nursing Notes: Vesna Li RN 07/29/2022 8:22 AM Signed REVIEW OF SYSTEMS: General: The patient NOTES fatigue, denies weight loss, NOTES weight gain, denies feeling hot, and denies feelings of cold. Eyes: The patient denies glaucoma, denies eye injury/surgery, wears glasses or contacts. Ear/Nose/Throat: The patient NOTES allergies, denies hayfever, denies ear infections, and denies bloody noses. Cardiovascular: The patient denies chest pain, denies heart disease, denies high blood pressure,denies cardiac stent, denies prior heart attack, denies irregular heart beat, denies high cholesterol, denies poor circulation, denies heart failure, other cardiac issues, denies claudication, denies cold feet, denies peripheral arterial stent. Respiratory: The patient denies tuberculosis, denies pneumonia, denies frequent cough, denies pulmonary embolism, denies shortness of breath, and denies coughing up blood. Gastrointestinal: The patient denies difficulty swallowing, NOTES acid reflux, denies ulcers, denies vomiting, denies jaundice/hepatitis, denies gallbladder problems, denies black or tarry stools, NOTES hemorrhoids, denies bleeding from rectum, NOTES diverticulitis, denies constipation, NOTES diarrhea, NOTES loss of stool control, and NOTES hernias. Kidney/Bladder: The patient denies kidney stones, denies urine infections, and denies bloody urine. Skin: The patient denies a history of skin cancer, denies bleeding/changing moles, and denies a history of skin rash. Neurologic: The patient denies a history of epilepsy/convulsions, denies headaches, denies head/spinal injuries, and denies stroke/TIA. Psychiatric: The patient NOTES psychiatric medications, NOTES depression, and denies voices, deniessubstance abuse. Endocrine: The patient denies thyroid disorders, denies diabetes, and denies hormonal problems. Hematologic: The patient denies a history of bruising, denies bleeding, and denies anemia, denies blood clots. Infections: The patient NOTES a history of measles and mumps, denies rheumatic fever, and denies sexually transmitted diseases. Musculoskeletal: The patient denies back pain/injury, denies back problems, denies sciatica, deniesknee/foot trouble, NOTES arthritis, or denies gout. When was patient's last Mammogram screening? Unknown Last Colonoscopy: 2017 Vesna Li RN PHYSICAL EXAMINATION: General: The patient is 62 year old female, well nourished, well hydrated in no acute distress. Thepatient is oriented to time, place, and person. VITALS: Blood pressure 126/80, pulse 83, temperature 36.4 C (97.6 F), height 166.4 cm (5' 5.5), weight 81.7 kg (180 lb 3.2 oz), SpO2 99 %. HEENT: Normal cephalic, ataumatic, pupils are equally round, sclera are anicteric, mucous membranesare moist, oropharynx is clear. Neck has no masses, asymmetry or lymphadenopathy. Thyroid is unremarkable. Respiratory: Clear to auscultation and percussion. Normal respiratory excursion and pattern. Cardiac: Examination is regular rate and rhythm. Abdominal exam: Soft, nontender, with no palpable masses. No hepatosplenomegaly. No palpable hernias. Rectal exam: exam deferred Extremities: no clubbing, cyanosis or edema. No adenopathy. Other: Tenderness in the left groin area. Shotty lymphadenopathy can be felt. Questionable mass versus hernia is felt. LABORATORY VALUES: As Noted RADIOLOGIC STUDIES: As Noted Assessment IMPRESSION: Left inguinal hernia (primary encounter diagnosis) Left groin pain PLAN: At this point we have to repeat a CAT scan of the abdomen and pelvis with IV and p.o. contrast. I am going to obtain a creatinine level on her prior to this being done. She had a previous CAT scan of her abdomen and pelvis in 2019 so we will be something to compare this to. I will see her back once the CT scan is completed. Ultrasound has little value here given her discomfort and since we already have a CAT scan to compare I think this is the best way to go. Diagnoses: (K40.90) Left inguinal hernia (primary encounter diagnosis) (R10.32) Left groin pain A letter was sent to Dr. Beto Pressley DO indicating the above finding for this patient. Return to Clinic: The patient is instructed to follow-up with me after the testing has been completed. Luisito Brizuela III, MD documented in this encounterSelect [facility] [place]23 Telephone encounter Note * Telephone Encounter - Leida Packer - 03/31/2022 2:43 PM EST Ordering provider: Shyanne Sparks Date of last office visit: 03/21/21 Date of next office visit: n/a Patient has moved to [place] and is in process of finding a new PCP closer to her home. Patient is requesting refill until she is established with new physician. Updated/Validated preferred pharmacy: Yes [facility] Patient instructed to contact the pharmacy prior to picking up the medication: Yes (1) Medication name: escitalopram (LEXAPRO) 20 MG tablet Medication dosage: 20 mg (Miligrams Monthly quantity needed: 30 How many day supply requestin days Medication route: oral (PO) Medication administration time(s): daily If taking medication PRN, reason for taking medication: N/A If this is a controlled substance do you receive this or any other controlled medication from any other doctor or facility: No Date of last [facility] (see medication tab): [id number] Miscellaneous Notes* Telephone Encounter - Leida Packer - 03/31/2022 2:43 PM EST Ordering provider: Shyanne Sparks Date of last office visit: 03/21/21 Date of next office visit: n/a Patient has moved to [place] and is in process of finding a new PCP closer to her home. Patient is requesting refill until she is established with new physician. Updated/Validated preferred pharmacy: Yes [facility] Patient instructed to contact the pharmacy prior to picking up the medication: Yes (1) Medication name: escitalopram (LEXAPRO) 20 MG tablet Medication dosage: 20 mg (Miligrams Monthly quantity needed: 30 How many day supply requestin days Medication route: oral (PO) Medication administration time(s): daily If taking medication PRN, reason for taking medication: N/A If this is a controlled substance do you receive this or any other controlled medication from any other doctor or facility: No Date of last refill (see medication tab): 09/06/21 documented in this [facility]05-31-2022 History of Present illness [id number] female who 2 days ago was doing some weeding and subsequently developed an itchy rash involving her face, neck, back, and arms. No difficulty swallowing or breathing. She has had a prior history of poison ze type rashes. Review of systems is otherwise negative for constitutional, ear no se and throat, neck, heart, lungs, and abdomen.[facility] Work Phone: [phone] History of Past illness Narrative* Problem Noted Date Resolved Date Chest pain 04/04/2014 08/14/2016 Alcohol abuse 04/04/2014 07/03/2016 Overview: - Sts drinks 2-3 beers per day since several years. - No hx of DTs. - DT protocol Abdominal pain 05/24/2012 08/14/2016 Obstipation 05/24/2012 07/03/2016 UTI (lower urinary tract infection) 05/24/2012 07/03/2016 documented as of this encounter (statuses as of 07/29/2022) [facility] History of Past illness Narrative* Problem Noted Date Resolved Date Chest pain 04/04/2014 08/14/2016 Alcohol abuse 04/04/2014 07/03/2016 Overview: - Sts drinks 2-3 beers per day since several years. - No hx of DTs. - DT protocol Abdominal pain 05/24/2012 08/14/2016 Obstipation 05/24/2012 07/03/2016 UTI (lower urinary tract infection) 05/24/2012 07/03/2016 documented as of this encounter (statuses as of 08/07/2022) [facility]02-24-2015 History of Past illness Narrative* Problem Noted Date Diagnosed Date Resolved Date Chest pain 04/04/2014 08/14/2016 Alcohol abuse 04/04/2014 07/03/2016 Overview: - Sts drinks 2-3 beers per day since several years. - No hx of DTs. - DT protocol Abdominal pain 05/24/2012 08/14/2016 Obstipation 05/24/2012 07/03/2016 UTI (lower urinary tract infection) 05/24/2012 07/03/2016 documented as of this encounter (statuses as of 12/13/2022) [address]24-2015 History of Past illness Narrative* Problem Noted Date Diagnosed Date Resolved Date Chest pain 04/04/2014 08/14/2016 Alcohol abuse 04/04/2014 07/03/2016 Overview: - Sts drinks 2-3 beers per day since several years. - No hx of DTs. - DT protocol Abdominal pain 05/24/2012 08/14/2016 Obstipation 05/24/2012 07/03/2016 UTI (lower urinary tract infection) 05/24/2012 07/03/2016 documented as of this encounter (statuses as of 12/13/2022) [facility] Diagnosis Left inguinal hernia- Primary Inguinal hernia without mention of obstruction or gangrene, unilateral or unspecified, (not specified as recurrent) Left groin pain Abdominal pain, left lower quadrant documented in this encounter [facility] note* Diagnosis Left inguinal hernia Inguinal hernia without mention of obstruction or gangrene, unilateral or unspecified, (not specified as recurrent) Left groin pain Abdominal pain, left lower quadrant documented in this encounter [facility] noteNo assessment information availableWHarrison [facility] Work Phone: Reason for referral (narrative)No reason for referral information availableWHarrison Community Hospital Work Phone: Summary Purpose Family History No Family History Records FoundNo Family History Records FoundNo Family History Records FoundNo Family History Records FoundNo Family History Records FoundNo Family History Records FoundNo Family History Records Found Advance Directives No Advanced Directives Records Found Advance Directive Response Recorded Date/ Time Living Will No March 20 5:05pm 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 No March 20, 2023 5:05pm Reason for Referral Specialty Diagnoses / Procedures Referred By Maninder t Referred To Contact CT IMAGING Diagnoses Left inguinal hernia Left groin pain Procedures CT ABD/PEL W IVCON CT ABD & PELVIS W/CONTRAST Luisito Brizuela MD [address] [place] [address] Ct Imaging Referral ID Status Reason Start Date Expiration Date Visits Requested Visits Authorized [id number] Authorized Auto-Generat ed Referral 07/29/2022 08/28/2023 1 1 Specialty Diagnoses / Procedures Referred By Contkarl t Referred To Contact CT IMAGING Diagnoses Left inguinal hernia Left groin pain Procedures CT ABD/PEL W IVCON CT ABD & PELVIS W/CONTRAST Luisito Brizuela MD [address] [place] [address] [place] [address] Referral ID Status Reason Start Date Expiration Date V isits Requested Visits Authorized [id number] Closed Auto-Generate d Referral 07/29/2022 08/28/2023 1 1 Chief Complaint and Reason for Visit Chief Complaint LEFT HIP/GROIN/LEG Chief Complaint Admit Date E-ORDER May 26, 2024 10: 03am Chief Complaint Admit Date E-ORDER May 26, 2024 10: 03am POST BETZAIDA June 14, 2024 10:16a m LUMBAR SPINE June 14, 2024 1:18pm Room 3 June 14, 2024 1:40pm Reason for Visit Admit Date Degenerative disc disease (D DD) of lumbar region with discogenic back pain June 14, 2024 1:18pm Lumbar radiculopathy June 14, 2024 1:18p m Additional Source Comments INFORMATION SOURCE (unrecogn ized section and content) DATE CREATED AUTHOR 08/05/2017 [facility] DATE CREATED AUTHOR AUTHOR'S ORGANIZ ATION 10/24/2019 [facility] DATE CREATED AUTHOR AUTHOR'S ORGANIZ ATION 03/03/2020 [facility] DATE CREATED AUTHOR AUTHOR'S ORGANIZ ATION 07/11/2021 [employer] DATE CREATED AUTHOR AUTHOR'S ORGANIZ ATION 04/04/2022 [facility] DATE CREATED AUTHOR AUTHOR'S ORGANIZ ATION 08/08/2022 [facility] DATE CREATED AUTHOR AUTHOR'S ORGANIZ ATION 07/16/2024 [facility] Source Comments (unrecognize d section and content) In the event this informatio n is protected by the Federal Confidentiality of Alcohol and Drug Abuse Patient Records regulations: The Federal rules restrict any use of the information to criminally investigate or prosecute any alcohol or drug abuse patient.[facility] the event this information is protected by the Federal Confidentiality of Alcohol and Drug Abuse Patient Records regulations: The Federal rules restrict any use of the information to criminally investigate or prosecute any alcohol or drug abuse patient.[facility] the event this information is protected by the Federal Confidentiality of Alcohol and Drug Abuse Patient Records regulations: The Federal rules restrict any use of the information to criminally investigate or prosecute any alcohol or drug abuse patient.[facility] the event this information is protected by the Federal Confidentiality of Alcohol and Drug Abuse Patient Records regulations: The Federal rules restrict any use of the information to criminally investigate or prosecute any alcohol or drug abuse patient.[facility] Reason for Visit (unrecogniz ed section and content) Reason Comments Consult Consult possible lef t inguinal hernia. Reason Comments Results Reason Comments Radiology CT Specialty Diagnoses / Procedures Referred By Contac t Referred To Contact CT IMAGING Diagnoses Left inguinal hernia Left groin pain Procedures CT ABD/PEL W IVCON CT ABD & PELVIS W/CONTRAST Luisito Brizuela MD [address] [facility] [place] [address] [place] [address] Referral ID Status Reason Start Date Expiration Date V isits Requested Visits Authorized [id number] Closed Auto-Generate d Referral 07/29/2022 08/28/2023 1 1 Reason Onset Date Comments Med Refill 03/31/2022 Care Teams (unrecognized sec tion and content) Rn Navigator Relationship Specialty Start Date End Date Beto Pressley, DO [address] [facility] [address] [place] [address] PCP - General Family Medicine 07/29/22 Rn Navigator Relationship Specialty Start Date End Date Beto Pressley DO [address] [facility] [address] [place] [address] PCP - General Family Medicine 07/29/22 Rn Navigator Relationship Specialty Start Date End Date Beto Pressley DO [address] [facility] [address] [place] [address] PCP - General Family Medicine 07/29/22 Rn Navigator Relationship Specialty Start Date End Date Beto Pressley DO [address] [facility] [address] [place] [address] PCP - General Family Medicine 07/29/22 Team Status: Active Member Role Status Dates Beto Pressley DO Primary Care Provider Active Team Status: Inactive Member Role Status Dates Beto Pressley DO Primary Care Provider Active Dr. Kirill Mcgarry , DO Emergency Provider Active Rn Navigator Relationship Specialty Start Date End Date Naz Young MD [facility], [address] [place] [address] PCP - General 06/28/20 Team Status: Active Member Role Status Dates Pretty Bucio MD Primary Care Provider Active Team Status: Inactive Member Role Status Cynthia Bucio MD Primary Care Provider Active St art: May 26, 2024 End: May 26, 2024 Pretty Bucio MD Attending Provider Active Start : May 26, 2024 End: May 26, 2024 Pretty Bucio MD Referring Provider Active Start : May 26, 2024 End: May 26, 2024 Team Status: Inactive Member Role Status Cynthia Bucio MD Primary Care Provider Active St art: June 14, 2024 End: June 14, 2024 Pretty Bucio MD Attending Provider Active Start : June 14, 2024 End: June 14, 2024 Pretty Bucio MD Referring Provider Active Start : June 14, 2024 End: June 14, 2024 Team Status: Inactive Member Role Status Cynthia Bucio MD Primary Care Provider Active St art: June 14, 2024 End: June 14, 2024 Pretty Bucio MD Referring Provider Active Start : June 14, 2024 End: June 14, 2024 MATEO Linda Attending Provider Active Star t: June 14, 2024 End: June 14, 2024 Team Status: Inactive Member Role Status Cynthia Bucio MD Primary Care Provider Active St art: June 14, 2024 End: June 14, 2024 Dr. Boby Link MD Attending Provider Active S tart: June 14, 2024 End: June 14, 2024 Goals (unrecognized section and content) Goals may be documented in a n alternate sectionGoals may be documented in an alternate sectionGoals may be documented in an alternate section FOR RECORDS PERTAINING TO PATIENTS WHO ARE OR HAVE BEEN ENROLLED IN A CHEMICAL DEPENDENCY/SUBSTANCEABUSE PROGRAM, SOME INFORMATION MAY BE OMITTED. This clinical summary was aggregated from multiple sources. Caution should be exercised in using it in the provision of clinical care. This summary normalizes information from multiple sources, and as a consequence, information in this document may materially change the coding, format and clinical context of patient data. In addition, data may be omitted in some cases. CLINICAL DECISIONS SHOULD BE BASED ON THE PRIMARY CLINICAL RECORDS. [facility]. provides no warranty or guarantee of the accuracy or completeness of information in this document.
== END | disposition home or self-care (01) ==
PROVIDERS: PCP Family Medicine; Referring Provider Family Medicine; Visit Provider Family Medicine
DX: G47.10 Hypersomnia, unspecified (principal)
CPT/HCPCS: 95806

== ENCOUNTER 2024-09-12 10:51 | Emergency (ER) | payer BC, SELFPAY ==
[2024-09-12 10:51] VITALS: BP 153/110; PULSE 73; RESP 14; TEMP 36.6; O2SAT 98; BMI 35.4
[2024-09-12] MEDS: Ketorolac 30 MG/ML Syringe IM (13:19)
[2024-09-12] MEDS: Lidocaine 5% Patch 1 PATCH TOPICAL (13:19)
--- NOTE | 2024-09-12 14:31 | ED.VIS.BACK ---
HPI History of Present Illness Chief Complaint: Back Narrative Narrative: Patient is a 64-year-old female presenting to emergency department for back pain. Patient states that she was pulling weeds on Thursday and thinks she pulled a muscle in her back. States that she has a history of degenerative disc disease in her lumbar back along with lumbar radiculopathy. States that this pain is similar to the back pain that she is experienced with this. She denies any trauma or falls. Denies any fever or chills. Denies any IV drug use, recent weight loss, new bowel or bladder incontinence or weakness in her legs. States that she has not been taking anything for pain. Patient states that since she was diagnosed with the back pain years ago she has had issues with urinary incontinence and tingling down her legs. This is not new to this episode. [facility] Medical History High cholesterol Home Medications ?Medication ?Instructions ?Recorded ?Last Taken ?Type ibuprofen 200 mg capsule 200 mg PO Q6H PRN 06/14/24 Unknown History meloxicam 15 mg tablet 15 mg PO QDAY #30 tabs 06/14/24 Unknown Rx Allergy/AdvReac Type Severity Reaction Status Date / Time No Known Allergies Allergy Verified 09/12/24 10:51 Surgical History Hx of resection of small bowel History of colon resection History of hysterectomy Hx of inguinal herniorrhaphy Social History (Updated 09/12/24 @ 11:22 by Kayce Ford) housing: apartment Smoking Status: Never smoker ROS ROS ED ROS Narrative Please see HPI EXAM Physical Exam Narrative Exam Narrative: Vital signs: Reviewed General: Alert and oriented. No acute distress HEENT: Head is normocephalic and atraumatic, sinuses nontender, pupils equal round and reactive. Nares are patent. Oropharynx and throat exams normal. Neck: Supple without lymphadenopathy nontender Cardiovascular: Regular rate and rhythm, no murmurs. No rubs or gallops. Normal S1 and S2 Respiratory: Clear to auscultation bilaterally. No wheezes, rales, rhonchi Abdominal: Soft and tender. Normal bowel sounds. No guarding or rebound. Nonsurgical abdomen Extremities: No tenderness. No bruising. Normal range of motion. Normal sensation. Skin: No rash or redness. Back: There is mild midline lumbar spinal tenderness to palpation but more significant bilateral paraspinal tenderness to palpation. There is no erythema of the back. Hips are stable and nontender to palpation. Bilateral lower extremities with normal strength and sensation. Able to flex and extend at hips and knees without difficulty. Neurological: Cranial nerves II through XII are grossly intact. Normal strength and sensation. Normal cerebellar function The rest of the physical exam is unremarkable Const Vital Signs: 09/12/24 10:51 Temperature 97.9 F Temperature Source Temporal Pulse Rate 73 Respiratory Rate 14 Blood Pressure 153/110 H Blood Pressure Mean 124 Pulse Ox 98 Oxygen Delivery Method Room Air MDM MDM MDM Narrative Medical decision making narrative: Patient is a 64-year-old female presenting to emergency department for back pain. Patient was seen and examined. Vitals are stable. Patient appears uncomfortable and bed, trying to get comfortable. Asks for Dilaudid when asked what normally works for her pain. I explained NSAIDs are the main stay for back pain. Patient given Toradol, Flexeril and lidocaine patch. She has no red flag back pain signs. She recently had x-ray imaging of her spine done by her orthopedic doctor in June. At this visit she had issues with the urinary incontinence and tingling down her legs. No new concerning back pain signs here today. There is no indication for additional imaging at this time emergently. I was notified by nursing staff that the patient did want to leave immediately and I was with a critical patient at the time. She did not want to wait on me to reevaluate her or discuss further evaluation. She did elope before I was able to reevaluate and further discuss her symptoms or recommendations. I was unable to discuss return precautions or discuss any further workup here in the ED with her. History & Record Review Discussion w/independent historian: Patient and Family Discharge Plan Triage Chief Complaint: Back ED Provider: Sinai Fung Dx/Rx/DC Orders Prescriptions: No Action ibuprofen 200 mg capsule 200 mg PO Q6H PRN meloxicam 15 mg tablet 15 mg PO QDAY Qty: 30 0RF Rx Instructions: take once day Primary Care Provider: Pretty Bucio Referrals: Pretty Bucio MD [Primary Care Provider] - Print Language: Russian Disposition Disposition: Elopement Discharge Date/Time: 09/12/24 14:35
--- NOTE | 2024-09-12 14:32 | ED.RN ---
Pt. daughter came out of room ad stated that her mother would like to leave. This RN educated that dr. would be in as soon as possible, that we had several critical pt. right now. daughter verbalized understanding and stated that her mom had said if i am doing to be in pain I will be in pain at home. Daughter educated on meds that she got and that pt. should not take and NSAIDS until after 6 pm. Daughter verbalized understanding. Dr. Fung notified that pt. was leaving but was unable to go and speak with her she was in with a stroke alert.
== END 2024-09-12 14:35 | disposition left against medical advice (07) ==
PROVIDERS: Emergency Provider Student in an Organized Health Care Education/Training Program; PCP Family Medicine; Visit Provider Student in an Organized Health Care Education/Training Program
DX: M51.369 Other intervertebral disc degeneration, lumbar region without mention of lumbar back pain or lower extremity pain (principal); E78.00 Pure hypercholesterolemia, unspecified; R32 Unspecified urinary incontinence; R20.2 Paresthesia of skin; Z53.29 Procedure and treatment not carried out because of patient's decision for other reasons
CPT/HCPCS: 96372; 99282

== ENCOUNTER 2024-09-23 12:31 | Outpatient (RCR) | payer BC, SELFPAY ==
--- NOTE | 2024-09-23 13:52 | HP.PTEVAL_ITS ---
Patient's Visit Information Visit Information Visit Information: CARMEL NARAYAN is a 64 year old F referred to Physical Therapy by MATEO Ball with a diagnosis of DDD lumbar, spondylolisthesis. Date of Evaluation: 09/23/24 Physical Therapist: Kirill Kramer, DPT, OCS, CSCS Visit Plan Frequency: 2x /Week Duration: 4 Weeks Plan: 2x/week for 4 weeks per script for aquatic therapy.. IE HEP trunk [id number], pelvic tilt 20x all 2x/day with HO, NS education Treat with aT for LB ROM, quad and HS strtching, core streength, general ex to I community or HEP. Subjective Subjective: Chronic back pain into leg. years of pain but worse lately. Has DDD in lumbar. Hurting bad since June. Pain is middle of LB into back of L hip, not down further but constant L foot tingly since June. Hard to relax at night, Lis on back and feel sharpness into ankle at that point. Has acid reflux and sleeps more upright. 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 Hobbies: working on [employer] adn yard work and they hurt. Using crutch to geet around lately due to pain. Hard to carry laundry down steps. No regular exercises, 10 min row every other day. Doing that this year. Feels better after rowing. Pain LBP: Pain Intensity (Out of 10): 3 Pain Intensity Range: 3 and 10 Comment: day after pulling weeds Objective Objective: Walks into PT with crutch in L UE due to back pain, slow and labored but mod I. Trasnfers chair and bed slow but I. Painful up from supine in central LB. Lumbar AROM ext nil and painful, flexion slow and strtchy, uses hands to come back up, SB mod deficits and no increased pain. Very little pelvic movement. Posture is flat lordosis in Lumbar and kyphotic t/s PA pressure tender lumbar but soft tissue not bad. reflexes 2/3 pateella adn achilles B sensation LE WNL tog ross light touch B. strength core 3/5 and unstable with LE testing, hips 3/5, knees 4-/5, ankles 4/5. - Slump and SLR today B. + L BARRY and FADDIR with limited hip ROM and will see ortho for this next month. Balance/Special Test Scores Oswestry Low Back Score: 19 Goals Goal 1:: I appropriate HEP pool or land to manage LB symptoms to minimium Goal Time Frame: 4-6 Weeks Goal 2:: Pain in LB and L leg 2/10 at worst adn 80% better Goal Time Frame: 4-6 Weeks Goal 3:: walk without AD into and out of PT Goal Time Frame: 4-6 Weeks Goal 4:: sleep without interruption at night due to pain Goal Time Frame: 4-6 Weeks Goal 5:: oswestry score 8 or less. Goal Time Frame: 4-6 Weeks Rehabilitation Potential Physical Therapy Diagnosis: stiffneess and weakness core and back pain leading to mobility deficits. Rehabilitation Potential: Fair Anticipated Interventions Patient/Client Instruction: Educate patient on: Condition and Plan of Care For the Purpose of:: To decrease pain, To increase ROM, To improve nutrient delivery to tissue, To improve muscle performance and motor function, To increase tolerance to activity/condition/position, To improve ability of physical actions for home/community/work/leisure and To improve gait and locomotor functions Therapeutic Exercise to Include: Strength training, Postural training, Flexibilty training, Gait and locomotor training, "In an aquatic setting", Passive ROM, Active ROM and Dynamic Lumbar Stabilization For the Purpose of:: To decrease pain, To increase ROM, To improve nutrient delivery to tissue, To improve muscle performance and motor function, To improve ability of physical actions for home/community/work/leisure and To improve gait and locomotor functions Text: Thank you for the opportunity to evaluate your patient. For Medicare and Medicare HMO plans, please review the plan of care and approve it. It will need to be FAXED BACK to us at [phone] for Medicare purposes. For Medicare only, by signing this I certify the plan of care. Please let me know if there are questions or concerns regarding this plan of care. Physician Signature: Date:
--- NOTE | 2024-12-01 12:24 | HP.PT.NRP ---
Patient Information Patient Information: CARMEL NARAYAN was seen in my office for initial evaluation on 09/23/24. The following Plan of Care was established for this patient: POC Established Initial Frequency: 2x /Week Initial Duration: 4 Weeks Anticipated Interventions Patient/Client Instruction: Educate patient on: Condition and Plan of Care For the Purpose of:: To decrease pain, To increase ROM, To improve nutrient delivery to tissue, To improve muscle performance and motor function, To increase tolerance to activity/condition/position, To improve ability of physical actions for home/community/work/leisure and To improve gait and locomotor functions Therapeutic Exercise to Include: Strength training, Postural training, Flexibilty training, Gait and locomotor training, "In an aquatic setting", Passive ROM, Active ROM and Dynamic Lumbar Stabilization For the Purpose of:: To decrease pain, To increase ROM, To improve nutrient delivery to tissue, To improve muscle performance and motor function, To improve ability of physical actions for home/community/work/leisure and To improve gait and locomotor functions Last Seen Last Seen: This patient was last seen in our office 09/23/24. Pertinent comments regarding their Physical therapy will appear below: Pt seen for IE adn POC establisheed. she cancelled future visits due to being in pain. At this point, it has been almost two months and I will discontinue due to nonattendancee. At this point I will be discontinuing this patient from physical therapy. I would be happy to see this patient again in the future if found appropriate by the physician. Thank you! Kirill Kramer, DPT, OCS, CSCS Balance/Gait/Functional tests Balance/Special Test Scores Oswestry Low Back Score: 19
== END 2024-09-23 19:00 | disposition home or self-care (01) ==
LOC: PT 12:31
PROVIDERS: PCP Family Medicine; Referring Provider Physician Assistant; Visit Provider Physician Assistant
DX: M41.56 Other secondary scoliosis, lumbar region (principal); M43.16 Spondylolisthesis, lumbar region; M51.362 Other intervertebral disc degeneration, lumbar region with discogenic back pain and lower extremity pain; M54.16 Radiculopathy, lumbar region
CPT/HCPCS: 97162

== ENCOUNTER → 2025-02-06 | Outpatient (CLI) | payer BC, SELFPAY | END | disposition home or self-care (01) | LOC: LABSPEC 11:17 | PROVIDERS: PCP Family Medicine; Visit Provider Family Medicine | DX: N39.0 Urinary tract infection, site not specified (principal) | CPT/HCPCS: 87077; 87086; 87088; 87186 ==